=== PATIENT | male | born 1955 | race Caucasian/White ===

== ENCOUNTER → 2020-02-10 08:29 | Outpatient (CLI) | payer MEDICARE, SELFPAY ==
[2020-02-11 06:07] LABS: COVID19 Sendout Not Detected (Not Detect)
== END ==
PROVIDERS: PCP Family Medicine; Visit Provider Physician Assistant
DX: Z11.59 Encounter for screening for other viral diseases (principal)
CPT/HCPCS: 87635

== ENCOUNTER 2020-02-13 06:20 | Day surgery (SDC) | payer MEDICARE, SELFPAY ==
[2020-02-12 07:55] VITALS: BMI 46.7
[2020-02-13] VITALS (10 sets, daily range): BP systolic 116–144; BP diastolic 49–69; PULSE 57–67; RESP 14–20; TEMP 36.3–36.8; O2SAT 92–96; BMI 46.7
[2020-02-13] MEDS: CELECOXIB 200 MG CAPSULE 400 MG PO (07:02)
[2020-02-13] MEDS: LACTATED RINGERS 1,000 ML 42 ML IV (07:03)
[2020-02-13] MEDS: DEXTROSE 50 % IN WATER 25 GM/50 ML SYRINGE IV (07:18)
--- NOTE | 2020-02-13 07:45 | PM.PREOP ---
Pre-operative Note COVID-19 COVID-19 status: Negative Result date/Date tested (Pos, Neg/Pending): 02/10/20 Interval Note History & Physical reviewed/Exam performed by Physician: Yes Changes to H&P: No
--- NOTE | 2020-02-13 07:46 | SUR.PREOP ---
Blood sugar up to 94 now after dextrose. Patient states he feels better. Notified OR nurse and anesthesiologist.
[2020-02-13] MEDS: CEFAZOLIN 2 GM/100 ML FROZ.PIGGY IV (07:49)
--- NOTE | 2020-02-13 08:22 | SUR.OPER ---
Lateral on padded OR bed with milian bag positioner, head on pillow, gel axillary roll in place, bottom leg bent with gel pad under knee to foot, upper leg straight and supported with pillows. Operative arm secured in shoulder positioning suspension device. non-operative arm secured on padded arm board. Safety belt at hip, tape over blanket securing lower legs.
[2020-02-13] MEDS: BUPIVACAINE 0.5% W/ EPI (PF) 30 ML VIAL INJ (08:31)
[2020-02-13] MEDS: SODIUM CHLORIDE IRRIG SOLUTION 3,000 ML, EPINEPHrine 1 MG IRR (08:31)
[2020-02-13] MEDS: fentaNYL 100 MCG/2 ML INJ IV ×4 (09:15→09:30)
--- NOTE | 2020-02-13 09:16 | P.OP_ITS ---
Operative Date/Time/Diagnoses Date of procedure: 02/13/20 Time of procedure: 09:16 Pre-op diagnosis: Left shoulder biceps tendinitis Post-op diagnosis: same Procedure & Clinicians Procedure: Left shoulder arthroscopic biceps tenodesis Same procedure as scheduled: Yes Indications: Whom the patient is a 64-year-old gentleman who has had a long history of left shoulder difficulty. He has had multiple prior operations including an anterior partial acromionectomy. He has gone on to develop significant discomfort which was partially relieved by biceps injection. He has agreed to arthroscopic biceps tenodesis after discussion the risks, benefits and alternatives. Risks discussed included but were not limited to: Failure of the procedure to relieve pain, pop by deformity, stiffness, infection, nerve damage, deep venous thrombosis, pulmonary embolism, stroke, myocardial infarction, permanent paralysis and . Surgeon: Vineet Uribe Valet Cashier: Marion Lebron Click Yes if Unassisted: No Anesthesia Type: General and Local Operative Notes Findings: 1. Intact glenohumeral cartilage 2. Glenoid labrum with degenerative fraying in the superior aspect from anterior to posterior without involvement of the biceps anchor 3. Intact glenohumeral ligaments 4. Intact subscapularis 5. Frayed and flattened biceps tendon 6. Intact supraspinatus 7. Intact infraspinatus 8. Normal axillary pouch 9. Subacromial space scarred in from prior surgery. 10. Absent anterior acromion 11. Distal clavicle previously excised 12. Exam under anesthesia notable for no limitations in range of motion and no obvious pathologic laxity. Closure Type: primary Specimen(s): none sent Prosthetic devices, grafts, tissues, transplants, or devices: One knotless 5.5 mm Healix Advance BR anchor Applied: implant(s) Estimated Blood Loss (mL): 10 Blood products transfused: none Procedure in detail: The patient was seen in the preoperative area where he identified his left shoulder as the operative site and this was marked with my initials. He received preoperative antibiotics and was taken to the operating room and placed on the operating room table in a supine position where he underwent a general anesthetic. Of note due to the patient's body habitus and sleep apnea it was felt he was not a good candidate for an interscalene block. After onset of satisfactory general anesthesia, the patient's left arm was examined under anesthesia and he was repositioned in the right lateral decubitus position with an axillary roll and padding for all pressure points. He was stabilized in this position using the beanbag and adhesive tape. The left arm was prepared from the fingertips to the base of the neck with ChloraPrep in the usual fashion and draped through sterile drapes. The arm was placed in 10 lb of balanced skin suspension. The subcutaneous landmarks were outlined on the skin with a marking pen. The prior portals were also marked. The posterior portal was created and the arthroscope inserted in the glenohumeral joint. An anterior superior portal was created overlying the rotator interval after diagnostic arthroscopy. A switching stick was used to introduce a 6 mm cannula through the rotator interval directly overlying the biceps as it exited the joint. An Arthrex FiberLink suture loop was placed around the biceps and the suture pulled through the loop to grasp the biceps. The suture was then penetrated through the biceps using a penetrating suture grasper just distal to the loop around the biceps to complete the grasping suture. Prior to placing the suture the bone underlying the mathew at the exit point of the biceps had been denuded to bleeding bone. A punch hole and an awl hole were created and the knotless anchor was placed over the FiberLink and introduced into the bone to complete the tenodesis. The biceps was then cut approximately 1 cm proximal to the suture loop. The biceps stump and the labral fraying were debrided with a shaver. The arthroscope was then maneuvered into the subacromial space through the posterior portal. Position in this area was confirmed by palpating the bone on the scope sheath. Visualization was extremely difficult based on the scarring. I elected not to perform a wide scar excision due to the fact that the patient had excellent range of motion and I was concerned about compromising rotator cuff integrity. All arthroscopic equipment was then withdrawn, the wounds were closed with 4 0 Monocryl and Steri-Strips. A total of 20 mL of 0.5% Marcaine with epinephrine was injected half in the subacromial space and half in the subcutaneous tissues for postoperative pain control. Complications: none Post-operative Condition: stable Disposition: PACU Plan for aftercare: The patient will be maintained on a standard subacromial d ecompression protocol with the additional restriction that he will not be allowed to lift any more than 1 lb with the left arm for 4 weeks. He will be discharged later today provided he satisfactorily recovers from his anesthesia.
[2020-02-13] MEDS: OXYCODONE IR 5 MG TABLET PO ×2 (09:32→10:01)
[2020-02-13] MEDS: HYDROMORPHONE 2 MG INJ IV ×2 (09:45→09:55)
[2020-02-13] MEDS: ACETAMINOPHEN 325 MG TABLET 975 MG PO (11:07)
--- NOTE | 2020-02-13 11:11 | SUR.PHASEII ---
Weaning patient from 2L O2 to room air; encouraged adequate resp; range 88-92%. Pt awake, talking, tolerating PO well. Pain currently 6/10, PO rx given, states that pain level is improving.
--- NOTE | 2020-02-13 11:15 | SUR.PHASEII ---
patient states that he has oxygen at home to use with his CPAP, instructed him to use any time he is dozing and is taking the narcotic.
--- NOTE | 2020-02-13 11:27 | SUR.PHASEII ---
1120 Discussed pts pain level (11/21) and O2 sat 91% with Dr. Hackett. She approved discharge with patient planning to use O2 and CPAP at home. No further pain meds ordered by
--- NOTE | 2020-02-13 11:43 | SUR.PHASEII ---
note: care was assumed from Chantal Gibbons RN; pt on O2 at 2LNP and continuous pulse ox. Pt weaned to 1L and then room air. See other notes.
== END 2020-02-13 11:33 | disposition home or self-care (01) ==
PROVIDERS: PCP Family Medicine; Referring Provider Family Medicine; Visit Provider Orthopaedic Surgery
PROC: (CPT 29805; principal; 2020-02-13 07:45)
DX: M75.22 Bicipital tendinitis, left shoulder (principal); E66.9 Obesity, unspecified; G47.33 Obstructive sleep apnea (adult) (pediatric); E11.9 Type 2 diabetes mellitus without complications; I11.0 Hypertensive heart disease with heart failure; K21.9 Gastro-esophageal reflux disease without esophagitis; J45.909 Unspecified asthma, uncomplicated; Z87.891 Personal history of nicotine dependence; Z79.4 Long term (current) use of insulin; Z68.42 Body mass index [BMI] 45.0-49.9, adult
CPT/HCPCS: 29828; 29823; J0171; J0330; J0690; J1170; J2405; J2704; J3010

== ENCOUNTER → 2020-06-15 08:48 | Outpatient (CLI) | payer MEDICARE, SELFPAY ==
[2020-06-15 10:13] LABS: COVID19 -Nasal RAPID Negative (Negative)
== END ==
PROVIDERS: PCP Family Medicine; Visit Provider Physician Assistant
DX: Z20.828 Contact with and (suspected) exposure to other viral communicable diseases (principal)
CPT/HCPCS: 87635

== ENCOUNTER 2020-06-17 06:18 | Inpatient (IN) | payer MEDICARE, SELFPAY ==
[2020-06-11 08:52] VITALS: BMI 46.3
[2020-06-17] VITALS (21 sets, daily range): BP systolic 92–139; BP diastolic 35–74; PULSE 56–68; RESP 12–26; TEMP 35.8–36.8; O2SAT 3–98; BMI 47.2
--- NOTE | 2020-06-17 | PATH_ITS ---
[facility] Accession Number: [id number] . 01 Material submitted: . PART A: knee - RIGHT KNEE SYNOVIUM PART B: femur - RIGHT FEMUR PART C: femur - RIGHT FEMUR #2 PART D: tibia - RIGHT TIBIA #1 PART E: tibia - RIGHT TIBIA #2 . 01 Clinical history: . FROZEN SECTION DX: NO NEUTROPHILS IDENTIFIED ON FEDERAL APPELLATE LAW CLERK SECTIONS. B,C,D,E: #2,#3,#4,#5: NO NEUTROPHILS IDENTIFIED GROSS DESCRIPTION: A: RIGHT KNEE SYNOVIUM: 2.4 X 8 X 0.5CM MCNEAL-WHITE IRREGULAR SOFT TISSUE WITH A 3CM X 0.3 X 0.3 EDGE OF LIGHT BROWN DISCOLORATION. B: RIGHT FEMUR #1: 1.7 X 1.8 X 0.5 CM TRIANGULAR SOFT WHITE-MCNEAL TISSUE. C: RIGHT FEMUR #2: 2 PCS 1 X 0.5 X 0.1 CM AND 2.0 X 0.5X 0.8CM MCNEAL PINK IRREGULAR SOFT TISSUE. D: 0.7 X 0.9 X 0.4 RED-BROWN IRREGULAR SOFT TISSUE FRAGMENT. E: 1.2 X 0.5 X 0.5 SHAGGY MCNEAL BROWN SOFT TISSUE . 02 Frozen section diagnosis: . FSA: NO NEUTROPHILS IDENTIFIED ON FEDERAL APPELLATE LAW CLERK SECTIONS. FSB: NO NEUTROPHILS IDENTIFIED. FSC: NO NEUTROPHILS IDENTIFIED. FSD: NO NEUTROPHILS IDENTIFIED. FSE: NO NEUTROPHILS IDENTIFIED. . Dr. Garner discussed the intraoperative consultation results with Dr. Uribe on 06/17/2020.Frozen section was performed at [address] JOSE/TAYLOR . 03 Diagnosis: A-E. Right Knee Synovium, Right Femur, Right Femur #2, Right Tibia #1, Right Tibia #2, Revision and Biopsies, Respectively: Synovial-like tissue with reactive changes, including sheets of histiocytes, scattered foreign body giant cells, collagenous fibrous tissue, occasional calcifications and scattered lymphocytes, consistent with periprosthetic changes. Negative for active/neutrophilic inflammation. No evidence of neoplasm. [facility] 06/19/2020 1605 Local . 03 Electronically signed: . Liseth Garner MD, Pathologist NPI- [id number] . 01 Gross description: . A. Received fresh for frozen section diagnosis at [facility], labeled right knee synovium consists of an 8.0 x 2.4 x 0.5 cm mcneal-white irregular soft tissue fragment with a 3.0 x 0.3 x 0.3 cm edge of light brown discoloration. Title Investigator sections are submitted for frozen section diagnosis on 06/17/[address] Garner and reported to Dr. Uribe. Title Investigator sections are submitted. . A1 - frozen section remnants. A2 - denial management representative sections of unfrozen tissue. . B. Received fresh for frozen section diagnosis, labeled 'right femur consists of a 1.8 x 1.7 x 0.5 cm triangular soft white-mcneal tissue fragment. The frozen section is done at [facility] on 06/17/[address] Garner and reported to Dr. Uribe. The specimen is entirely submitted. . B1 - frozen section remnant. . C. Received fresh for frozen section diagnosis, labeled right femur specimen #2 consists of two mcneal-pink irregular fragments of soft tissue measuring 1.0 x 0.5 x 0.1 cm and 2.0 x 0.5 x 0.8 cm. The frozen section was done at [facility] on 06/17/[address] Garner and reported to Dr. Uribe. The specimen is entirely submitted. . C1 - frozen section remnants. . D. Received fresh for frozen section diagnosis, labeled right tibia specimen tibia #1 consists of a 0.9 x 0.7 x 0.4 cm red-brown irregular soft tissue fragment. The frozen section was done at [facility] on 06/17/[address] Garner and reported to Dr. Uribe. The specimen is entirely submitted. . D1 - frozen section remnant. . E. Received fresh for frozen section diagnosis, labeled right tibia specimen tibia #2 consists of a 1.2 x 0.5 x 0.5 cm shaggy mcneal-brown soft tissue fragment. The frozen section was done at [facility] on 06/17/[address] Garner and reported to Dr. Uribe. The specimen is entirely submitted. . E1 - frozen section remnant. (EA:[id number]) /MRV 06/18/2020 1036 Local . 03 Pathologist provided ICD-10: Z96.659 . 03 CPT . 378618, 379845, 837669, 568630, 535905, 662259, 573707, 657519, 429560, [id number] Performed at: 01 [facility] [address] [id number] MD Milton Keane MD Phone: [phone] Performed at: 02 [facility] [place] [id number] [place] [id number] MD Corinne Silva MD Phone: [phone] Performed at: [address] [facility] [address] [id number] MD Liseth Garner MD Phone: [phone]
--- NOTE | 2020-06-17 07:07 | DI.RAD.S_ITS ---
PROCEDURE: XR KNEE RT 1TO2V INDICATIONS: post op total knee TECHNIQUE: 2 view(s) of the knee acquired. COMPARISON: None. FINDINGS: Bones: Patient is status post knee joint arthroplasty. Hardware components are in expected positions. Visualized bony structures are intact. Soft tissues: Overlying postoperative changes are noted. IMPRESSION: Expected postoperative appearance Dictated by: Sathish Bell M.D. on 06/17/2020 at 12:23 Approved by: Sathish Bell M.D. on 06/17/2020 at 12:24
[2020-06-17] MEDS: CELECOXIB 200 MG CAPSULE PO (07:20)
[2020-06-17] MEDS: ACETAMINOPHEN 325 MG TABLET 975 MG PO (07:20)
[2020-06-17] MEDS: PREGABALIN 75 MG CAPSULE PO (07:20)
--- NOTE | 2020-06-17 07:34 | PM.PREOP ---
Pre-operative Note COVID-19 COVID-19 status: Negative Result date/Date tested (Pos, Neg/Pending): 06/15/20 Interval Note History & Physical reviewed/Exam performed by Physician: Yes Changes to H&P: No
[2020-06-17] MEDS: LACTATED RINGERS 1,000 ML 42 ML IV ×2 (07:38→09:02)
[2020-06-17] MEDS: CEFAZOLIN VIAL 3 GM in SODIUM CHLORIDE 0.9% 100 ML 200 ML IV ×3 (07:53→23:49)
[2020-06-17] MEDS: TRANEXAMIC ACID 1,000 MG VIAL 1000 MG INJ (08:20)
--- NOTE | 2020-06-17 08:26 | SUR.OPER ---
Supine on padded OR bed, head on pillow, arms secured on padded arm boards at <90 degrees abduction, legs uncrossed, safety belt at lower abdomen, tape over blanket over left lower leg. Right leg in Demayo positioner.
[2020-06-17] MEDS: MORPHINE 4 MG/ML INJ INJ (08:37)
[2020-06-17] MEDS: BUPIVACAINE LIPOSOME 266 MG/20 ML VIAL INJ (08:37)
[2020-06-17] MEDS: BUPIVACAINE 0.25% W/ EPI 30 ML VIAL 60 ML INJ (08:38)
[2020-06-17] MEDS: TRANEXAMIC ACID 1,000 MG VIAL 1000 MG IV (11:10)
--- NOTE | 2020-06-17 11:21 | PM.OP.1 ---
Operative Date/Time/Diagnoses Date of procedure: 06/17/20 Time of procedure: 11:21 Pre-op diagnosis: Failed right knee replacement Post-op diagnosis: same Procedure & Clinicians Procedure: Right revision total knee replacement of both femur and tibia Same procedure as scheduled: Yes Indications: The patient is a 65-year-old gentleman who had a total knee replacement done approximately 8-10 years ago. He presented 1 year ago to [facility] with a swollen painful knee which was thought to be infected. This was treated with an arthroscopic washout. There were no signs of infection subsequently on aspiration and all laboratory studies. The patient is taken to the operating room for revision of his painful total knee. He was aware that the surgery could involve an explant with a cement spacer or a revision total knee depending on the findings of pathology. He agreed to surgery after discussion the risks benefits and alternatives. Risks discussed included but were not limited to: Failure to improve symptoms, stiffness, infection, nerve damage, deep venous thrombosis, pulmonary embolism, stroke, myocardial infarction, permanent paralysis and . Surgeon: Vineet Uribe Regional Loss Prevention Manager: Vinny Corona Click Yes if Unassisted: No Anesthesia Type: General, Spinal and Local Operative Notes Findings: The knee did not appear to be infected. The femur was well fixed. The tibial component had de bonded from the cement mantle. Closure Type: primary Specimen(s): other (Swabs were sent for culture. Five different specimens were sent for pathology all of which returned negative for neutrophils.) Prosthetic devices, grafts, tissues, transplants, or devices: Implants used in this procedure were manufactured by the [employer] and included a legion constrained revision total knee system with a size 6 right revision tibial base plate with a 2 mm offset press operator helper a 15 mm straight 160 mm long stem, the femoral side included a size 7 Oxinium constrained femoral component with 2 5 mm distal screw on femoral wedges, a 4 mm offset press operator helper and a 16 mm 160 mm long stem. There was a 13 mm posterior stabilized tibial insert. The patella was left in situ as it was well fixed and there was no evidence of infection. Removed from the patient were two DePuy components with a posterior stabilized PFC Sigma femur and a rotating platform tibial component. Applied: implant(s) Estimated Blood Loss (mL): 100 Blood products transfused: none Tourniquet time (min): 132 Procedure in detail: The patient was seen in the pre-operative area, where the patient identified the right knee as the operative site and this was marked with my initials. The patient received pre-operative antibiotics, and was taken to the operating room and placed on the operative table in the supine position. After satisfactory anesthesia, a timekeeper supervisor out was performed. The right leg was encircled with a tourniquet about the proximal thigh, and the leg was prepared from the toes to the tourniquet with ChloroPrep in the usual fashion and draped through sterile drapes. The leg was elevated and exsanguinated with Eschmark bandage and the tourniquet inflated to 250 mmHg pressure. The knee was approached through an approximately 18 cm incision centered over the patella, excising the widened proximal portion of the scar and an area overlying the patella where there was heavy keratosis. This was carried into the knee through a medial parapatellar arthrotomy. The medial soft tissue sleeve was elevated from the tibia to allow better access. The scar tissue from behind the patellar tendon was also excised and the capsule was elevated from the lateral proximal tibia as well. Synovium was obtained for pathologic review. The rotating tibial insert was removed. The mini saw and osteotomes were used to break down the cement mantle behind the femur and the femoral component was removed. Soft tissue from 2 areas behind the femur was removed and sent for pathology. This process that was then repeated for the tibia and again 2 tissue samples were sent for pathologic review. At this point the leg was wrapped lightly with the Esmarch bandage with the sponges in the knee and the tourniquet deflated at a tourniquet time of 58 minutes while we waited for pathology. All pathology returned negative for neutrophils. The tourniquet was then reinflated 16 minutes later to 250 mm of mercury. The Reamers were placed in the tibia up to a size 15 which had good cortical bite. This was used as an intramedullary guide for the proximal tibial skin cut. There was no need for tibial augmentation. The 2 mm offset guide made the tibial plate fit in the best position. The plate was pinned and the area over drilled for the press operator helper and the proximal tibial stem. The fin cuts were also made. The trial tibia was assembled and placed and pinned in position. We then used the cylindrical reamers on the femur. It appeared that the size 7 was the closest match to the size that had been removed. This set on the anterior femoral cortex with a 4 mm posterior offset. The appropriate reaming was done to accommodate the press operator helper on the femur as well. The anterior posterior and chamfer cuts were made after a distal skim cut. The rotational landmarks of Sevier's line and the transepicondylar axis were marked on the femur with electrocautery and it appeared that the rotation of the femoral component was appropriate. The posterior capsule was injected with part of a mixture of 50 ml 0.25% Marcaine mixed with 20 ml Exparel and 4 mg of morphine for post-operative pain control. The remainder of this mixture was injected into the capsule and subcutaneous tissues during cement curing. There was no need for a lateral release. The trials were then removed, and the revision components assembled on the back table. The bone was prepared with pulsatile lavage, and dried with a sponge. Cement was applied and the final prosthetics placed. Excess cement was removed during and after cement curing. After confirming there was no extruded cement posteriorly, the final tibial insert was placed. The knee was copiously irrigated and the tourniquet deflated at a total tourniquet time of 132 minutes for both uses. Hemostasis was obtained. The capsule was closed with interrupted # 2 polyester suture. The subcutaneous layer was closed with 3-0 Vicryl, and the skin with [place] and Dermabond. An Merle dressing was applied and the patient was taken to recovery having tolerated the procedure well. Complications: none Post-operative Condition: stable Disposition: PACU Plan for aftercare: The patient will be maintained on a standard total knee protocol with weight-bearing as tolerated. He will be discharged when he is safe for his home environment.
[2020-06-17] MEDS: OXYCODONE IR 5 MG TABLET 10 MG PO (12:06)
[2020-06-17] MEDS: ONDANSETRON 4 MG/2 ML INJ IV (12:46)
[2020-06-17] MEDS: LACTATED RINGERS 1,000 ML 100 ML IV ×2 (12:49→22:57)
[2020-06-17] MEDS: IBUPROFEN 400 MG TABLET PO ×3 (13:31→20:37)
[2020-06-17] MEDS: INSULIN ASPART 100 UNIT/ML INSULN PEN SUBCUT (13:34)
[2020-06-17] MEDS: diphenhydrAMINE 25 MG TABLET PO ×2 (14:34→20:35)
[2020-06-17] MEDS: ACETAMINOPHEN 325 MG TABLET 650 MG PO ×2 (14:35→20:38)
--- NOTE | 2020-06-17 15:00 | PT.IIE ---
Current Diagnoses Broken internal right knee prosthesis, initial encounter (06/17/20) Surgery Performed Operation Date: 06/17/20 07:45 Actual Procedures p Total Knee Arthroplasty Revision (Right) - Vineet Uribe MD Surgical History (Last Updated 06/11/20 @ 09:27 by Christina Jefferson RN) History of arthroplasty of right knee (~2008) History of arthroscopy of left shoulder (02/13/20) History of bladder surgery History of bone graft History of lumbar spinal fusion Hx of appendectomy Hx of arthroscopy of left knee Hx of arthroscopy of right knee Hx of cervical spine surgery Hx of eye surgery Hx of foot surgery Hx of hernia repair Hx of sinus surgery Hx of tonsillectomy S/P TURP Medical History (Last Updated 06/11/20 @ 09:33 by Christina Jefferson RN) SAULO (acute kidney injury) Asthma Bladder cancer (~05/2010) BPH w urinary obs/LUTS CKD stage G3a/A3, GFR 45-59 and albumin creatinine ratio >300 mg/g Diabetes mellitus, type II GERD (gastroesophageal reflux disease) Gout HLD (hyperlipidemia) HTN (hypertension) Hyperkalemia Hypoxemia JESSIE on CPAP PVD (peripheral vascular disease) Right-sided carotid artery disease RLS (restless legs syndrome) TIA (transient ischemic attack) Physical Therapy Inpatient Evaluation/Re-Eval M1 PT/OT-IP Prior Functional Status Start: 06/17/20 12:50 Freq: NEEDED Status: Active Protocol: Document 06/17/20 14:57 AW (Rec: 06/17/20 15:25 AW [id number]) Medical Review Prior Functional Status Medical History Reviewed Yes Communication WNL. Pt is an effective verbal communicator. Mobility and Gait Pt states he ambulates slowly with a maximum of one block before needing a rest due to pain. He uses a SPC when my knee is really sore. Activities of Daily Living and IADL's Independent with all ADL's. Pt is an active auto transport driver. Prior Functional Level (Other details) Pt had R TKA in March 2009, multiple shoulder surgeries, lumbar and cervical surgery over the years. One year ago, he developed pain in his right knee which was treated with I &D. No infectious source was ever identified. Social History Household Members spouse,family Living Arrangements House Number of Floors (Floors) Two Floors Number of Stairs To Enter/Railing? 7 NICCI with concrete wide bilateral rails. Pt plans to stay main level as long as needed before going up stairs to regular bedroom. Home Environment Standard Height Toilet,Tub/ Shower Home Equipment Front Wheel Walker,Straight Cane,Crutches,Raised Toilet Seat w/Armrests,Shower Seat with Backrest,Hand Held Shower ,Collar Tailor,Sock Aid Employment Status Retired Additional Social History Comment Pt has an adjustable bed at home. He lives in with his , Regla, and adult daughter, Michelle. His brother lives in [place] and will be pt's ride at discharge . He and pt's /family will be able to assist as needed. M2 PT-IP Current Condition Start: 06/17/20 12:50 Freq: NEEDED Status: Active Protocol: Document 06/17/20 14:57 AW (Rec: 06/17/20 15:27 AW [id number]) Physical Therapy Current Condition Current Condition Evaluation Date 06/17/20 Treatment Diagnosis R TKA revision; difficulty in walking Onset Date 06/17/20 Weight Bearing Status Weight Bearing Status Weight Bear as Tolerated M3 PT-IP Subjective Start: 06/17/20 12:50 Freq: NEEDED Status: Active Protocol: Document 06/17/20 14:57 AW (Rec: 06/17/20 15:27 AW [id number]) Subjective Physical Therapy Visit Type Type Initial Evaluation Visit Start Time 14:13 Visit Stop Time 14:57 Total Visit Minutes 44 Number of CEMENT HANDLER Visits 0 Physical Therapy Visit Comments Patient Comments I've been looking forward to PT. Patient Goals Home with assist Therapy Pain Assessment Pain When Pain Assessed During Mobility Pain Present Pain Present Pain Reported Location right knee Intensity 7 Scale Used 6/10 at rest; 7/10 with WB Pain Management Techniques Apply Cold,Timing of Activity with Medications M4 PT-IP Mobility and Gait Start: 06/17/20 12:50 Freq: NEEDED Status: Active Protocol: Document 06/17/20 14:57 AW (Rec: 06/17/20 16:49 AW [id number]) PT-Bed Mobility Assessment Supine to Sit Supine to Sit Standby Assistance Scooting Scooting to Edge of Bed Standby Assistance PT-Transfer Assessment Sit to and From Stand Sit to and from Stand Standby Assistance Equipment Transfer Assistive Device Gait Belt,Front Wheeled Walker Orthotic/Prosthetic Devices or Brace: No Transfers Transfer Destination Chair Transfer Technique Stand Step Pivot Transfer Ability Level of Assist Standby Assistance Comments Mobility Comments Pt completed all bed mobility, sit to stand, ambulation with FWW, and transfers SBA with no LOB. Gait Assessment Gait Gait Assistance Required: Standby Assistance Distance (Feet) 225 Able to Maintain Weight Bearing Status Yes During Gait Assistive Devices Assistive Device Gait Belt,Front Wheeled Walker Orthotic/Prosthetic Devices or Brace: No Gait Deviations General Gait Pattern Antalgic,Decreased Stride Length,Decreased Feet Clearance,Flexed Trunk,Step-to Gait,Wide Based Gait Factors Limiting Gait Function Factors Limiting Gait Function Decreased Activity Tolerance, Decreased Strength,Pain,Poor Balance Comments Gait Comments Gait pattern was step-to initially with improvement in response to cues but gait degraded with increased distance. Pt did not require increase in assist. Stair Climbing Assessment Comments Stair Climbing Comments Not assessed. PT-Balance Assessment Sitting Balance and Reactions Static Sitting Balance Ability Good Dynamic Sitting Balance Ability Good Standing Balance and Reactions Static Standing Balance Ability Good Dynamic Standing Balance Ability Good Device Used FWW M5 PT-IP Objective Assessments Start: 06/17/20 12:50 Freq: NEEDED Status: Active Protocol: Document 06/17/20 14:57 AW (Rec: 06/17/20 16:49 AW [id number]) Orientation Orientation/Cognition Level of Alertness Alert Orientation Name,Age,Birthday,Month,Date, Year,Day of Week,Place, Situation Language Function Ability No Deficits Noted Safety Awareness Understands Safety Issues Memory Description No Deficits Noted Gross Range of Motion Lower Extremity ROM Assessment Right Impaired Strength Lower Extremity Strength Assessment Right Impaired Hip 4/5 Knee 3+/5 Ankle 4+/5 Comments Strength Comments LLE grossly 5/5 Coordination Assessment Gross Coordination Gross Coordination WNL Sensation Assessment Sensation Gross Sensation WNL Comments Sensation Comments Pt denied numbness in BLE Muscle Tone Muscle Tone WNL Yes M6 PT-IP Treatment Start: 06/17/20 12:50 Freq: NEEDED Status: Active Protocol: Document 06/17/20 14:57 AW (Rec: 06/17/20 16:49 AW [id number]) Physical Therapy Treatment Exercises Exercises Ankle Pumps,Quad Sets,Heel Slides,Passive Knee Extension Hang Education Education Provided Precautions,Weight Bearing Status,Post-Op Packet,Safety Other Treatments Other Treatment Performed Provided education on role of PT, plan of care, weightbearing status, and safe use of FWW. M7 PT-IP Assessment and Plan Start: 06/17/20 12:50 Freq: NEEDED Status: Active Protocol: Document 06/17/20 14:57 AW (Rec: 06/17/20 16:49 AW [id number]) PT Summary Assessment and Plan Potential Rehabilitation Potential Excellent Status of Condition at Evaluation Evolving Summary Impairments Pain,ROM,Strength,Balance,Bed Mobility,Transfers,Gait Assessment Summary Taj is a 65 yo man seen for PT evaluation on POD0 following revision R TKA. He had his original surgery in 2008 and has had increasing pain over the past year. He has had multiple other orthopedic surgeries including shoulder, lumbar, and cervical procedures. Pt is independent in all regards at baseline except for occasional use of SPC when the knee is really sore. Pt required SBA for all mobility on evaluation. PT anticipates he will progress and be safe to discharge home with assist and outpatient PT once medically cleared. Pt has already scheduled outpatient evaluation at [facility] in . Goals Bed Mobility Goal Independent Transfer Goal Independent,Front Wheeled Walker Gait Goal Independent,Front Wheel Walker Gait Distance 200 Other Goals - up/down 7 steps with unilateral rail SBA Days to Meet Goals 2 Frequency of Treatment Frequency Of Treatment Twice a Day Treatment Plan Physical Therapy Treatment Plan Bed Mobility Training,Transfer Training,Gait Training, Therapeutic Exercise,Balance Retraining,Post Op Education, Discharge Planning,Hot or Cold Pack Recommendations To Nursing Amount of Assist Needed Standby Assistance Discharge Recommendations PT Discharge Recommendations Home with Assistance, Outpatient PT Transportation Needs at Discharge Private Vehicle
--- NOTE | 2020-06-17 15:36 | PC.ADMIT ---
[facility] Admission Note: Safe hand off from OR. Patient came to the floor at 1330. Patient was on 4 liters NC, desat's without Oxygen into the 80's. VSS but patient is a little hypotensive. Patient is 95% on 4 liters of O2. BS check when he came to the floor was 139 with 2 units of coverage given. Patient is tolerating PO intake no nausea. Pain is 6/10. Patient has been itchy. Juliet Mims PAC telephoned and a verbal order was given for 25mg of Benadryl Q4 as needed. SCD's applied, IS provided. The bed is low and locked, call light within reach and teaching done, bed is low and locked. The patient,Alvin Donovan,65 y/o, was given written information regarding hospital policies, unit procedures and contact persons. Patient's smoking status: Former smoker. Vital Signs - 8 hr 06/17/20 11:25 06/17/20 11:30 06/17/20 11:35 Temperature 97 F L Pulse Rate 68 67 67 Respiratory Rate 12 18 20 Blood Pressure 93/52 L 113/50 L 112/37 L Pulse Oximetry 95 94 3 L 06/17/20 11:40 06/17/20 11:45 06/17/20 11:50 Temperature Pulse Rate 65 66 66 Respiratory Rate 26 H 18 19 Blood Pressure 113/35 L 100/55 L 103/50 L Pulse Oximetry 94 95 4 L 06/17/20 11:55 06/17/20 12:01 06/17/20 12:06 Temperature 97.3 F L 97.2 F L Pulse Rate 65 65 Respiratory Rate 22 18 Blood Pressure 117/74 117/41 L Pulse Oximetry 94 93 06/17/20 12:15 06/17/20 12:45 06/17/20 13:15 Temperature 97.0 F L 97.2 F L 97.2 F L Pulse Rate 68 56 L 60 Respiratory Rate 20 20 22 Blood Pressure 117/49 L 92/48 L 99/42 L Pulse Oximetry 94 95 94 06/17/20 14:15 06/17/20 15:15 06/17/20 15:17 Temperature 97.6 F 97.5 F L Pulse Rate 60 58 L 60 Respiratory Rate 20 22 16 Blood Pressure 109/52 L 112/61 Pulse Oximetry 96 95 97
[2020-06-17] MEDS: DOCUSATE 100 MG CAPSULE PO (20:35)
[2020-06-17] MEDS: METFORMIN HCL 500 MG TABLET 1000 MG PO (20:36)
[2020-06-17] MEDS: PANTOPRAZOLE 20 MG TABLET PO (20:36)
[2020-06-17] MEDS: FUROSEMIDE 40 MG TABLET PO (20:38)
[2020-06-17] MEDS: AMLODIPINE 5 MG TABLET 10 MG PO (20:38)
[2020-06-17] MEDS: SIMVASTATIN 20 MG TABLET PO (20:38)
[2020-06-17] MEDS: OXYCODONE IR 10 MG TABLET PO (20:38)
[2020-06-17] MEDS: PRAMIPEXOLE 0.25 MG TABLET 0.75 MG PO (20:39)
[2020-06-17] MEDS: MAGNESIUM CHLORIDE 64 MG TABLET 128 MG PO (20:57)
[2020-06-17] MEDS: atenoloL 50 MG TABLET 100 MG PO (20:57)
[2020-06-17] MEDS: TERAZOSIN 5 MG CAPSULE PO (20:57)
[2020-06-17] MEDS: INSULIN GLARGINE 100 UNIT/ML 3ML PEN 120 UNIT SUBCUT (21:16)
--- NOTE | 2020-06-17 23:22 | PC.NURSE ---
Stable post op course. A/O, med @ 2130 for discomfort w/good relief. IVF infusing as per MD orders w/o [employer]. Angie/Acewrap ds to right surgical knee CDI. CBG = AC= 83; HS = 103 Received Lantus dose @ HS. Call light w/in reach, bed alarm on for pt safety. Continue w/plan of care.
[2020-06-18] VITALS (9 sets, daily range): BP systolic 94–131; BP diastolic 45–74; PULSE 62–85; RESP 13–18; TEMP 36.3–36.9; O2SAT 91–97
[2020-06-18] MEDS: IBUPROFEN 400 MG TABLET PO ×4 (00:34→14:15)
[2020-06-18] MEDS: OXYCODONE IR 5 MG TABLET PO (00:34)
--- NOTE | 2020-06-18 01:05 | PC.NURSE ---
Addendum entered by Almita Bolivar R.N. 06/18/20 04:49: Complains of 7/10 right knee pain and itching; medicated with Oxycodone + Ibuprofen + Benadryl. CBG check earlier was 66 so patient given snack but fell asleep before eating it so when back to recheck BG had to be awakened. Ate snack after which BG only 67 so given additional snack and will recheck when complete. Addendum entered by Almita Bolivar R.N. 06/18/20 02:15: Correction to previous documentation: fall risk score is high and bed alarm is activated Original Note: 2352 patient seen and assessed. Is alert and oriented. Breath sounds diminished at bases; using CPAP + 2L/min oxygen bled in with sat of 91%. HRR. BP low at 94/49 but is asymptomatic. Denies nausea. BT hypoactive but states he has passed small amount of flatus. Had not voided since return from surgery and had bladder scan > 400cc so in/out cath done at change of shift with 425cc dark maria victoria urine returned. Is able to move himself in bed. Has chronic numbness in left leg but otherwise CMS is intact bilaterally. NISH dressing to right knee is intact and functioning; wrapped with arsh. Was medicated at 0034 with Oxycodone + scheduled Ibuprofen for 6/10 right knee pain and is currently asleep. Wearing bilateral calf SCD's. Fall risk score is moderate and bed alarm is activated
[2020-06-18] MEDS: diphenhydrAMINE 25 MG TABLET PO ×4 (04:44→23:37)
[2020-06-18] MEDS: OXYCODONE IR 10 MG TABLET PO ×4 (04:45→17:49)
[2020-06-18 06:51] LABS: Hematocrit 38.2 % (41-53); Hemoglobin 12.4 g/dL (13.5-17.5)
--- NOTE | 2020-06-18 07:34 | P.PN_ITS ---
Subjective Subjective Date Patient Seen: 06/18/20 Time Patient Seen: 07:34 Interval history: POD #1 s/p revision right TKA with Dr. Uribe. Patient's pain is well controlled with oxycodone 10 mg. He has not been able to void since 11:00 p.m. and was straight cathed. He has been on O2 nasal cannula 2L. He has mobilized with PT in the hallway and stairs. Exam Vital Signs (past 8 hours): - 06/18/20 00:25 06/18/20 03:05 Temperature 98.3 F 97.5 F L Pulse Rate 62 68 Respiratory Rate 14 15 Blood Pressure 94/49 L 113/54 L Pulse Oximetry 91 92 Oxygen Delivery Method Room Air,CPAP Oxygen Flow Rate 2 Narrative Exam Narrative: Patient lying in bed in NAD. He is alert and oriented X3. Calves are soft, compressible, and nontender bilaterally. He is able to actively dorsiflex plantar flex. Pulses are symmetrical. Sensation intact to light touch throughout bilateral lower extremities. Merle dressing CDI, and functioning. Objective Labs Result Diagrams: 06/18/20 06:36 06/18/20 08:28 Labs: Laboratory Results - last 24 hr 06/18/20 06:36 Hgb 12.4 L Hct 38.2 L PFSH Medical History SAULO (acute kidney injury) Asthma Bladder cancer (~05/2010) BPH w urinary obs/LUTS CKD stage G3a/A3, GFR 45-59 and albumin creatinine ratio >300 mg/g Diabetes mellitus, type II GERD (gastroesophageal reflux disease) Gout HLD (hyperlipidemia) HTN (hypertension) Hyperkalemia Hypoxemia JESSIE on CPAP PVD (peripheral vascular disease) Right-sided carotid artery disease RLS (restless legs syndrome) TIA (transient ischemic attack) Surgical History History of arthroplasty of right knee (~2008) History of arthroscopy of left shoulder (02/13/20) History of bladder surgery History of bone graft History of lumbar spinal fusion Hx of appendectomy Hx of arthroscopy of left knee Hx of arthroscopy of right knee Hx of cervical spine surgery Hx of eye surgery Hx of foot surgery Hx of hernia repair Hx of sinus surgery Hx of tonsillectomy S/P TURP Social History household members: spouse and family Smoking Status: Former smoker alcohol intake: current Assessment & Plan Post-op Postoperative Procedures: Procedures Operation Date: 06/17/20 07:45 Actual Procedures Side Surgeon p Total Knee Arthroplasty Revision Right Vineet Uribe MD Patient will continue to mobilize with PT. Since he has been on O2 overnight he will need to be walked around the hallway with a pulse oximeter prior to discharge and to make sure he does not desaturate. Encourage incentive spirometer use. Patient has a history of urinary retention, after his last surgery he required a catheter for 10 days. He says this has happened after multiple surgeries. He takes terazosin. Patient's BMP checked today, safe to proceed with Lovenox, but his potassium is elevated and recommending he follow up with his sales service representative regarding lisinopril management. His blood sugars have been low, if he needs to stay overnight another night recommending hospitalist consultation. Patient is morbidly obese with multiple medical comorbidities. Once he finishes his Lovenox he will start ASA 81 mg b.i.d.. If patient is able to mobilize safely with adequate pain control, he can discharge home today with Allen catheter. Quality VTE Deep Vein Thrombosis/Pulmonary Embolism Present on Admission: No
[2020-06-18 09:17] LABS: BUN Creatinine Ratio 20.2 (6-22); Blood Urea Nitrogen 51 mg/dL (9-20); Calcium 7.9 mg/dL (8.4-10.2); Carbon Dioxide 29 mmol/L (22-32); Chloride 100 mmol/L (98-107); Estimated Glomerular Filt Rate 25.9 mL/min (>60); Glucose 125 mg/dL (80-110); HEMOLYSIS < 15 (0-50); Sodium 131 mmol/L (137-145)
[2020-06-18 09:18] LABS: Potassium 5.9 mmol/L (3.4-5.1)
[2020-06-18] MEDS: ENOXAPARIN 30 MG/0.3 ML SYRINGE SUBCUT (09:18)
[2020-06-18] MEDS: allopurinoL 300 MG TABLET PO (09:19)
[2020-06-18] MEDS: allopurinoL 100 MG TABLET PO (09:19)
[2020-06-18] MEDS: PANTOPRAZOLE 20 MG TABLET PO ×2 (09:20→20:54)
[2020-06-18] MEDS: DOCUSATE 100 MG CAPSULE PO ×2 (09:20→20:53)
[2020-06-18] MEDS: MAGNESIUM CHLORIDE 64 MG TABLET 128 MG PO ×2 (09:20→21:16)
[2020-06-18] MEDS: atenoloL 50 MG TABLET 100 MG PO ×2 (09:22→21:14)
[2020-06-18] MEDS: ACETAMINOPHEN 325 MG TABLET 650 MG PO ×3 (09:22→20:54)
[2020-06-18] MEDS: METFORMIN HCL 500 MG TABLET 1000 MG PO (09:22)
[2020-06-18] MEDS: FUROSEMIDE 40 MG TABLET PO (09:22)
[2020-06-18] MEDS: LACTATED RINGERS 1,000 ML 100 ML IV (09:23)
--- NOTE | 2020-06-18 09:55 | PT.IPTN ---
Current Diagnoses Broken internal right knee prosthesis, initial encounter (06/17/20) Surgery Performed Operation Date: 06/17/20 07:45 Actual Procedures p Total Knee Arthroplasty Revision (Right) - Vineet Uribe MD Physical Therapy Treatment Note M2 PT-IP Current Condition Start: 06/17/20 12:50 Freq: NEEDED Status: Active Protocol: Document 06/17/20 14:57 AW (Rec: 06/17/20 15:27 AW [id number]) Physical Therapy Current Condition Current Condition Evaluation Date 06/17/20 Treatment Diagnosis R TKA revision; difficulty in walking Onset Date 06/17/20 Weight Bearing Status Weight Bearing Status Weight Bear as Tolerated M3 PT-IP Subjective Start: 06/17/20 12:50 Freq: NEEDED Status: Active Protocol: Document 06/18/20 09:55 AB (Rec: 06/18/20 10:43 AB [id number]) Subjective Physical Therapy Visit Type Type Treatment Note Visit Start Time 09:55 Visit Stop Time 10:24 Total Visit Minutes 29 Number of CYTOPATHOLOGY TECHNOLOGIST Visits 0 Physical Therapy Visit Comments Patient Comments pt is agreeable to do PT Therapy Pain Assessment Pain When Pain Assessed At Rest Pain Present Pain Present Pain Reported Location right knee Intensity 5 Scale Used Numeric (0 - 10) Pain Management Techniques Distraction,Modification of Treatment,Timing of Activity with Medications M4 PT-IP Mobility and Gait Start: 06/17/20 12:50 Freq: NEEDED Status: Active Protocol: Document 06/18/20 09:55 AB (Rec: 06/18/20 10:43 AB [id number]) PT-Bed Mobility Assessment Supine to Sit Supine to Sit Standby Assistance Sit to Supine Sit to Supine Standby Assistance PT-Transfer Assessment Sit to and From Stand Sit to and from Stand Standby Assistance Equipment Transfer Assistive Device None,Front Wheeled Walker Orthotic/Prosthetic Devices or Brace: No Transfers Transfer Destination Bed,Chair Transfer Technique Stand Step Pivot Transfer Ability Level of Assist Standby Assistance Comments Mobility Comments pt sitting on chair. completed sit to stand SBA from the chair and ambulated ~ 30 ft in room using FWW SBA. performed bed mobility supine< >sit SBA. agreed to ambulate more and completed ~ 75 ft using FWW SBA to CGA and cues for R quads activation. completed up/down steps initially using B rails and completed another set with B hands holding on to R rail SBA to CGA. ambulated back to his room using FWW requiring SBA to CGA especially towards end of ambulation with c/o tiredness. pt tends to bear a lot weight on UE through FWW. pt requested to go back to bed afterwards and completed sit to supine SBA. positioned in bed. call light and table placed within reach. Gait Assessment Gait Gait Assistance Required: Standby Assistance,Contact Guard Assist Distance (Feet) 75 Able to Maintain Weight Bearing Status Yes During Gait Assistive Devices Assistive Device Gait Belt,Front Wheeled Walker Orthotic/Prosthetic Devices or Brace: No Gait Deviations General Gait Pattern Antalgic,Decreased Stride Length,Festinating,Step-to Gait,Wide Based Gait Factors Limiting Gait Function Factors Limiting Gait Function Decreased Activity Tolerance, Decreased Strength,Limited Range of Motion,Pain,Poor Balance,Poor Safety Awareness Comments Gait Comments pls refer to mobility section Stair Climbing Assessment Evaluation Level of Assist On Stairs Standby Assistance,Contact Guard Assistance Devices Stair Climbing Assistive Devices Left Railing,Right Railing Technique/Endurance Stair Climbing Direction Ascend and Descend Stair Climbing Technique Step to Step Number of Steps Climbed 3 Stair Climbing Set # Repetitions (reps) 2 Comments Stair Climbing Comments pls refer to mobility section for details M5 PT-IP Objective Assessments Start: 06/17/20 12:50 Freq: NEEDED Status: Active Protocol: Document 06/17/20 14:57 AW (Rec: 06/17/20 16:49 AW [id number]) Orientation Orientation/Cognition Level of Alertness Alert Orientation Name,Age,Birthday,Month,Date, Year,Day of Week,Place, Situation Language Function Ability No Deficits Noted Safety Awareness Understands Safety Issues Memory Description No Deficits Noted Gross Range of Motion Lower Extremity ROM Assessment Right Impaired Strength Lower Extremity Strength Assessment Right Impaired Hip 4/5 Knee 3+/5 Ankle 4+/5 Comments Strength Comments LLE grossly 5/5 Coordination Assessment Gross Coordination Gross Coordination WNL Sensation Assessment Sensation Gross Sensation WNL Comments Sensation Comments Pt denied numbness in BLE Muscle Tone Muscle Tone WNL Yes M6 PT-IP Treatment Start: 06/17/20 12:50 Freq: NEEDED Status: Active Protocol: Document 06/18/20 09:55 AB (Rec: 06/18/20 10:43 AB [id number]) Physical Therapy Treatment Education Education Provided Safety M7 PT-IP Assessment and Plan Start: 06/17/20 12:50 Freq: NEEDED Status: Active Protocol: Document 06/18/20 09:55 AB (Rec: 06/18/20 10:43 AB [id number]) PT Summary Assessment and Plan Potential Rehabilitation Potential Good Summary Impairments Pain,ROM,Strength,Balance,Bed Mobility,Transfers,Gait, Activity Tolerance Progress Towards Goals Progressing Toward Goals Assessment Summary pt requiring SBA to CGA with mobility using FWW. pt stated that his spouse will assist him at home but his brother who lives close by will also be able to assist him. pt may go home when medically stable . pt stated that he is set up for outpt PT. Goals Bed Mobility Goal Independent Transfer Goal Independent,Front Wheeled Walker Gait Goal Independent,Front Wheel Walker Gait Distance 200 Other Goals - up/down 7 steps with unilateral rail SBA Days to Meet Goals 2 Frequency of Treatment Frequency Of Treatment Twice a Day Treatment Plan Physical Therapy Treatment Plan Bed Mobility Training,Transfer Training,Gait Training, Therapeutic Exercise,Balance Retraining,Post Op Education, Discharge Planning,Hot or Cold Pack Recommendations To Nursing Amount of Assist Needed 1 Person Assist Discharge Recommendations PT Discharge Recommendations Home with Assistance, Outpatient PT Transportation Needs at Discharge Private Vehicle
--- NOTE | 2020-06-18 12:38 | PT-IP ANOTE ---
Attempted to see pt at 12:38, pt refused stating he wants to rest prior to d/c home. Pt confirms he has FWW for home use and outpatient rehab beginning Wednesday.
--- NOTE | 2020-06-18 13:31 | DI.RAD.S_ITS ---
PROCEDURE: XR CHEST 2V INDICATIONS: oxygen desaturation, SOB with mobilization TECHNIQUE: 2 views of the chest were acquired. COMPARISON: None. FINDINGS: Surgical changes and devices: None. Lungs and pleura: Mild diffuse interstitial prominence. No pleural effusions or pneumothorax. Mediastinum: Mediastinal contours are normal. Heart size is normal. Bones and chest wall: No suspicious bony abnormalities. Soft tissues appear unremarkable. IMPRESSION: Mild diffuse interstitial prominence. Dictated by: Eliot Smith M.D. on 06/18/2020 at 14:25 Approved by: Eliot Smith M.D. on 06/18/2020 at 14:26
--- NOTE | 2020-06-18 14:33 | PM.CN ---
History of Present Illness Consult details Date Patient Seen: 06/18/20 Time Patient Seen: 16:42 Chief complaint: RT TKA Rev Reason for consult: hypoxia Requesting provider: Marion Lebron Narrative: Alvin Donovan is a 65-year-old male with past medical history of type 2 diabetes on insulin therapy, hypertension, CKD stage IIIA with a baseline creatinine of around 1.3, carotid stenosis, hyperlipidemia, BPH with urinary retention status post TURP, and morbid obesity who was admitted yesterday for a right total knee revision/replacement secondary to continued pain after his prior surgery approximately a year ago. There was also thought that there may be a prior infection but his had negative blood cultures according to the documentation. He had been doing well after surgery but was noted to be slightly hypoxic into the low 80s when ambulatory. The patient denied shortness of breath, chest pain, nausea, vomiting, diaphoresis, abdominal pain. He feels slightly more short of breath when ambulating compared that usual, but this is usually limited by pain. He did note that his lower extremities were swollen a couple of days before surgery, but not a huge amount. It appears he has been on oxygen since admission, but was slightly more short of breath today. He does not use oxygen at home. He follows with a meals on wheels driver Dr. Rea and has been on various doses of lisinopril and lasix, adjusting frequently. Has issues with kidney problems when taking lisinopril per patient report. His blood sugar has also been slightly low today despite frequent correctional oral intake. On morning labs, his Cr was noted to be 2.52. Outpatient records show a Cr of 1.29 on 04/2020. He also has an elevated potassium at 5.9. EKG was performed would not show any evidence of ischemia or severely prominent T-waves, it appears similar to his outside tracing which is scanned into the chart. Chest x-ray showed a mild diffuse interstitial predominance, also not significantly changed compared to prior. ProBNP was added on to his morning labs which showed an indeterminate value of 179, although this can be falsely low in the setting of obesity. Meds Home Medications and Allergies Home Medications Medication Instructions Recorded Confirmed Type Lantus U-100 Insulin 120 unit SUBCUT QPM 02/13/20 06/17/20 History albuterol sulfate [ProAir HFA] 2 puff INHALATION QID PRN 02/13/20 06/17/20 History allopurinol 100 mg PO DAILY 02/13/20 06/17/20 History allopurinol 300 mg PO DAILY 02/13/20 06/17/20 History amlodipine 10 mg PO QPM 02/13/20 06/17/20 History atenolol 100 mg PO BID 02/13/20 06/17/20 History furosemide 40 mg PO BID 02/13/20 06/17/20 History lisinopril 30 mg PO DAILY 02/13/20 06/17/20 History metformin 1,000 mg PO BID 02/13/20 06/17/20 History omeprazole 20 mg PO BID 02/13/20 06/17/20 History oxycodone 5 mg PO Q4H PRN #40 tab 02/13/20 06/17/20 Rx oxycodone 10 mg PO Q6H PRN 02/13/20 06/17/20 History pramipexole 0.75 mg PO QPM 02/13/20 06/17/20 History simvastatin 20 mg PO BEDTIME 02/13/20 06/17/20 History terazosin 5 mg PO BEDTIME 02/13/20 06/17/20 History insulin lispro [Humalog KwikPen 0 - 40 unit SUBCUT TID PRN 06/11/20 06/17/20 History Insulin] magnesium chloride 128 mg PO BID 06/11/20 06/17/20 History testosterone cypionate 200 mg IM Q2W 06/11/20 06/17/20 History enoxaparin [Lovenox] 30 mg SUBCUT Q12H 9 Days #5.4 ml 06/18/20 Rx Allergies Allergy/AdvReac Type Severity Reaction Status Date / Time vancomycin AdvReac Pt thinks Verified 06/17/20 06:38 hypertension, he is unsure Review of Systems Review of Systems Narrative: All other systems reviewed with the patient and are negative unless otherwise stated. Exam Vital Signs (past 8 hours): - 06/18/20 07:39 06/18/20 08:07 06/18/20 09:21 Temperature 97.9 F Pulse Rate 71 71 71 Respiratory Rate 14 18 Blood Pressure 96/49 L 113/54 L Pulse Oximetry 95 92 06/18/20 11:00 Temperature 97.4 F L Pulse Rate 72 Respiratory Rate 13 Blood Pressure 109/45 L Pulse Oximetry 93 Oxygen Delivery Method Nasal Cannula Oxygen Flow Rate 3 Narrative Exam Narrative: GENERAL APPEARANCE: Well developed, well nourished, obese male, BMI 47.2, in no acute distress. Appears mildly uncomfortable due to pain. SKIN: Inspection of the skin reveals no rashes, ulcerations or petechiae. HEENT: Normocephalic atraumatic, extraocular muscles are intact, oropharynx is clear and mucous membranes are moist, neck is supple without adenopathy NECK: Supple and symmetric. There was no thyroid enlargement, and no tenderness, or masses were felt. CHEST: Normal AP diameter and normal contour without any kyphoscoliosis. LUNGS: Auscultation of the lungs revealed no wheezes, rhonchi, or rales. CARDIOVASCULAR: There was a regular rate and rhythm without any murmurs, gallops, rubs. Peripheral pulses were 2+ and symmetric. ABDOMEN: Soft and nontender with normal bowel sounds. MUSCULOSKELETAL: Bilateral lower extremity swelling, right slightly greater than left, although recent surgery with dressings clear dry and intact on the right knee. EXTREMITIES: No cyanosis, clubbing. NEUROLOGIC: Alert and oriented x 3. Normal affect. No gross focal deficits. Objective Labs Result Diagrams: 06/18/20 06:36 06/18/20 08:28 Labs: Laboratory Results - last 24 hr 06/18/20 06/18/20 06:36 08:28 Hgb 12.4 L Hct 38.2 L Sodium 131 L Potassium 5.9 H Chloride 100 Carbon Dioxide 29 BUN 51 H Creatinine 2.52 H Estimated GFR 25.9 L BUN/Creatinine Ratio 20.2 Glucose 125 H Calcium 7.9 L Assessment & Plan Assessment & Plan narrative: Alvin Donovan is a 65-year-old male with past medical history of type 2 diabetes on insulin therapy, hypertension, CKD stage IIIA with a baseline creatinine of around 1.3, carotid stenosis, hyperlipidemia, BPH with urinary retention status post TURP, and morbid obesity who was admitted yesterday for a right total knee revision/replacement secondary to continued pain after his prior surgery approximately a year ago. Medicine was consulted for acute hypoxic respiratory failure and SAULO today. 1. Acute hypoxemic respiratory failure - since surgery patient has required supplemental oxygen. O2 dropped to 81% with ambulation today. Continue supplemental oxygen, titrate to O2 >90% but no greater than 96%. -chest x-ray with a diffuse interstitial predominance, unable to perform CT angiogram given elevated creatinine at this time. DVT study was performed which did show a right lower extremity DVT. Will start on anticoagulation with heparin infusion at this time given his renal function. If his renal function improves he will likely be able to switch to oral therapy. Given patient's history of swelling prior to surgery and recent decrease in activity, it is possible DVT was present prior to surgery. -other possibilities include congestive heart failure, his proBNP is mildly elevated 179. -No wheezing on exam, reports prior history of asthma as a child, but do not suspect COPD exacerbation. Smoking history is 8 pack years, quit many years ago. -check TTE to evaluate for possible heart failure, likely diastolic. - will check a troponin to rule out any ACS, although this is unlikely given symptoms. - he very well may have a component of obesity hypoventilation syndrome given his size and may 2. Acute kidney injury on chronic kidney disease stage III. Unclear if present on admission. With hyperkalemia. - unclear how acute this rise is, may be related to hypotension reported after surgery, decreased PO intake in setting of lisinopril and metormin. - Will hold lasix at this time given no gross volume overload, pending TTE, and hold lisinopril, NSAID, and metformin. Will lower amlodipine to 5 mg. He is ordered for fluids at this time. Will continue fluids and continue to follow Creatinine. - potassium 5.9, likely chronically so and related to lisinopril and acute renal failure. Will continue to monitor. No evidence of changes on EKG. Will start telemetery. 3. Right lower extremity DVT, acute - start heparin gtt given current kidney function for now. Hopefully kidney function will improve and he can be started on an oral anticoagulant or Lovenox therapy. Will need either apixaban or warfarin as an outpatient. 4. Type II diabetes - suspect slight hypoglycemia today is related to worsened renal function at this time. Will decrease lantus to half dose 60 Units tonight. - continue oral replacement as tolerated, d50 pushes as needed. Will hold sliding scale for now until sugars improve. Hold metformin as noted above. 5. HTN, chronic - hold lisinopril, will decrease amlodipine and hold lasix. Continue to monitor. 6. BPH, chronic, s/p TURP. - reportedly with history of post- operative urinary retention. Allen in place. Likely trial of void as an outpatient. Renal ultrasound pending. 7. s/p R total knee - continue management per primary, pain control per primary. Did discuss anticoagulation with heparin gtt for now. Code: Full as discussed with the patient. COVID-19 COVID-19 status: Negative
--- NOTE | 2020-06-18 14:37 | DI.US.S_ITS ---
PROCEDURE: US RENAL COMPLETE INDICATIONS: ACUTE KIDNEY INJURY TECHNIQUE: Real-time scanning was performed of the kidneys and bladder, with image documentation. COMPARISON: None. FINDINGS: Kidneys: Kidneys are normal in size. Right kidney measures 14.1 cm long; left kidney measures 13.9 cm long. Right renal cortical thickness is 1.9 cm; left renal cortical thickness is 1.9 cm. Renal cortical echotexture is normal. No hydronephrosis or nephrolithiasis. No suspicious solid mass lesions. Bladder: Bladder assessment could not be performed due to Allen catheter in place emptying the bladder lumen. Miscellaneous: No free pelvic fluid. IMPRESSION: No hydronephrosis or nephrolithiasis seen. Normal renal size and echotexture. Bladder empty by Allen catheter. Dictated by: Santana Palma M.D. on 06/18/2020 at 17:14 Approved by: Santana Palma M.D. on 06/18/2020 at 17:17
[2020-06-18 14:55] LABS: NT-proBNP (BNP-Adult 18+) 179 pg/mL (<125)
--- NOTE | 2020-06-18 14:58 | CM.DANOTE ---
DCP/Assessment: Reviewed chart. Patient is a 65yr old male admitted to [facility] for right TKA revision performed on 06-17-[address] Uribe. PCP listed is Dr. Ellen Del Toro. Primary payor is 1)Medicare 2)[facility]. Patient expected to d/c this AM however, had BP issues and SOB today therefore, d/c cancelled and hospitalist consulted. QUARRYING MANAGER attempted to see patient this afternoon. At time of visit patient being seen by hospitalist and EKG ordered. Therefore, touched base with RN. Per RN, patient will d/c home with anticipated d/c planning needs when stable. Patient reports to RN that he has all needed DME and outpatient therapy scheduled. P: Anticipate home when medically stable. No identified needs at this time. Patient ambulating in hallway. LA Sharma Discharge Planning/Care Management CM Discharge Assessment Start: 06/18/20 14:30 Freq: Status: Active Protocol: Document 06/18/20 14:31 KJS (Rec: 06/18/20 14:58 KJS [id number]) Discharge Planning Assessment Assigned Buttonhole Maker Hand LA Sharma Contact Information Regla Donovan (spouse) ph# Advance Directives? No Advance Directives on File No History Provided By Medical Record Prior Living Arrangements House Household Members spouse,family Type of transporation used prior to Drives own vehicle admit Independent with ADL's Yes Is patient alert and oriented? Yes Caregiver for Another No DME Already Rented / Owned FWW / Walker Patient/Family Preference OP PT Therapy Barriers to Discharge No Discharge Plan Home Whiteboard Updated in Patient Room with No name and ext. # of Buttonhole Maker Hand Review Status In Process Next Review Type Continued Stay Review Pre-Anesthesia Assessment Start: 06/11/20 08:52 Freq: Status: Complete Protocol: Document 06/11/20 08:52 CAB (Rec: 06/11/20 09:51 CAB [id number]) Pre-Anesthesia Assessment Preferred Name Tja Patient Information Reviewed Via Phone Assessment Assessment Completed With Patient Comment Labs/EKG done per pt, not available, COVID screen @ Primary Care Provider Javi Del Toro Seen Specialist in Last 12 Months Yes Specialist Seen Automobile Parts Assembler,Orthopedist,Sleep specialist,Urologist,Other Comment Vascular-Outside records from PCP, specialist scanned in Primary Language Chinese Arabic Linguist Required No Height 185.42 cm Weight 159.211 kg Body Mass Index (BMI) 46.3 Hearing Ability Normal Visual Assist Magnifying Glass Dentition Type Full- Upper & Lower Barriers to Learning None Hx Anesthesia Reactions Yes: Over sedation, Narcan required s/p TKA 2008 Hx Family Anesthesia Reaction Yes: My mother after anesthesia, never woke up Hx Malignant Hyperthermia No Hx Blood Transfusions No Anesthesia Review Requested Yes: reviewed prior to scheduling alcohol intake current alcohol intake frequency holidays/special occasions only Smoking Status Former smoker Tobacco type cigarettes how long ago did patient quit smoking Quit 1996 Substance Use Type does not use Pain Present Pain Reported Musculoskeletal Symptoms Abnormal Gait,Back Pain, Difficulty Walking,Joint Pain, Neck Pain History of Falling (Recent or History of Yes ) Patient is completely paralyzed or No completely immobile Prosthesis or Orthotic Device Cane,Front Wheel Walker Mental Status Oriented to own ability Is patient on oxygen? Yes: 2L02 w/CPAP Does patient have CAAL/SOB No Hx Sleep Apnea Yes CPAP/BIPAP use prescribed and used routinely Will Bring CPAP/BIPAP DOS Yes Currently Taking a Beta Luz Maria Yes: Atenolol Can You Climb a Flight of Stairs Without Yes SOB Hx Chest Pain No Hx SOB Yes Hx Syncope or Dizziness No Anti-Coagulant Therapy No Has a Dye Lab Technician No Cardiac Testing No Hx Pacemaker/ICD No Pacemaker Rep Required? No Cardiac Clearance Received Not Applicable Diet Type At Home Regular dysphagia No Gastrointestinal Symptoms Constipation,Diarrhea,Reflux Bladder Pattern Urgency Urinary Catheter Present No Hx Urinary Self Catheterization No Diabetes Yes HgbA1C 6.6 Date 04/19/20 Hx Drug Resistant Organism No Presence of External or Internal Medical Yes: Right knee Devices Have you had any close contact with No someone diagnosed with COVID-19? Marital Status Lives With spouse,children Prior Living Arrangements House Number of Floors (Floors) Two Floors Support System Child/Children,Spouse Does the Patient Have Assistance After Yes Surgery Patient Discharge Plan Description Return Home Comment Pt advised 1-2 day length of stay per surgeon Feels Safe in Current Environment Yes Been Physically Hurt or Threatened By a No Person in Current Environment Do you have thoughts of harming yourself None or others? Are you currently considering suicide? No Do you have a plan to hurt yourself or No Plan others? Do You Have Any Spiritual Beliefs That No May Affect Your HC Choices? Do You Have Any Cultural Practices That No May Affect Your HC Choices? Comment Religious Who Can We Speak to About Patient's Care Family, friends Identifying Code for Release of Patient Declines to issue Information Health Care Proxy/Next of Kin Regla () Health Care Proxy Emergency Contact Name Regla () Emergency Contact Advance Directives? Yes Advance Directives on File No Requested Patient Bring Advanced Yes Directives DOS Power of Silviculture Forester Yes Power of Silviculture Forester Name Regla (darrius) Power of Silviculture Forester PAC Instructions Bring CPAP/BIPAP,Diabetes instructions,Durable medical equipment,Medications to take/ avoid,Nasal antibiotic,No ETOH /petroleum product on skin DOS ,NPO,Pre-surgical wash,Sensory aids,Sturdy shoes/comfortable clothes,Do not bring valuables and remove jewelry
--- NOTE | 2020-06-18 14:59 | DI.US.S_ITS ---
PROCEDURE: US PERIPH VENOUS LOW EXTREM BI INDICATIONS: ?DEEP VEIN THROMBOSIS TECHNIQUE: Real-time imaging, as well as color and pulse Doppler interrogation, were performed of the deep veins of both legs from the inguinal ligament to the popliteal fossa. COMPARISON: None. FINDINGS: Right: There is thrombosis of the distal thigh portion of the superficial femoral vein. The mid and proximal superficial femoral vein, as well as the popliteal vein and common femoral vein and greater saphenous vein are patent. Left: The common femoral, femoral and popliteal veins are normally compressible, and free of intraluminal thrombus. Color and pulse Doppler demonstrate normal phasic intravascular flow. There is normal augmentation response to distal compression maneuver. IMPRESSION: 1. Focal DVT, distal thigh portion of right superficial femoral vein. 2. No evidence of DVT, left leg. Dictated by: Eliot Smith M.D. on 06/18/2020 at 17:03 Approved by: Eliot Smith M.D. on 06/18/2020 at 17:04
--- NOTE | 2020-06-18 17:12 | DI.ECHO.S_ITS ---
[facility]---------+ [facility] +---------+ : : [address] : : : : [id number] : : : : Phone: [phone] Echocardiogram Report + + :Name: JUSTIN SOMMERS Study Date: 06/19/2020 Height: 73 in : :[facility] Weight: 357 lb : : Gender: Male BSA: 2.8 m2 : :: 1955 Age: 65 yrs BP: 131/74 mmHg: :Reason For Study: DYSPNEA ON EXERTION, DVT : :Ordering Physician: JUAN J, : :LORI NORWOOD Performed By: Amber Farias : :Referring: LORI ARITA : + + Interpretation Summary The left ventricle is mild-moderately dilated. Left ventricular systolic function appears normal without focal wall motion abnormalities. The ejection fraction is estimated to be 65-70%. Diastolic parameters suggest probable normal left ventricular diastolic function and normal filling pressures. The right ventricle is at the upper limits of normal in size. The right ventricular systolic function is normal. Pulmonary artery pressures cannot be estimated because of the lack of a measurable TR jet velocity but the IVC suggests a CVP of around 8 mmHg. The left atrium is moderately dilated. The right atrium is mildly dilated. There is no significant valvular heart disease. The ascending aorta is mildly enlarged. Procedure: A two-dimensional transthoracic echocardiogram with color flow and Doppler was performed. The study quality was technically adequate. There is no prior echocardiogram noted for this patient. The patient was in sinus rhythm with heart rates between 71-81 bpm during the exam. Left Ventricle: The left ventricle is mild-moderately dilated. Left ventricular wall thickness is mildly increased. The LVOT velocity is 1.48 m/s. Left ventricular systolic function appears normal without focal wall motion abnormalities. The ejection fraction is estimated to be 65-70%. Diastolic parameters suggest probable normal left ventricular diastolic function and normal filling pressures. Right Ventricle: The right ventricle is at the upper limits of normal in size. The right ventricular systolic function is normal. Atria: The left atrium is moderately dilated. The right atrium is mildly dilated. There is no Doppler evidence for an interatrial shunt. Mitral Valve: The mitral valve is normal in structure and function. There is trace mitral regurgitation. Aortic Valve: The aortic valve is not well visualized. There is no aortic valve stenosis. No aortic regurgitation is present. Tricuspid Valve: The tricuspid valve is not well visualized, but is grossly normal. Pulmonary artery pressures cannot be estimated because of the lack of a measurable TR jet velocity but the IVC suggests a CVP of around 8 mmHg. There is trace tricuspid regurgitation. Pulmonic Valve: The pulmonic valve is not well visualized. There is no significant valvular heart disease. Great Vessels: The aortic root is normal size. The ascending aorta is mildly enlarged. The IVC is dilated (diameter is greater than 2.1 cm) yet it collapses greater than 50% with a sniff. This suggests a right atrial pressure of 8 mm Hg. Pericardium/ Pleura There is no pericardial effusion. There is no pleural effusion. MMode/2D Measurements & Calculations LVIDd: 6.3 cm LVOT diam: 2.5 cm LVIDs: 4.2 cm Ao root diam: 3.4 cm FS: 32.6 % asc Aorta Diam: 3.9 cm EPSS: 1.2 cm IVSd: 1.0 cm LVPWd: 1.2 cm LV cortes. diameter/BSA (cm/m^2): 2.3 LV sys. diameter/BSA (cm/m^2): 1.5 LA A2 area: 31.8 cm2 RA long axis: 6.2 cm LA A4 area: 27.4 cm2 RA area: 26.9 cm2 LA length (vol): 6.3 cm RA vol: 99.0 ml LA vol: 117.9 ml RA : 36.0 ml/m2 LA vol index: 42.8 ml/m2 IVC diam: 2.9 cm RVD1 (basal): 4.2 cm TAPSE: 2.9 cm Doppler Measurements & Calculations Ao V2 max: 172.4 cm/sec LVOT Max Frederic: 147.9 cm/sec Ao V2 mean: 111.8 cm/sec LV V1 max P.8 mmHg Ao max P.9 mmHg LV V1 VTI: 26.5 cm Ao mean P.6 mmHg RAMESH(I,D): 4.1 cm2 Ao V2 VTI: 31.1 cm RAMESH(V,D): 4.1 cm2 sev ratio: 0.85 RAMESH indexed to BSA (cm^2/m^2): 1.5 MV E max frederic: 127.9 cm/sec PA V2 max: 76.8 cm/sec MV A max frederic: 75.9 cm/sec PA V2 mean: 51.5 cm/sec MV E/A: 1.7 PA mean P.2 mmHg Med Peak E' Frederic: 9.6 cm/sec PA pr(Accel): 10.5 mmHg E/E' med: 13.3 Lat Peak E' Frederic: 12.6 cm/sec E/E' lat: 10.2 E/e' average: 11.8 MV dec time: 0.15 sec SV(LVOT): 127.7 ml Reading Physician:03:30 PM
--- NOTE | 2020-06-18 18:08 | PC.NURSE ---
Addendum entered by Fanny Kim R.N. 06/18/20 21:33: Pt started on heparin gtt as per orders. CBG HS = 92. Pt declining insulin at this time. NISH dsg remains CDI Stable post op course. Call light w/in reach, pt calls appropriately for needs. Continue w/plan of care. Original Note: Pt completed ultrasound, Lungs shallow at bases, SpO2 94% 2L NISH dsg to right knee CDI. Awaiting lab results to begin heparin gtt. CBG = 88 at AC. RFA Med @ 1750 w/oxycodone for discomfort. Call light w/in reach, pt calls appropriately for needs.
[2020-06-18 18:14] LABS: Prothrombin Time 11.9 SECONDS (10.1-12.7)
[2020-06-18 18:16] LABS: PTT Partial Thromboplastin Tim 31 SECONDS (26.4-36.2)
[2020-06-18 18:17] LABS: BUN Creatinine Ratio 21.9 (6-22); Blood Urea Nitrogen 54 mg/dL (9-20); Carbon Dioxide 28 mmol/L (22-32); Chloride 100 mmol/L (98-107); Estimated Glomerular Filt Rate 26.5 mL/min (>60); Glucose 79 mg/dL (80-110); HEMOLYSIS < 15 (0-50); Sodium 131 mmol/L (137-145)
[2020-06-18 18:21] LABS: Potassium 5.5 mmol/L (3.4-5.1)
[2020-06-18 18:46] LABS: Troponin I < 0.012 ng/mL (0.01-0.034)
[2020-06-18] MEDS: HEPARIN 5,000 UNIT/ML VIAL 7500 UNIT IV (18:46)
[2020-06-18] MEDS: HEPARIN DRIP 25,000 UNIT/500 ML IV.SOLN 24 UNIT IV (18:48)
[2020-06-18] MEDS: AMLODIPINE 5 MG TABLET 10 MG PO (20:53)
[2020-06-18] MEDS: SIMVASTATIN 20 MG TABLET PO (20:54)
[2020-06-18] MEDS: PRAMIPEXOLE 0.25 MG TABLET 0.75 MG PO (20:54)
[2020-06-18] MEDS: TERAZOSIN 5 MG CAPSULE PO (21:14)
[2020-06-19] VITALS (8 sets, daily range): BP systolic 140–153; BP diastolic 64–72; PULSE 84–92; RESP 16–18; TEMP 36.8–37.6; O2SAT 92–97
[2020-06-19 00:12] LABS: PTT Partial Thromboplastin Tim 46 SECONDS (26.4-36.2)
[2020-06-19] MEDS: HEPARIN 5,000 UNIT/ML VIAL 5000 UNIT IV (01:13)
[2020-06-19] MEDS: OXYCODONE IR 10 MG TABLET PO ×4 (04:03→14:54)
--- NOTE | 2020-06-19 06:54 | PM.PNPO.1 ---
Subjective Subjective Date Patient Seen: 06/19/20 Time Patient Seen: 06:54 Interval history: The patient reports that he has some knee pain but is generally comfortable. His breathing is improving. He was about to go home yesterday when he reported the acute onset of shortness of breath. Exam Vital Signs (past 8 hours): - 06/18/20 23:16 06/19/20 00:00 06/19/20 03:22 Temperature 99.4 F 99.7 F H Pulse Rate 85 84 84 Respiratory Rate 18 16 16 Blood Pressure 145/64 H 150/65 H Pulse Oximetry 95 94 92 Oxygen Delivery Method CPAP Oxygen Flow Rate 3 Narrative Exam Narrative: Right knee wound is dressed with no drainage on the bandage. Calf is slightly firm but not tender. Light touch and motion are intact in the right lower extremity. Objective Labs Result Diagrams: 06/18/20 06:36 06/18/20 17:58 Labs: Laboratory Results - last 24 hr 06/18/20 06/18/20 06/18/20 08:28 14:20 17:58 PT 11.9 INR 1.0 APTT 31 Sodium 131 L Potassium 5.9 H Chloride 100 Carbon Dioxide 29 BUN 51 H Creatinine 2.52 H Estimated GFR 25.9 L BUN/Creatinine Ratio 20.2 Glucose 125 H Calcium 7.9 L Troponin I NT-Pro-B Natriuret Pep 179 H 06/18/20 06/18/20 06/18/20 17:58 17:58 23:59 PT INR APTT 46 H D Sodium 131 L Potassium 5.5 H Chloride 100 Carbon Dioxide 28 BUN 54 H Creatinine 2.47 H Estimated GFR 26.5 L BUN/Creatinine Ratio 21.9 Glucose 79 L Calcium 8.0 L Troponin I < 0.012 NT-Pro-B Natriuret Pep COUNTS INCLUDE 234 BEDS AT THE [facility] Medical History SAULO (acute kidney injury) Asthma Bladder cancer (~05/2010) BPH w urinary obs/LUTS CKD stage G3a/A3, GFR 45-59 and albumin creatinine ratio >300 mg/g Diabetes mellitus, type II GERD (gastroesophageal reflux disease) Gout HLD (hyperlipidemia) HTN (hypertension) Hyperkalemia Hypoxemia JESSIE on CPAP PVD (peripheral vascular disease) Right-sided carotid artery disease RLS (restless legs syndrome) TIA (transient ischemic attack) Surgical History History of arthroplasty of right knee (~2008) History of arthroscopy of left shoulder (02/13/20) History of bladder surgery History of bone graft History of lumbar spinal fusion Hx of appendectomy Hx of arthroscopy of left knee Hx of arthroscopy of right knee Hx of cervical spine surgery Hx of eye surgery Hx of foot surgery Hx of hernia repair Hx of sinus surgery Hx of tonsillectomy S/P TURP Social History household members: spouse and family Smoking Status: Former smoker alcohol intake: current Assessment & Plan Post-op Postoperative Procedures: Procedures Operation Date: 06/17/20 07:45 Actual Procedures Side Surgeon p Total Knee Arthroplasty Revision Right Vineet Uribe MD Postoperative day: 2 Postoperative status: doing well, anemia and other (Deep venous thrombosis, possible pulmonary embolism) Postoperative status narrative: The patient is improving postoperatively. From the standpoint of his total knee he has ambulated well. He is having the expected postoperative pain but nothing out of proportion to the surgery. His cultures from his revision are no growth to date. He does have a mild post hemorrhagic anemia which does not require further treatment. It appears that he has a deep venous thrombosis and potentially a pulmonary embolism leading to hypoxia. Postoperative plan: routine post-op care, ambulate and other (Anticoagulation per the hospitalist service.) Postoperative plan narrative: He will continue with physical therapy. We will follow his cultures. His anticoagulation is being managed by the hospitalist service. Once he is stable on anticoagulants we can discharge him. I anticipate this may be tomorrow. Time Spent With Patient Time with patient: less than 15 minutes Quality VTE Deep Vein Thrombosis/Pulmonary Embolism Present on Admission: No
[2020-06-19] MEDS: hydrOXYzine pamoate 25 MG CAPSULE PO ×2 (07:09→12:48)
[2020-06-19 08:20] LABS: Add Manual Diff / Slide Review NO; Basophils Absolute Auto 0 /uL (0-100); Basophils Percent Auto 0.3 % (0-2); Eosinophils Absolute Auto 800 /uL (0-450); Eosinophils Percent Auto 7.2 % (2-4); Hematocrit 38.7 % (41-53); Hemoglobin 12.9 g/dL (13.5-17.5); Lymphocytes Absolute Auto 700 /uL (1100-4500); Lymphocytes Percent Auto 6.7 % (25-40); Mean Corpuscular HGB Conc 33.4 % (30-36); Mean Corpuscular Hemoglobin 31.1 PG (26-34); Mean Corpuscular Volume 93.1 fL (80-100); Monocytes Absolute Auto 1300 /uL (0-900); Monocytes Percent Auto 11.5 % (3-14); Neutrophils Absolute Auto 8200 /uL (1500-7000); Neutrophils Percent Auto 74.3 % (50-75); Platelet Count 152 X10^3/uL (150-400); Red Blood Cell Count 4.15 X10^6/uL (4.5-5.9); Red Cell Distribution Width 14.9 % (11.6-14.8)
[2020-06-19 08:24] LABS: PTT Partial Thromboplastin Tim 44 SECONDS (26.4-36.2)
[2020-06-19 08:29] LABS: Alanine Aminotransferase 16 IU/L (<50); Albumin 3.6 g/dL (3.5-5.0); Albumin Globulin Ratio 1.2 (1.0-2.8); Alkaline Phosphatase 71 U/L (38-126); Aspartate Aminotransferase 44 IU/L (17-59); BUN Creatinine Ratio 25.5 (6-22); Bilirubin Total 0.5 mg/dL (0.2-1.3); Bilirubin Unconjugated 0.5 mg/dL (0.0-1.1); Blood Urea Nitrogen 47 mg/dL (9-20); Calcium 8.8 mg/dL (8.4-10.2); Carbon Dioxide 28 mmol/L (22-32); Chloride 100 mmol/L (98-107); Estimated Glomerular Filt Rate 37.2 mL/min (>60); Glucose 160 mg/dL (80-110); HEMOLYSIS < 15 (0-50); Magnesium 2.2 mg/dL (1.6-2.3); Sodium 133 mmol/L (137-145); Total Protein 6.6 g/dL (6.3-8.2)
[2020-06-19 08:32] LABS: Potassium 5.6 mmol/L (3.4-5.1)
[2020-06-19] MEDS: MAGNESIUM CHLORIDE 64 MG TABLET 128 MG PO ×2 (09:58→21:30)
[2020-06-19] MEDS: DOCUSATE 100 MG CAPSULE PO ×2 (09:58→21:14)
[2020-06-19] MEDS: ACETAMINOPHEN 325 MG TABLET 650 MG PO ×3 (09:58→21:14)
[2020-06-19] MEDS: PANTOPRAZOLE 20 MG TABLET PO ×2 (09:59→21:15)
[2020-06-19] MEDS: APIXABAN 5 MG TABLET PO ×2 (09:59→21:14)
[2020-06-19] MEDS: INSULIN ASPART 100 UNIT/ML INSULN PEN SUBCUT ×3 (10:03→16:58)
[2020-06-19] MEDS: allopurinoL 300 MG TABLET PO (10:03)
[2020-06-19] MEDS: atenoloL 50 MG TABLET 100 MG PO ×2 (10:10→21:21)
[2020-06-19] MEDS: allopurinoL 100 MG TABLET PO (10:11)
[2020-06-19] MEDS: SODIUM CHLORIDE 0.9% FLUSH 10 ML IV ×2 (10:16→21:16)
--- NOTE | 2020-06-19 11:04 | PT.IPTN ---
Current Diagnoses Broken internal right knee prosthesis, initial encounter (06/17/20) Surgery Performed Operation Date: 06/17/20 07:45 Actual Procedures p Total Knee Arthroplasty Revision (Right) - Vineet Uribe MD Physical Therapy Treatment Note M2 PT-IP Current Condition Start: 06/17/20 12:50 Freq: NEEDED Status: Active Protocol: Document 06/17/20 14:57 AW (Rec: 06/17/20 15:27 AW [id number]) Physical Therapy Current Condition Current Condition Evaluation Date 06/17/20 Treatment Diagnosis R TKA revision; difficulty in walking Onset Date 06/17/20 Weight Bearing Status Weight Bearing Status Weight Bear as Tolerated M3 PT-IP Subjective Start: 06/17/20 12:50 Freq: NEEDED Status: Active Protocol: Document 06/19/20 10:21 SP (Rec: 06/19/20 12:46 SP [id number]) Subjective Physical Therapy Visit Type Type Treatment Note Visit Start Time 10:21 Visit Stop Time 11:04 Total Visit Minutes 43 Number of CREAM SEPARATOR OPERATOR Visits 1 Physical Therapy Visit Comments Patient Comments pt agreeable to working with therapy. Patient Goals Home with assist of spouse and family members. Therapy Pain Assessment Pain When Pain Assessed At Rest Pain Present Pain Present Pain Reported Location right knee Intensity 12 Scale Used Numeric (0 - 10) Description Aching,Dull,Pressure,Spasm, With Movement Pain Behaviors Facial Grimacing,Guarding, Holding Area,Moaning, Restlessness,Wincing Pain Management Techniques Distraction,Re-positioning, Timing of Activity with Medications M4 PT-IP Mobility and Gait Start: 06/17/20 12:50 Freq: NEEDED Status: Active Protocol: Document 06/19/20 10:21 SP (Rec: 06/19/20 12:46 SP [id number]) PT-Bed Mobility Assessment Supine to Sit Supine to Sit Contact Guard Assistance,Head of Bed Elevated,Bedrails Scooting Scooting to Edge of Bed Contact Guard Assistance, Minimal Assistance Scooting Up and Down in Bed Standby Assistance PT-Transfer Assessment Sit to and From Stand Sit to and from Stand Contact Guard Assistance, Minimal Assistance,Use of Upper Extremities Equipment Transfer Assistive Device Gait Belt,Front Wheeled Walker Orthotic/Prosthetic Devices or Brace: No Transfers Transfer Destination Chair Transfer Technique pt ambulated using FWW Transfer Ability Level of Assist Contact Guard Assistance,Use of Upper Extremities Comments Mobility Comments Pt was elevated approx 30 deg in bed with use of trapeze and bed rail as needed to scoot up in bed. Pt stated is getting a bed that elevates before going home but will not have a trapeze but requires for now to self mobilize to scoot self up in bed and supine>sitting, CGA. Pt required CG- min A for RLE support and use of gait belt for positioning to EOB, CGA for sup>sit and scoot to EOB Min A with use of bed pad while patient BUe WB on bed, multiple stop restst for tiring recovery. Sit> stand at R EOB as side will get off at home. CG- Min A with cuing for pushing from EOB and upright posture to stand and quad facilitation knee ext using FWW for support. Pt returned to sitting Min A intially with cuing for reaching back, required adjustment of lowering 2 notches fWW, to high. Sit> stand CGA good BUE pushing from bed and RLE out in front postioned. static standing CGA with education on WBAT, ambulated around end of bed to chair approx 15 ft step to gait with decrease WB RLE and heavy BUE WB on FWW. CREAM SEPARATOR OPERATOR provided CGA and managed IV pole. Pt SPT and Min A for slow descent into chair. CREAM SEPARATOR OPERATOR recognized chair to small for pt's tall stature and commented will get a chair with increase depth space before tx over. Sit> stand ambulated further distance into hallway with slight improvement with R knee flexion and heel toe quality gait phases as distance progressed with required Mod cuing. PT returned to his room chair approx 120 ft total with CGA with BUE slow descent into chair. RESUME WRITER in room changing bedding and assisted with change of chairs and stated will disinfect chair before leave the room. CREAM SEPARATOR OPERATOR requested attention to catheter emptying via RESUME WRITER with verbal confirmation and complete before CREAM SEPARATOR OPERATOR left. Pt had BLE elevated in chair with call light and all needs in reach. CREAM SEPARATOR OPERATOR recommended to RESUME WRITER and patient that continue to mobilize in room if requests between PT tx for bottom skin integrity but with safety knowing + DVT R thigh. Gait Assessment Gait Gait Assistance Required: Contact Guard Assist Distance (Feet) 120 Able to Maintain Weight Bearing Status Yes During Gait Assistive Devices Assistive Device Gait Belt,Front Wheeled Walker Orthotic/Prosthetic Devices or Brace: No Gait Deviations General Gait Pattern Antalgic,Decreased Stride Length,Festinating,Step-to Gait,Wide Based Gait Factors Limiting Gait Function Factors Limiting Gait Function Decreased Activity Tolerance, Decreased Strength,Limited Range of Motion,Pain,Poor Balance,Poor Safety Awareness Comments Gait Comments See mobility comments for details. Stair Climbing Assessment Comments Stair Climbing Comments Did not assess this tx, pt declined due to decreased strength and activity tolerance, potentially next tx reassess if patient willing. PT-Balance Assessment Sitting Balance and Reactions Static Sitting Balance Ability Good Dynamic Sitting Balance Ability Good Standing Balance and Reactions Static Standing Balance Ability Good Dynamic Standing Balance Ability Fair Device Used FWW M5 PT-IP Objective Assessments Start: 06/17/20 12:50 Freq: NEEDED Status: Active Protocol: Document 06/17/20 14:57 AW (Rec: 06/17/20 16:49 AW [id number]) Orientation Orientation/Cognition Level of Alertness Alert Orientation Name,Age,Birthday,Month,Date, Year,Day of Week,Place, Situation Language Function Ability No Deficits Noted Safety Awareness Understands Safety Issues Memory Description No Deficits Noted Gross Range of Motion Lower Extremity ROM Assessment Right Impaired Strength Lower Extremity Strength Assessment Right Impaired Hip 4/5 Knee 3+/5 Ankle 4+/5 Comments Strength Comments LLE grossly 5/5 Coordination Assessment Gross Coordination Gross Coordination WNL Sensation Assessment Sensation Gross Sensation WNL Comments Sensation Comments Pt denied numbness in BLE Muscle Tone Muscle Tone WNL Yes M6 PT-IP Treatment Start: 06/17/20 12:50 Freq: NEEDED Status: Active Protocol: Document 06/19/20 10:21 SP (Rec: 06/19/20 12:46 SP [id number]) Physical Therapy Treatment Education Education Provided Safety Other Treatments Other Treatment Performed Provided education on role of therapy, plan of care, weightbearing status, and safe use of FWW. M7 PT-IP Assessment and Plan Start: 06/17/20 12:50 Freq: NEEDED Status: Active Protocol: Document 06/19/20 10:21 SP (Rec: 06/19/20 12:46 SP [id number]) PT Summary Assessment and Plan Potential Rehabilitation Potential Good Status of Condition at Evaluation Evolving Summary Impairments Pain,ROM,Strength,Balance,Bed Mobility,Transfers,Gait, Activity Tolerance Progress Towards Goals Progressing Toward Goals,Slow Progress due to Pain,Slow Progress due to Activity Tolerance Assessment Summary Pt had decreased activitiy tolerance and WB due to pain in RLE this tx. Required seated rest breaks. Pt noted + SOB end of moblity and SaO2 completed by RESUME WRITER noted decrease SaO2 79-87 % on RA but improved in seconds to low 90s on 3L that nurse identified to use. CREAM SEPARATOR OPERATOR provided education in proper breathing and provided supplimental O2 Nurse stated is available PRN and has at home. pt requiring CG- Min during BM, CG- Karen with sit<> stand, CGA during gait mobility using FWW. pt stated that his spouse and family members will assist him at home but his brother who lives close by will also be able to assist him. pt may go home when medically stable. pt stated that he is set up for outpt PT. Goals Bed Mobility Goal Independent Transfer Goal Independent,Front Wheeled Walker Gait Goal Independent,Front Wheel Walker Gait Distance 200 Other Goals - up/down 7 steps with unilateral rail SBA Days to Meet Goals 2 Frequency of Treatment Frequency Of Treatment Twice a Day Treatment Plan Physical Therapy Treatment Plan Bed Mobility Training,Transfer Training,Gait Training, Therapeutic Exercise,Balance Retraining,Post Op Education, Discharge Planning,Hot or Cold Pack Other Recommendations and Next Treatment Stair mgt 7 stairs 1 HR and Focus SPC/VINEYARDIST, previous tx used B HR x6 stairs. Recommendations To Nursing Amount of Assist Needed 1 Person Assist Discharge Recommendations PT Discharge Recommendations Home with Assistance, Outpatient PT Transportation Needs at Discharge Private Vehicle
--- NOTE | 2020-06-19 14:48 | PT.IPTN ---
Current Diagnoses Broken internal right knee prosthesis, initial encounter (06/17/20) Surgery Performed Operation Date: 06/17/20 07:45 Actual Procedures p Total Knee Arthroplasty Revision (Right) - Vineet Uribe MD Physical Therapy Treatment Note M2 PT-IP Current Condition Start: 06/17/20 12:50 Freq: NEEDED Status: Active Protocol: Document 06/17/20 14:57 AW (Rec: 06/17/20 15:27 AW [id number]) Physical Therapy Current Condition Current Condition Evaluation Date 06/17/20 Treatment Diagnosis R TKA revision; difficulty in walking Onset Date 06/17/20 Weight Bearing Status Weight Bearing Status Weight Bear as Tolerated M3 PT-IP Subjective Start: 06/17/20 12:50 Freq: NEEDED Status: Active Protocol: Document 06/19/20 13:48 SP (Rec: 06/19/20 16:05 SP [id number]) Subjective Physical Therapy Visit Type Type Treatment Note Visit Start Time 13:48 Visit Stop Time 14:48 Total Visit Minutes 60 Number of PEDIATRIC ASSISTANT Visits 2 Physical Therapy Visit Comments Patient Comments Pt agreeable to working with therapy. Patient Goals Home with assist of spouse and family members. Therapy Pain Assessment Pain When Pain Assessed At Rest Pain Present Pain Present Pain Reported M4 PT-IP Mobility and Gait Start: 06/17/20 12:50 Freq: NEEDED Status: Active Protocol: Document 06/19/20 13:48 SP (Rec: 06/19/20 16:05 SP [id number]) PT-Bed Mobility Assessment Supine to Sit Supine to Sit Minimal Assistance,1 Person Assistance,Head of Bed Elevated,Bedrails Sit to Supine Sit to Supine Standby Assistance,Bedrails Scooting Scooting to Edge of Bed Minimal Assistance PT-Transfer Assessment Sit to and From Stand Sit to and from Stand Contact Guard Assistance, Minimal Assistance,Use of Upper Extremities Equipment Transfer Assistive Device Gait Belt,Front Wheeled Walker Orthotic/Prosthetic Devices or Brace: No Transfers Transfer Destination Bed,Wheelchair Transfer Technique pt ambulated using FWW Transfer Ability Level of Assist Contact Guard Assistance, Minimal Assistance,1 Person Assistance,Use of Upper Extremities Comments Mobility Comments Assessed pt's vitals when arrived supine in bed: BP 144/ 67 HR 78 and SaO2 87-89% on RA. PEDIATRIC ASSISTANT provided supplimental O2 via NC noted off laying at side on bed with cue for slow controlled breaths with elevation in SaO2 to low-mid 90s within seconds. Supine> sitting w/ elevated HOB use of bed rail Min A for RLE repositioning assist then scoot to EOB up over R side of bed lip Min A with use of bed pad for assist while supporting RLE. Sit> stand Min A with useu of LUE on FWW, RLE off bed and RLE out front. Pt ambulated using FWW around end of bed to chair inititally for endurance assessment with noted heave BUE WB and cuing for improved RLE WB, knee flexion and heel toe gait phases. PEDIATRIC ASSISTANT provided CGA and managed O2 tubing. SPT front of chair using FWW, cue x1 for fully backing up to chair and good hand placement BUE Karen for slow descent to chair. PEDIATRIC ASSISTANT acquired portable O2 tank and w/c and requested REFUGE MANAGER follow with w/c for gait into hallway, pt wanted to walk further into hallway approx 150 ft total with 4 stopped seated rest in w/c. PEDIATRIC ASSISTANT provided education on energy conservation, stand/ seated rests, proper breathing and amount of activity due to known DVT in RLE for safety, with verbal understanding by pt. Pt requested to return to bed when returned to room sit> supine Karen for RLE repositioning onto bed with use of bed rail. Pt stated It is challenged getting out of the hospital bed due to the 3 lip so has to use the bed rails and his bed at home is flat with plywood base under mattress but no rails so will be alot easier and I have family to help me. Pt had call light and all needs in reach before left. Gait Assessment Gait Gait Assistance Required: Contact Guard Assist Distance (Feet) 150 Able to Maintain Weight Bearing Status Yes During Gait Assistive Devices Assistive Device Gait Belt,Front Wheeled Walker Orthotic/Prosthetic Devices or Brace: No Gait Deviations General Gait Pattern Antalgic,Decreased Stride Length,Festinating,Step-to Gait,Wide Based Gait Factors Limiting Gait Function Factors Limiting Gait Function Decreased Activity Tolerance, Decreased Strength,Limited Range of Motion,Pain,Poor Balance,Poor Safety Awareness Comments Gait Comments See mobility comments for details. Stair Climbing Assessment Comments Stair Climbing Comments Did not assess this tx, pt declined due to decreased strength and activity tolerance, potentially next tx reassess if patient willing. PT-Balance Assessment Sitting Balance and Reactions Static Sitting Balance Ability Good Dynamic Sitting Balance Ability Good Standing Balance and Reactions Static Standing Balance Ability Good Dynamic Standing Balance Ability Fair Device Used FWW M5 PT-IP Objective Assessments Start: 06/17/20 12:50 Freq: NEEDED Status: Active Protocol: Document 06/17/20 14:57 AW (Rec: 06/17/20 16:49 AW [id number]) Orientation Orientation/Cognition Level of Alertness Alert Orientation Name,Age,Birthday,Month,Date, Year,Day of Week,Place, Situation Language Function Ability No Deficits Noted Safety Awareness Understands Safety Issues Memory Description No Deficits Noted Gross Range of Motion Lower Extremity ROM Assessment Right Impaired Strength Lower Extremity Strength Assessment Right Impaired Hip 4/5 Knee 3+/5 Ankle 4+/5 Comments Strength Comments LLE grossly 5/5 Coordination Assessment Gross Coordination Gross Coordination WNL Sensation Assessment Sensation Gross Sensation WNL Comments Sensation Comments Pt denied numbness in BLE Muscle Tone Muscle Tone WNL Yes M6 PT-IP Treatment Start: 06/17/20 12:50 Freq: NEEDED Status: Active Protocol: Document 06/19/20 13:48 SP (Rec: 06/19/20 16:05 SP [id number]) Physical Therapy Treatment Exercises Exercises Ankle Pumps,Gluteal Sets,Quad Sets,Heel Slides,Passive Knee Extension Hang Knee ROM Measurement approx 80 deg off EOB hang, heel slide approx 20 deg fl Education Education Provided Weight Bearing Status,Safety Other Treatments Other Treatment Performed Education on proper breathing for safety O2 saturation, rest breaks for tiring recovery, energy conservation and awareness of activity tolerance and safety with current DVT of RLE. M7 PT-IP Assessment and Plan Start: 06/17/20 12:50 Freq: NEEDED Status: Active Protocol: Document 06/19/20 13:48 SP (Rec: 06/19/20 16:05 SP [id number]) PT Summary Assessment and Plan Potential Rehabilitation Potential Good Status of Condition at Evaluation Evolving Summary Impairments Pain,ROM,Strength,Balance,Bed Mobility,Transfers,Gait, Activity Tolerance Progress Towards Goals Progressing Toward Goals,Slow Progress due to Pain,Slow Progress due to Activity Tolerance Assessment Summary Pt required CG- Min during all mobility using FWW, required seated rest breaks using w/c followed by REFUGE MANAGER and PEDIATRIC ASSISTANT assisted CG and portable O2 tank mgt on 3L for safety to improve SaO2 low 90s during gait, demonstrated decreased strength and activity tolerance but overall was able to walk further distance around nursing station approx 150 ft total. Pt improved in R knee flexion, heel toe patterning in hallway but required occasional cuing. Karen with sit<> stand, CGA during gait mobility using FWW . pt stated that his spouse and family members will assist him at home but his brother who lives close by will also be able to assist him. pt may go home when medically stable . pt stated that he is set up for outpt PT. Goals Bed Mobility Goal Independent Transfer Goal Independent,Front Wheeled Walker Gait Goal Independent,Front Wheel Walker Gait Distance 200 Other Goals - up/down 7 steps with unilateral rail SBA Days to Meet Goals 2 Frequency of Treatment Frequency Of Treatment Twice a Day Treatment Plan Physical Therapy Treatment Plan Bed Mobility Training,Transfer Training,Gait Training, Therapeutic Exercise,Balance Retraining,Post Op Education, Discharge Planning,Hot or Cold Pack Other Recommendations and Next Treatment Check vitals: O2, bed mobility Focus flat no rails, gait with SaO2 > 90 % supplimental O2 if needed. Recommendations To Nursing Amount of Assist Needed 1 Person Assist Discharge Recommendations PT Discharge Recommendations Home with Assistance, Outpatient PT Transportation Needs at Discharge Private Vehicle
--- NOTE | 2020-06-19 15:46 | P.PN_ITS ---
Subjective Subjective Date Patient Seen: 06/19/20 Time Patient Seen: 15:47 Interval history: Alvin Donovan is a 65-year-old male with past medical history of type 2 diabetes on insulin therapy, hypertension, CKD stage IIIA with a baseline creatinine of around 1.3, carotid stenosis, hyperlipidemia, BPH with urinary retention status post TURP, and morbid obesity who was admitted 06/17 for a right total knee revision/replacement secondary to continued pain. Medicine was consulted for exertional dyspnea and hypoxia, as well as an SAULO. His SAULO has improved with creatinine now down to 1.84. Given improvement in his renal function heparin infusion was stopped after transitioning him to oral apixaban at 5 mg b.i.d., avoided the 10 mg dosing given his renal function. He reports improvement his symptoms today. He had some more difficulty ambulating due to pain. Exam Vital Signs (past 8 hours): - 06/19/20 08:00 06/19/20 09:32 06/19/20 11:32 Temperature 98.3 F 98.2 F Pulse Rate 88 89 Respiratory Rate 18 17 Blood Pressure 144/70 H 140/68 Pulse Oximetry 95 95 95 Oxygen Delivery Method CPAP Oxygen Flow Rate 3 Narrative Exam Narrative: GENERAL APPEARANCE: Well developed, well nourished, obese male, BMI 47.2, in no acute distress. Appears mildly uncomfortable due to pain. SKIN: Inspection of the skin reveals no rashes, ulcerations or petechiae. HEENT: Normocephalic atraumatic, extraocular muscles are intact, oropharynx is clear and mucous membranes are moist, neck is supple without adenopathy NECK: Supple and symmetric. There was no thyroid enlargement, and no tenderness, or masses were felt. CHEST: Normal AP diameter and normal contour without any kyphoscoliosis. LUNGS: Auscultation of the lungs revealed no wheezes, rhonchi, or rales. CARDIOVASCULAR: There was a regular rate and rhythm without any murmurs, gallops, rubs. Peripheral pulses were 2+ and symmetric. ABDOMEN: Soft and nontender with normal bowel sounds. MUSCULOSKELETAL: Bilateral lower extremity swelling, right slightly greater than left, although recent surgery with dressings clear dry and intact on the right knee. EXTREMITIES: No cyanosis, clubbing. NEUROLOGIC: Alert and oriented x 3. Normal affect. No gross focal deficits. Objective Labs Result Diagrams: 06/19/20 08:05 06/19/20 08:05 Labs: Laboratory Results - last 24 hr 06/18/20 06/18/20 06/18/20 17:58 17:58 17:58 WBC RBC Hgb Hct MCV MCH MCHC RDW Plt Count Neut % (Auto) Lymph % (Auto) [place] % (Auto) Eos % (Auto) Baso % (Auto) Neut # (Auto) Lymph # (Auto) [place] # (Auto) Eos # (Auto) Baso # (Auto) PT 11.9 INR 1.0 APTT 31 Sodium 131 L Potassium 5.5 H Chloride 100 Carbon Dioxide 28 BUN 54 H Creatinine 2.47 H Estimated GFR 26.5 L BUN/Creatinine Ratio 21.9 Glucose 79 L Calcium 8.0 L Magnesium Total Bilirubin Conjugated Bilirubin Unconjugated Bilirubin AST ALT Alkaline Phosphatase Troponin I < 0.012 Total Protein Albumin Globulin Albumin/Globulin Ratio 06/18/20 06/19/20 06/19/20 23:59 08:05 08:05 WBC 11.0 RBC 4.15 L Hgb 12.9 L Hct 38.7 L MCV 93.1 MCH 31.1 MCHC 33.4 RDW 14.9 H Plt Count 152 Neut % (Auto) 74.3 Lymph % (Auto) 6.7 L [place] % (Auto) 11.5 Eos % (Auto) 7.2 H Baso % (Auto) 0.3 Neut # (Auto) 8200 H Lymph # (Auto) 700 L [place] # (Auto) 1300 H Eos # (Auto) 800 H Baso # (Auto) 0 PT INR APTT 46 H D 44 H Sodium Potassium Chloride Carbon Dioxide BUN Creatinine Estimated GFR BUN/Creatinine Ratio Glucose Calcium Magnesium Total Bilirubin Conjugated Bilirubin Unconjugated Bilirubin AST ALT Alkaline Phosphatase Troponin I Total Protein Albumin Globulin Albumin/Globulin Ratio 06/19/20 08:05 WBC RBC Hgb Hct MCV MCH MCHC RDW Plt Count Neut % (Auto) Lymph % (Auto) [place] % (Auto) Eos % (Auto) Baso % (Auto) Neut # (Auto) Lymph # (Auto) [place] # (Auto) Eos # (Auto) Baso # (Auto) PT INR APTT Sodium 133 L Potassium 5.6 H Chloride 100 Carbon Dioxide 28 BUN 47 H Creatinine 1.84 H Estimated GFR 37.2 L BUN/Creatinine Ratio 25.5 H Glucose 160 H Calcium 8.8 Magnesium 2.2 Total Bilirubin 0.5 Conjugated Bilirubin 0.0 Unconjugated Bilirubin 0.5 AST 44 ALT 16 Alkaline Phosphatase 71 Troponin I Total Protein 6.6 Albumin 3.6 Globulin 3.0 Albumin/Globulin Ratio 1.2 [facility] Medical History SAULO (acute kidney injury) Asthma Bladder cancer (~05/2010) BPH w urinary obs/LUTS CKD stage G3a/A3, GFR 45-59 and albumin creatinine ratio >300 mg/g Diabetes mellitus, type II GERD (gastroesophageal reflux disease) Gout HLD (hyperlipidemia) HTN (hypertension) Hyperkalemia Hypoxemia JESSIE on CPAP PVD (peripheral vascular disease) Right-sided carotid artery disease RLS (restless legs syndrome) TIA (transient ischemic attack) Surgical History History of arthroplasty of right knee (~2008) History of arthroscopy of left shoulder (02/13/20) History of bladder surgery History of bone graft History of lumbar spinal fusion Hx of appendectomy Hx of arthroscopy of left knee Hx of arthroscopy of right knee Hx of cervical spine surgery Hx of eye surgery Hx of foot surgery Hx of hernia repair Hx of sinus surgery Hx of tonsillectomy S/P TURP Social History household members: spouse and family Smoking Status: Former smoker alcohol intake: current Assessment & Plan Assessment & Plan narrative: Alvin Donovan is a 65-year-old male with past medical history of type 2 diabetes on insulin therapy, hypertension, CKD stage IIIA with a baseline creatinine of around 1.3, carotid stenosis, hyperlipidemia, BPH with urinary retention status post TURP, and morbid obesity who was admitted yesterday for a right total knee revision/replacement secondary to continued pain after his prior surgery approximately a year ago. Medicine was consulted for acute hypoxic respiratory failure and SAULO today. 1. Acute hypoxemic respiratory failure, likely on chronic - since surgery patient has required supplemental oxygen. O2 dropped to 81% with ambulation. Continue supplemental oxygen, titrate to O2 >90% but no greater than 96%. Patient has JESSIE and home O2 at baseline, using CPAP therapy with 2L at home. -chest x-ray with a diffuse interstitial predominance, unable to perform CT angiogram given elevated creatinine at this time. DVT study was performed which did show a right lower extremity DVT. Started on anticoagulation initially with a heparin infusion now changed to Eliquis 5 mg b.i.d. (Typically would be 10 mg BID initially but will avoid higher dosing given SAULO). 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 - suspect this hypoxia on exertion may be a chronic issue due to his obesity. The patient already uses home oxygen with his CPAP machine. -No wheezing on exam, reports prior history of asthma as a child, but do not suspect COPD exacerbation. Smoking history is 8 pack years, quit many years ago. -TTE showed a normal EF and no evidence of diastolic dysfunction or valvular pathologies. - troponin negative. - patient can be discharged home on eliquis for at least 3-6 months, if too expensive can bridge with Lovenox therapy and start coumadin. - recommend outpatient Pulmonary function testing. 2. Acute kidney injury on chronic kidney disease stage III. Unclear if present on admission. With hyperkalemia. - unclear how acute this rise is, may be related to hypotension reported after surgery, decreased PO intake in setting of lisinopril and metormin. - Will continue to hold lasix at this time given no gross volume overload, and hold lisinopril, NSAID, and metformin. Have lowered amlodipine to 5 mg. Initially given fluids will now discontinue. I have ordered for him to resume lasix tomorrow if he remains admitted. - potassium 5.9, likely chronically so and related to lisinopril and acute renal failure. Will continue to monitor. No evidence of changes on EKG. Will start telemetery. 3. Right lower extremity DVT, acute - started on heparin gtt initially, now with improved renal function started apixaban. 4. Type II diabetes - suspect slight hypoglycemia today is related to worsened renal function at this time. Have decreased lantus to half dose 60 Units and will continue at this time, AM glucose 160 today. - continue oral replacement as tolerated, d50 pushes as needed. Will hold sliding scale for now until sugars improve. Hold metformin as noted above. 5. HTN, chronic - hold lisinopril, will decrease amlodipine and hold lasix for now. Continue to monitor. 6. BPH, chronic, s/p TURP. - reportedly with history of post- operative urinary retention. Allen in place. Likely trial of void as an outpatient. Renal ultrasound pending. 7. s/p R total knee - continue management per primary, pain control per primary. 8. Obesity with BMI of 47.2 - patient's obesity puts him at higher risk of surgical and medical complications and has contributed towards his hypoxia during this admission. Code: Full as discussed with the patient. Thank you for this interesting consultation. Medicine will continue to follow this patient while admitted. Quality VTE Deep Vein Thrombosis/Pulmonary Embolism Present on Admission: No
--- NOTE | 2020-06-19 16:29 | PC.NURSE ---
Addendum entered by Fanny Kim R.N. 06/19/20 23:29: Satisfactory post op course. Denies discomfort Pt plans on D/C home tomorrow. Call light w/in reach, bed alrm on for pt safetfty. Continue w/plan of care. Original Note: Pt watching TV Denies discomfort @ this time. med @ 1500 Lungs clear, SpO2 98% RA NISH dsg to right knee CDI. CMS +, pulses + HL RFA intact/patent. Call light w/in reach, pt calls appropriately for needs. .
[2020-06-19] MEDS: SIMVASTATIN 20 MG TABLET PO (21:13)
[2020-06-19] MEDS: METFORMIN HCL 500 MG TABLET 1000 MG PO (21:14)
[2020-06-19] MEDS: AMLODIPINE 5 MG TABLET 10 MG PO (21:14)
[2020-06-19] MEDS: PRAMIPEXOLE 0.25 MG TABLET 0.75 MG PO (21:15)
[2020-06-19] MEDS: TERAZOSIN 5 MG CAPSULE PO (21:21)
[2020-06-19] MEDS: INSULIN GLARGINE 100 UNIT/ML 3ML PEN 60 UNIT SUBCUT (21:22)
[2020-06-19] MEDS: OXYCODONE IR 5 MG TABLET PO (23:29)
[2020-06-20] VITALS: BP 141/65; PULSE 79; RESP 16; TEMP 36.9; O2SAT 95
--- NOTE | 2020-06-20 00:25 | PC.NURSE ---
Addendum entered by Almita Bolivar R.N. 06/20/20 03:58: Complains of 7/10 right knee pain so medicated with Oxycodone and ice pack applied Original Note: [id number] patient assessment done. Is alert and oriented. Breath sounds diminished at bases but CTA. Using CPAP with oxygen bled in at 2L/min with sat of 95%. HRR. Denies nausea. BT hypoactive but is passing flatus; no BM since 06/16. Indwelling catheter is patent; urine is clear yellow and plan is for patient to go home with catheter due to retention. Is able to turn himself in bed. Reportedly is up with walker and 1 assist but gait not assessed at this time. NISH dressing to right knee is intact and functioning with small spot dk red/brown drainage noted. Knee is swollen. Patient complains of 5/10 pain so medicated with Oxycodone and ice packs applied. Chronic numbness in left LE is unchanged. CMS is otherwise intact but patient not able to lift right leg off bed. Bilateral calf SCD's applied. Fall risk score is high and bed alarm is activated.
[2020-06-20] MEDS: OXYCODONE IR 10 MG TABLET PO ×3 (03:54→12:58)
[2020-06-20 03:57] VITALS: BP 144/66; PULSE 78; RESP 16; TEMP 36.7; O2SAT 97
--- NOTE | 2020-06-20 06:50 | P.DS_ITS ---
History of Present Illness History of Present Illness Date Patient Seen: 06/20/20 Time Patient Seen: 06:50 Chief complaint: RT TKA Rev Narrative: The history and physical is contained in the chart previously completed note. Please refer to that note for this information. Discharge Providers Provider Date of admission: 06/17/20 06:18 Discharge Date: 06/20/20 Primary care physician: Javi Del Toro MD Consults: 06/17/20 12:28 Consult to Discharge Planning Routine Comment: Consult to Physical Therapy Evaluate & Treat Comment: Physician Instructions: postop TKA protocol Consult to Respiratory Therapy Evaluate & Treat Comment: Physician Instructions: Evaluate and treat 06/18/20 13:27 Consult to Hospitalist Service Routine Comment: Consulting Provider: Maxx Wolf Reason for consultation: o2 Has provider been notified: Yes Discharge provider: Vineet Uribe MD Summary Hospital Course Discharge Diagnosis: 1. Failure of right total knee replacement 2. Deep venous thrombosis 3. Acute renal insufficiency 4. Mild post hemorrhagic anemia 5. Acute hypoxia possibly due to pulmonary embolism Exam Vital Signs (past 8 hours): - 06/20/20 00:00 06/20/20 03:57 Temperature 98.5 F 98.0 F Pulse Rate 79 78 Respiratory Rate 16 16 Blood Pressure 141/65 H 144/66 H Pulse Oximetry 95 97 Oxygen Delivery Method Nasal Cannula,CPAP Oxygen Flow Rate 2 Narrative Exam Narrative: Right knee wound is dressed with no significant drainage on the bandage. Calf is soft. Light touch and motion are intact in the right lower extremity. Objective Labs Result Diagrams: 06/19/20 08:05 06/19/20 08:05 Labs: Laboratory Results - last 24 hr 06/19/20 06/19/20 06/19/20 08:05 08:05 08:05 WBC 11.0 RBC 4.15 L Hgb 12.9 L Hct 38.7 L MCV 93.1 MCH 31.1 MCHC 33.4 RDW 14.9 H Plt Count 152 Neut % (Auto) 74.3 Lymph % (Auto) 6.7 L [place] % (Auto) 11.5 Eos % (Auto) 7.2 H Baso % (Auto) 0.3 Neut # (Auto) 8200 H Lymph # (Auto) 700 L [place] # (Auto) 1300 H Eos # (Auto) 800 H Baso # (Auto) 0 APTT 44 H Sodium 133 L Potassium 5.6 H Chloride 100 Carbon Dioxide 28 BUN 47 H Creatinine 1.84 H Estimated GFR 37.2 L BUN/Creatinine Ratio 25.5 H Glucose 160 H Calcium 8.8 Magnesium 2.2 Total Bilirubin 0.5 Conjugated Bilirubin 0.0 Unconjugated Bilirubin 0.5 AST 44 ALT 16 Alkaline Phosphatase 71 Total Protein 6.6 Albumin 3.6 Globulin 3.0 Albumin/Globulin Ratio 1.2 PFSH Medical History SAULO (acute kidney injury) Asthma Bladder cancer (~05/2010) BPH w urinary obs/LUTS CKD stage G3a/A3, GFR 45-59 and albumin creatinine ratio >300 mg/g Diabetes mellitus, type II GERD (gastroesophageal reflux disease) Gout HLD (hyperlipidemia) HTN (hypertension) Hyperkalemia Hypoxemia JESSIE on CPAP PVD (peripheral vascular disease) Right-sided carotid artery disease RLS (restless legs syndrome) TIA (transient ischemic attack) Surgical History History of arthroplasty of right knee (~2008) History of arthroscopy of left shoulder (02/13/20) History of bladder surgery History of bone graft History of lumbar spinal fusion Hx of appendectomy Hx of arthroscopy of left knee Hx of arthroscopy of right knee Hx of cervical spine surgery Hx of eye surgery Hx of foot surgery Hx of hernia repair Hx of sinus surgery Hx of tonsillectomy S/P TURP Social History household members: spouse and family Smoking Status: Former smoker alcohol intake: current Discharge Assessment & Plan Assessment and Plan Assessment: The patient is improving 3 days postoperatively after his right knee revision. He had an acute episode of hypoxia thought to be potentially related to a pulmonary embolism overlying his chronic mild hypoxia at home. He was diagnosed with a deep venous thrombosis. He had a mild post hemorrhagic anemia. He had acute renal insufficiency. At the time of this dictation it appears that he will likely be stable for discharge later today. Plan of Treatment: Will have physical therapy for the knee. Follow up at my office in 2 weeks. His prescriptions for oxycodone at home. He has been given a prescription for apixaban for his thrombosis. He will have follow-up with his medical provider for his renal situation and his hypoxia. Likely will be on anticoagulants for 6 months. Discharge Plan Discharge Plan Patient Disposition: Home Discharge orders & Medications Prescriptions: New apixaban 5 mg tablet 5 mg PO BID 30 Days Qty: 60 RF: 0 Continued allopurinol 100 mg tablet 100 mg PO DAILY RF: 0 furosemide 40 mg Tablet 40 mg PO BID RF: 0 terazosin 5 mg Capsule 5 mg PO BEDTIME RF: 0 Lantus U-100 Insulin 100 unit/mL Solution 120 unit SUBCUT QPM RF: 0 atenolol 100 mg Tablet 100 mg PO BID RF: 0 amlodipine 10 mg Tablet 10 mg PO QPM RF: 0 simvastatin 20 mg Tablet 20 mg PO BEDTIME RF: 0 metformin 1,000 mg Tablet 1,000 mg PO BID RF: 0 omeprazole 20 mg Capsule,Delayed Release(Dr/Ec) 20 mg PO BID RF: 0 allopurinol 300 mg Tablet 300 mg PO DAILY RF: 0 albuterol sulfate [ProAir HFA] 90 mcg/actuation Hfa Aerosol Inhaler 2 puff INHALATION QID PRN (Reason: Nasal Congestion) RF: 0 oxycodone 5 mg Tablet 10 mg PO Q6H PRN (Reason: Pain (Scale Score 1-3)) RF: 0 pramipexole 0.75 mg Tablet 0.75 mg PO QPM RF: 0 oxycodone 5 mg Tablet 5 mg PO Q4H PRN (Reason: Pain, Moderate (4-6)) Qty: 40 RF: 0 magnesium chloride 64 mg Tablet Extended Release 128 mg PO BID RF: 0 testosterone cypionate 200 mg/mL Kit 200 mg IM Q2W RF: 0 insulin lispro [Humalog KwikPen Insulin] 100 unit/mL Insulin Pen 0 - 40 unit SUBCUT TID PRN (Reason: Sliding scale for hyperglycemia) RF: 0 Discontinued lisinopril 30 mg Tablet 30 mg PO DAILY RF: 0 aspirin [Aspirin Childrens] 81 mg Tablet,Chewable 81 mg PO DAILY RF: 0 Follow up/Referrals: Conrad Daniels MD [Non-Staff] - 2 Weeks (Follow up regarding elevated potassium ) Javi Del Toro MD [Primary Care Provider] - (Regarding BS management ) Priya Cespedes MD [Non-Staff] - 1 Week (Follow up in 7-10 days for catheter management) Vineet Uribe MD [Physician] - 2 Weeks Discharge Health Status Health Concerns: Once finished with Lovenox please start Aspirin 81 mg twice a day for 6 weeks. Follow up with [facility] regarding elevated Potassium. Follow up with Urologist regarding catheterization. Multidrug resistant organism: No MDRO Diet/Activity/Treatments Diet: Diet as Tolerated and Carb-consistent/Diabetic Activity: You may bear weight as tolerated on your right knee. Cold/Heat Therapy: You may apply ice to the right knee for 15 minutes every hour as needed for pain control. Catheter: 2-way Allen Skin/Wound/Dressing Care Report to your healthcare provider any signs of infection, such as:: chills, fever and increased pain Dressing: Leave jaycob dressing in place until appointment. If stops working can add new batteries. Please call office if becomes saturated. Visit Report/Discharge Packet Instructions: DI for Knee Replacement, DI for Prescription Opioid Use Stand Alone Forms: Surgery Discharge Discharge Data Primary Care Provider: Javi Del Toro Quality VTE Deep Vein Thrombosis/Pulmonary Embolism Present on Admission: No
[2020-06-20] MEDS: ACETAMINOPHEN 325 MG TABLET 650 MG PO ×2 (08:27→12:58)
[2020-06-20] MEDS: polyethylene glycoL 3350 17 GM POWD.PACK PO (08:27)
[2020-06-20] MEDS: METFORMIN HCL 500 MG TABLET 1000 MG PO (08:28)
[2020-06-20] MEDS: DOCUSATE 100 MG CAPSULE PO (08:28)
[2020-06-20] MEDS: FUROSEMIDE 40 MG TABLET PO (08:28)
[2020-06-20] MEDS: APIXABAN 5 MG TABLET PO (08:28)
[2020-06-20] MEDS: SODIUM CHLORIDE 0.9% FLUSH 10 ML IV (08:28)
[2020-06-20 08:30] VITALS: BP 144/61; PULSE 81; RESP 16; TEMP 37; O2SAT 91
[2020-06-20] MEDS: PANTOPRAZOLE 20 MG TABLET PO (08:30)
[2020-06-20] MEDS: MAGNESIUM CHLORIDE 64 MG TABLET 128 MG PO (08:33)
[2020-06-20] MEDS: INSULIN ASPART 100 UNIT/ML INSULN PEN SUBCUT ×2 (08:34→13:04)
[2020-06-20] MEDS: atenoloL 50 MG TABLET 100 MG PO (08:49)
[2020-06-20] MEDS: allopurinoL 100 MG TABLET PO (08:49)
[2020-06-20] MEDS: allopurinoL 300 MG TABLET PO (08:52)
[2020-06-20 09:00] VITALS: O2SAT 95
--- NOTE | 2020-06-20 11:20 | PT.IPTN ---
Current Diagnoses Broken internal right knee prosthesis, initial encounter (06/17/20) Surgery Performed Operation Date: 06/17/20 07:45 Actual Procedures p Total Knee Arthroplasty Revision (Right) - Vineet Uribe MD Physical Therapy Treatment Note M2 PT-IP Current Condition Start: 06/17/20 12:50 Freq: NEEDED Status: Active Protocol: Document 06/17/20 14:57 AW (Rec: 06/17/20 15:27 AW [id number]) Physical Therapy Current Condition Current Condition Evaluation Date 06/17/20 Treatment Diagnosis R TKA revision; difficulty in walking Onset Date 06/17/20 Weight Bearing Status Weight Bearing Status Weight Bear as Tolerated M3 PT-IP Subjective Start: 06/17/20 12:50 Freq: NEEDED Status: Active Protocol: Document 06/20/20 11:20 AW (Rec: 06/20/20 11:51 AW [id number]) Subjective Physical Therapy Visit Type Type Treatment Note Visit Start Time 10:05 Visit Stop Time 11:00 Total Visit Minutes 55 Number of HOTEL MAINTENANCE ENGINEER Visits 0 Physical Therapy Visit Comments Patient Comments Pt agreeable to working with therapy. Patient Goals Home with assist of spouse and family members. Therapy Pain Assessment Pain When Pain Assessed At Rest Pain Present Pain Present Pain Reported Location right knee Intensity 7 Scale Used 10/10 with movement Pain Behaviors Facial Grimacing,Guarding, Restlessness,Wincing Pain Management Techniques Distraction,Re-positioning, Timing of Activity with Medications M4 PT-IP Mobility and Gait Start: 06/17/20 12:50 Freq: NEEDED Status: Active Protocol: Document 06/20/20 11:20 AW (Rec: 06/20/20 11:51 AW [id number]) PT-Bed Mobility Assessment Supine to Sit Supine to Sit Minimal Assistance,1 Person Assistance,Head of Bed Elevated,Bedrails Scooting Scooting to Edge of Bed Contact Guard Assistance PT-Transfer Assessment Sit to and From Stand Sit to and from Stand Minimal Assistance,1 Person Assistance,Use of Upper Extremities Equipment Transfer Assistive Device Gait Belt,Front Wheeled Walker Orthotic/Prosthetic Devices or Brace: No Transfers Transfer Destination Chair,Wheelchair Transfer Technique pt ambulated using FWW Transfer Ability Level of Assist Contact Guard Assistance, Minimal Assistance,1 Person Assistance,Use of Upper Extremities Comments Mobility Comments SpO2 on room air was 90% as PT arrived. Applied O2 via NC at 2L/min. SpO2 erlinda to 94% within 30 seconds. Pt has adjustable bed at home and so raised the HOB to 25 degrees for supine to sit requiring min A x 1 for support of his operative leg. Pt winced and complained of increased pain as the knee bent over the edge . He scooted toward the foot of the bed CGA to find a more level surface to push off of. Sit to stand required min A x 1 and assist to stabilize the walker as pt used left hand on the FWW and right hadn on the bed to push. He ambulated 8 feet to the chair using FWW min A x 1 and transferred to the chair with min A x 1, demonstrating poor control of descent. SpO2 was 92% on 2L/ min as pt's WOB increased. After brief rest and transfer to portable O2 tank, pt transferred to a [facility] min A x 1 with FWW and was wheeled to the stairs. Pt stood from the [facility] min A x 1 and ambulated 10 feet to the stairs with FWW min A x 1. Pt climbed stairs with unilateral hand rail and OSTEOPATHY DOCTOR opposite hand min A x 1 and required cues for sequencing while descending stairs. He then returned to the /, was wheeled back to the room. He transferred to the chair min A x 2 with FWW and was positioned with legs elevated, fresh ice packs applied, call light and all needs in reach. Gait Assessment Gait Gait Assistance Required: Minimum Assistance,1 Person Assist Distance (Feet) 10 Able to Maintain Weight Bearing Status Yes During Gait Assistive Devices Assistive Device Gait Belt,Front Wheeled Walker Orthotic/Prosthetic Devices or Brace: No Gait Deviations General Gait Pattern Antalgic,Decreased Stride Length,Festinating,Step-to Gait,Wide Based Gait Factors Limiting Gait Function Factors Limiting Gait Function Decreased Activity Tolerance, Decreased Strength,Limited Range of Motion,Pain,Poor Balance,Poor Safety Awareness Comments Gait Comments Pt is avoiding WB on the RLE, using heavy UE weightbearing on the walker. Gait is excessively antalgic affecting pt's balance to the point of requiring min assist. Stair Climbing Assessment Evaluation Level of Assist On Stairs Minimal Assistance,1 Person Assistance Devices Stair Climbing Assistive Devices Left Railing,Right Railing Technique/Endurance Stair Climbing Direction Ascend and Descend Stair Climbing Technique Step to Step Number of Steps Climbed 3 Stair Climbing Set # Repetitions (reps) 2 Comments Stair Climbing Comments Pt required verbal cues for sequencing on descent using R rail and OSTEOPATHY DOCTOR left side with min A x 1. PT-Balance Assessment Sitting Balance and Reactions Static Sitting Balance Ability Good Dynamic Sitting Balance Ability Good Standing Balance and Reactions Static Standing Balance Ability Fair Dynamic Standing Balance Ability Fair Device Used FWW M5 PT-IP Objective Assessments Start: 06/17/20 12:50 Freq: NEEDED Status: Active Protocol: Document 06/17/20 14:57 AW (Rec: 06/17/20 16:49 AW [id number]) Orientation Orientation/Cognition Level of Alertness Alert Orientation Name,Age,Birthday,Month,Date, Year,Day of Week,Place, Situation Language Function Ability No Deficits Noted Safety Awareness Understands Safety Issues Memory Description No Deficits Noted Gross Range of Motion Lower Extremity ROM Assessment Right Impaired Strength Lower Extremity Strength Assessment Right Impaired Hip 4/5 Knee 3+/5 Ankle 4+/5 Comments Strength Comments LLE grossly 5/5 Coordination Assessment Gross Coordination Gross Coordination WNL Sensation Assessment Sensation Gross Sensation WNL Comments Sensation Comments Pt denied numbness in BLE Muscle Tone Muscle Tone WNL Yes M6 PT-IP Treatment Start: 06/17/20 12:50 Freq: NEEDED Status: Active Protocol: Document 06/20/20 11:20 AW (Rec: 06/20/20 11:51 AW [id number]) Physical Therapy Treatment Education Education Provided Weight Bearing Status,Safety Other Treatments Other Treatment Performed Continued education on energy conservation. Also discussed increasing assist needs and potential need for caregiver training prior to discharge. M7 PT-IP Assessment and Plan Start: 06/17/20 12:50 Freq: NEEDED Status: Active Protocol: Document 06/20/20 11:20 AW (Rec: 06/20/20 11:51 AW [id number]) PT Summary Assessment and Plan Potential Rehabilitation Potential Good Status of Condition at Evaluation Evolving Summary Impairments Pain,ROM,Strength,Balance,Bed Mobility,Transfers,Gait, Activity Tolerance Progress Towards Goals Slow Progress due to Pain,Slow Progress due to Medical Issues Assessment Summary Pt required min assist for all mobility with decreased activity tolerance and increased pain today. Pt is mobilizing safely but requires frequent breaks due to pain and WOB. SpO2 was stable 90-96 % during mobility on 2L/min O2 . Pt states he would do better with his own walker (it's wider) and his own bed. Pt may benefit from caregiver training conducted either with his or with his brother depending on who will be providing most assist on stairs. Continue to plan for discharge to home with assist and outpatient PT. Goals Bed Mobility Goal Independent Transfer Goal Independent,Front Wheeled Walker Gait Goal Independent,Front Wheel Walker Gait Distance 200 Other Goals - up/down 7 steps with unilateral rail SBA Days to Meet Goals 4 Frequency of Treatment Frequency Of Treatment Twice a Day Treatment Plan Physical Therapy Treatment Plan Bed Mobility Training,Transfer Training,Gait Training, Therapeutic Exercise,Balance Retraining,Post Op Education, Discharge Planning,Hot or Cold Pack Other Recommendations and Next Treatment Check vitals: O2, gait with Focus SaO2 > 90 % supplimental O2 if needed. CGT? Recommendations To Nursing Amount of Assist Needed 1 Person Assist Discharge Recommendations PT Discharge Recommendations Home with Assistance, Outpatient PT Transportation Needs at Discharge Private Vehicle
--- NOTE | 2020-06-20 13:09 | P.PN_ITS ---
Subjective Subjective Date Patient Seen: 06/20/20 Time Patient Seen: 13:10 Interval history: Alvin Donovan is a 65-year-old male with past medical history of type 2 diabetes on insulin therapy, hypertension, CKD stage IIIA with a baseline creatinine of around 1.3, carotid stenosis, hyperlipidemia, BPH with urinary retention status post TURP, and morbid obesity who was admitted 06/17 for a right total knee revision/replacement secondary to continued pain. Medicine was consulted for exertional dyspnea and hypoxia, as well as an SAULO. His dyspnea has improved. BMP was not rechecked today. Patient is to discharge home later today per orthopedic service. He appears stable for discharge home on apixaban. I did speak with the patient and he will call his legal assistant for follow up next week and repeat labs. I recommended holding his lisinopril but resuming his lasix until he speaks with his legal assistant. Exam Vital Signs (past 8 hours): - 06/20/20 08:30 Temperature 98.6 F Pulse Rate 81 Respiratory Rate 16 Blood Pressure 144/61 H Pulse Oximetry 91 Oxygen Delivery Method Room Air,Nasal Cannula Oxygen Flow Rate 2 Narrative Exam Narrative: GENERAL APPEARANCE: Well developed, well nourished, obese male, BMI 47.2, in no acute distress. Appears mildly uncomfortable due to pain. SKIN: Inspection of the skin reveals no rashes, ulcerations or petechiae. HEENT: Normocephalic atraumatic, extraocular muscles are intact, oropharynx is clear and mucous membranes are moist, neck is supple without adenopathy NECK: Supple and symmetric. There was no thyroid enlargement, and no tenderness, or masses were felt. CHEST: Normal AP diameter and normal contour without any kyphoscoliosis. LUNGS: Auscultation of the lungs revealed no wheezes, rhonchi, or rales. CARDIOVASCULAR: There was a regular rate and rhythm without any murmurs, gallops, rubs. Peripheral pulses were 2+ and symmetric. ABDOMEN: Soft and nontender with normal bowel sounds. MUSCULOSKELETAL: Bilateral lower extremity swelling, right slightly greater than left, although recent surgery with dressings clear dry and intact on the r ight knee. EXTREMITIES: No cyanosis, clubbing. NEUROLOGIC: Alert and oriented x 3. Normal affect. No gross focal deficits. Objective Labs Result Diagrams: 06/19/20 08:05 06/19/20 08:05 COUNT INCLUDES THE [facility] Medical History SAULO (acute kidney injury) Asthma Bladder cancer (~05/2010) BPH w urinary obs/LUTS CKD stage G3a/A3, GFR 45-59 and albumin creatinine ratio >300 mg/g Diabetes mellitus, type II GERD (gastroesophageal reflux disease) Gout HLD (hyperlipidemia) HTN (hypertension) Hyperkalemia Hypoxemia JESSIE on CPAP PVD (peripheral vascular disease) Right-sided carotid artery disease RLS (restless legs syndrome) TIA (transient ischemic attack) Surgical History History of arthroplasty of right knee (~2008) History of arthroscopy of left shoulder (02/13/20) History of bladder surgery History of bone graft History of lumbar spinal fusion Hx of appendectomy Hx of arthroscopy of left knee Hx of arthroscopy of right knee Hx of cervical spine surgery Hx of eye surgery Hx of foot surgery Hx of hernia repair Hx of sinus surgery Hx of tonsillectomy S/P TURP Social History household members: spouse and family Smoking Status: Former smoker alcohol intake: current Assessment & Plan Assessment & Plan narrative: Alvin Donovan is a 65-year-old male with past medical history of type 2 diabetes on insulin therapy, hypertension, CKD stage IIIA with a baseline creatinine of around 1.3, carotid stenosis, hyperlipidemia, BPH with urinary retention status post TURP, and morbid obesity who was admitted yesterday for a right total knee revision/replacement secondary to continued pain after his prior surgery approximately a year ago. Medicine was consulted for acute hypoxic respiratory failure and SAULO. 1. Acute hypoxemic respiratory failure, likely on chronic - since surgery patient has required supplemental oxygen. O2 dropped to 81% with ambulation. Continue supplemental oxygen, titrate to O2 >90% but no greater than 96%. Patient has JESSIE and home O2 at baseline, using CPAP therapy with 2L at home. -chest x-ray with a diffuse interstitial predominance, unable to perform CT angiogram given elevated creatinine at this time. DVT study was performed which did show a right lower extremity DVT. Started on anticoagulation initially with a heparin infusion now changed to Eliquis 5 mg b.i.d. (Typically would be 10 mg BID initially but will avoid higher dosing given SAULO). Given negative troponin, SAULO on CKD, unclear time course of hypoxia at baseline, and currently on active anticoagulation CTA will not chart changer. - suspect this hypoxia on exertion may be a chronic issue due to his obesity. T he patient already uses home oxygen with his CPAP machine. -No wheezing on exam, reports prior history of asthma as a child, but do not suspect COPD exacerbation. Smoking history is 8 pack years, quit many years ago. -TTE showed a normal EF and no evidence of diastolic dysfunction or valvular pathologies. - troponin negative. - patient can be discharged home on eliquis for at least 3-6 months, if too expensive can bridge with Lovenox therapy and start coumadin. - recommend outpatient Pulmonary function testing. 2. Acute kidney injury on chronic kidney disease stage III. Unclear if present on admission. With hyperkalemia. - unclear how acute this rise is, may be related to hypotension reported after surgery, decreased PO intake in setting of continued lisinopril and metormin and ordered for ibuprofen after surgery. - He can resume his usual lasix dosing. - potassium 5.9 initially improved with SAULO, likely chronically so and related to lisinopril and acute renal failure. No evidence of changes on EKG. no telemetry events. - patient will follow up with his legal assistant as soon as possible, plans to call for appointment once he leaves today. 3. Right lower extremity DVT, acute - started on heparin gtt initially, now with improved renal function started apixaban. Continue for at least 3-6 months. 4. Type II diabetes - suspect slight hypoglycemia initially is related to worsened renal function at this time. Decreased lantus to half dose 60 Units while admitted. Can likely resume home dosing upon discharge. 5. HTN, chronic - hold lisinopril, okay to resume home lasix and amlodipine. 6. BPH, chronic, s/p TURP. - reportedly with history of post- operative urinary retention. Allen in place. Likely trial of void as an outpatient. Renal ultrasound negative for hydro nephrosis given SAULO. 7. s/p R total knee - continue management per primary, pain control per primary. 8. Obesity with BMI of 47.2 - patient's obesity puts him at higher risk of surgical and medical complications and has contributed towards his hypoxia during this admission. Code: Full as discussed with the patient. Thank you for this interesting consultation. Patient to discharge home today with orthopedics. Quality VTE Deep Vein Thrombosis/Pulmonary Embolism Present on Admission: No
[2020-06-20 13:12] VITALS: BP 143/64; PULSE 74; RESP 16; TEMP 36.8; O2SAT 93
--- NOTE | 2020-06-20 15:35 | PT.IPTN ---
Current Diagnoses Broken internal right knee prosthesis, initial encounter (06/17/20) Surgery Performed Operation Date: 06/17/20 07:45 Actual Procedures p Total Knee Arthroplasty Revision (Right) - Vineet Uribe MD Physical Therapy Treatment Note M2 PT-IP Current Condition Start: 06/17/20 12:50 Freq: NEEDED Status: Active Protocol: Document 06/17/20 14:57 AW (Rec: 06/17/20 15:27 AW [id number]) Physical Therapy Current Condition Current Condition Evaluation Date 06/17/20 Treatment Diagnosis R TKA revision; difficulty in walking Onset Date 06/17/20 Weight Bearing Status Weight Bearing Status Weight Bear as Tolerated M3 PT-IP Subjective Start: 06/17/20 12:50 Freq: NEEDED Status: Active Protocol: Document 06/20/20 15:20 AW (Rec: 06/20/20 15:35 AW [id number]) Subjective Physical Therapy Visit Type Type Treatment Note Visit Start Time 14:53 Visit Stop Time 15:14 Total Visit Minutes 21 Physical Therapy Visit Comments Patient Comments Pt is dressed and ready to go. Patient Goals Home with assist of spouse and family members. Therapy Pain Assessment Pain When Pain Assessed At Rest Pain Present Pain Present Pain Reported Location right knee Intensity 7 Pain Behaviors Facial Grimacing,Guarding, Restlessness,Wincing M4 PT-IP Mobility and Gait Start: 06/17/20 12:50 Freq: NEEDED Status: Active Protocol: Document 06/20/20 15:20 AW (Rec: 06/20/20 15:35 AW [id number]) PT-Transfer Assessment Sit to and From Stand Sit to and from Stand Contact Guard Assistance,1 Person Assistance,Use of Upper Extremities Equipment Transfer Assistive Device Gait Belt,Front Wheeled Walker Orthotic/Prosthetic Devices or Brace: No Transfers Transfer Destination Wheelchair,Car Transfer Technique Stand Step Pivot Transfer Ability Level of Assist Contact Guard Assistance,1 Person Assistance,Use of Upper Extremities Comments Mobility Comments Pt was sitting up in the chair as PT arrived. Discussed home mobility with pt and his and answered all questions. understood how to apply a gait belt and could return demonstrate. Pt stood and transferred chair->wheelchair with FWW CGA and was wheeled to the ED entrance where he was met by his brother in a [employer]. Pt stood from the wheelchair and used his own FWW for stand pivot transfer to the passenger side front seat. Pt backed up to the seat and used the hand hold above his head for support as he swung his left leg into the vehicle. Pt required min assist to lift his right leg up to the cabin. Pt connected his own seat belt and was left to drive off with his family. Stair Climbing Assessment Comments Stair Climbing Comments Pt declined additional practice but was able to verbally teach proper sequencing to both his and his brother. PT-Balance Assessment Sitting Balance and Reactions Static Sitting Balance Ability Good Dynamic Sitting Balance Ability Good Standing Balance and Reactions Static Standing Balance Ability Good Dynamic Standing Balance Ability Fair Device Used FWW M5 PT-IP Objective Assessments Start: 06/17/20 12:50 Freq: NEEDED Status: Active Protocol: Document 06/17/20 14:57 AW (Rec: 06/17/20 16:49 AW [id number]) Orientation Orientation/Cognition Level of Alertness Alert Orientation Name,Age,Birthday,Month,Date, Year,Day of Week,Place, Situation Language Function Ability No Deficits Noted Safety Awareness Understands Safety Issues Memory Description No Deficits Noted Gross Range of Motion Lower Extremity ROM Assessment Right Impaired Strength Lower Extremity Strength Assessment Right Impaired Hip 4/5 Knee 3+/5 Ankle 4+/5 Comments Strength Comments LLE grossly 5/5 Coordination Assessment Gross Coordination Gross Coordination WNL Sensation Assessment Sensation Gross Sensation WNL Comments Sensation Comments Pt denied numbness in BLE Muscle Tone Muscle Tone WNL Yes M6 PT-IP Treatment Start: 06/17/20 12:50 Freq: NEEDED Status: Active Protocol: Document 06/20/20 15:20 AW (Rec: 06/20/20 15:35 AW [id number]) Physical Therapy Treatment Education Education Provided Safety M7 PT-IP Assessment and Plan Start: 06/17/20 12:50 Freq: NEEDED Status: Active Protocol: Document 06/20/20 15:20 AW (Rec: 06/20/20 15:35 AW [id number]) PT Summary Assessment and Plan Potential Rehabilitation Potential Good Status of Condition at Evaluation Evolving Summary Impairments Pain,ROM,Strength,Balance,Bed Mobility,Transfers,Gait, Activity Tolerance Progress Towards Goals Slow Progress due to Pain,Slow Progress due to Medical Issues Assessment Summary Pt improved independence with transfers but did require min assist to manage his operative leg during car transfer. Pt's and brother verbalized understanding of stair climbing technique and guarding. Pt would benefit from outpatient PT to address pain, ROM, strength, and functional mobility. Goals Bed Mobility Goal Independent Transfer Goal Independent,Front Wheeled Walker Gait Goal Independent,Front Wheel Walker Gait Distance 200 Other Goals - up/down 7 steps with unilateral rail SBA Days to Meet Goals 4 Frequency of Treatment Frequency Of Treatment Discharge Discharge Recommendations PT Discharge Recommendations Home with Assistance, Outpatient PT Transportation Needs at Discharge Private Vehicle
== END 2020-06-20 15:00 | disposition home or self-care (01) | DRG 466 ==
PROVIDERS: Internal Medicine; Physician Assistant Surgical; Admitting Provider Orthopaedic Surgery; PCP Family Medicine; Referring Provider Orthopaedic Surgery; Visit Provider Orthopaedic Surgery
PROC: 0SPC0JZ Removal of Synthetic Substitute from Right Knee Joint, Open Approach (ICD-10-PCS; principal; 2020-06-17 07:45)
DX: T84.092A Other mechanical complication of internal right knee prosthesis, initial encounter (principal); J96.01 Acute respiratory failure with hypoxia; I82.411 Acute embolism and thrombosis of right femoral vein; N17.9 Acute kidney failure, unspecified; Z68.42 Body mass index [BMI] 45.0-49.9, adult; E66.01 Morbid (severe) obesity due to excess calories; I12.9 Hypertensive chronic kidney disease with stage 1 through stage 4 chronic kidney disease, or unspecified chronic kidney disease; N18.30 Chronic kidney disease, stage 3 unspecified; E87.5 Hyperkalemia; Z20.822 Contact with and (suspected) exposure to COVID-19; G47.33 Obstructive sleep apnea (adult) (pediatric); E11.22 Type 2 diabetes mellitus with diabetic chronic kidney disease; Z87.891 Personal history of nicotine dependence; Z79.4 Long term (current) use of insulin; M10.9 Gout, unspecified; R33.9 Retention of urine, unspecified; I65.29 Occlusion and stenosis of unspecified carotid artery; N40.1 Benign prostatic hyperplasia with lower urinary tract symptoms
CPT/HCPCS: 36415; 71046; 73560; 76770; 80048; 80076; 82962; 83735; 83880; 84484; 85014; 85018; 85025; 85610; 85730; 87070; 87075; 87205; 87635; 93005; 93306; 93970; 94760; 97116; 97161; 97530; C1776; C9803; A9270; C9290; J0690; J1644; J1650; J2250; J2270; J2274; J2405; J2704; J3010

== ENCOUNTER 2022-09-09 11:53 | Inpatient (IN) | payer MEDICARE, SELFPAY ==
[2020-06-17 12:53] VITALS: BMI 47.2
[2022-09-02 10:38] VITALS: BMI 45.6
[2022-09-09] VITALS (15 sets, daily range): BP systolic 94–142; BP diastolic 49–72; PULSE 68–76; RESP 13–19; TEMP 36.1–36.7; O2SAT 92–98; BMI 45.6
[2022-09-09] MEDS: PREGABALIN 75 MG CAPSULE PO (12:46)
[2022-09-09] MEDS: ACETAMINOPHEN IV 1,000 MG/100 ML VIAL 400 MG IV (12:46)
[2022-09-09] MEDS: LACTATED RINGERS 1,000 ML 42 ML IV ×2 (12:46→16:32)
[2022-09-09 13:07] LABS: COVID19 -Nasal RAPID Negative (Negative)
--- NOTE | 2022-09-09 13:24 | PM.PREOP ---
Pre-operative Note COVID-19 COVID-19 status: Negative Result date/Date tested (Pos, Neg/Pending): 09/08/22 Criteria for continued procedure: Expected advancement of disease process, Possibility delay results in more complex future surgery or treatment, Increased loss of function, Continuing or worsening of significant or severe pain, Deterioration of the patient's condition or overall health and Delay expected to result in less-positive ultimate med/surg outcome Interval Note History & Physical reviewed/Exam performed by Physician: Yes Changes to H&P: No
[2022-09-09] MEDS: CEFAZOLIN VIAL 3 GM in SODIUM CHLORIDE 0.9% 100 ML IV (14:05)
--- NOTE | 2022-09-09 14:34 | SUR.OPER ---
Prone on spine table, head in foam head support, padded chest and pelvic supports, gel pad at knees, lower legs supported by pillows; nipples, genitalia and toes free of pressure, gelpads between heels and under belly and legs. arms secured on foam padded arm boards at <90 degrees abduction. Tape over blanket at thigh and calfs secured to table.
[2022-09-09] MEDS: BUPIVACAINE 0.25% (PF) VIAL 30 ML INJ (14:50)
[2022-09-09] MEDS: BUPIVACAINE LIPOSOME 266 MG/20 ML VIAL INJ (14:51)
--- NOTE | 2022-09-09 16:28 | DI.RAD.S_ITS ---
PROCEDURE: XR LUMBAR SPINE 2-3V INDICATIONS: L5-S1 TLIF TECHNIQUE: 4 intraoperative fluoroscopic films COMPARISON: None. FINDINGS: Low resolution intraoperative fluoroscopic spot films at L4-5 shows interbody fusion with posterior debo and screw instrumentation IMPRESSION: Fluoroscopic guidance Approved by: Eber Ham M.D. on 09/09/2022 at 16:04
--- NOTE | 2022-09-09 16:37 | P.OP_ITS ---
Operative Date/Time/Diagnoses Date of procedure: 09/09/22 Time of procedure: 13:00 Pre-op diagnosis: 1. L5-S1 post laminectomy syndrome 2. L5-S1 spondylosis with radiculopathy Post-op diagnosis: same Procedure & Clinicians Procedure: 1. L5-S1 Postero-lateral and posterior interbody fusion 2. L5-S1 interbody cage placement. 3. L5-S1 decompressive laminectomy with bilateral facetecomies 4. L5-S1 Posterior non-segmental instrumentation 5. [place] of bone marrow from iliac crest 6. Utilization of microsurgical technique and operating microscope Same procedure as scheduled: Yes Indications: Patient has been having chronic back pain and worsening lumbar radiculopathy with history of laminectomy. Patient failed multiple conservative management with worsening pain weakness and numbness in his lower extremity. Patient has been having difficulty performing activity of daily living. After discussing risks benefits of treatment options, patient elected proceed with surgery. Surgeon: Irish Alejandro Multiple Sclerosis Nurse: Celina Lamas Click Yes if Unassisted: No Anesthesia Type: General Operative Notes Closure Type: primary Specimen(s): none sent Prosthetic devices, grafts, tissues, transplants, or devices: Globus Revolve screws, Rise cage Estimated Blood Loss (mL): 50 Blood products transfused: none Procedure in detail: Patient was seen in the preoperative area. Risks and benefits of the surgery was discussed with the patient. Informed consent was obtained from the patient and placed in the chart. Surgical site was marked. Patient was taken to the operative room. General anesthesia was administered. Prophylactic antibiotic was given to the patient less than 30 min before the incision was made. Patient was placed into a prone position on the Juan table. Patient's back was then prepped and draped in the sterile fashion. Time-out was performed at this time. Using AP and lateral C-arm imaging the interval between L5-S1 was identified and marked on patient's back. A 2 inch incision 2 in from midline was made on the left side first. The fascia was incised in line with skin incision. Globus MARS retractors was placed inside the incision and docked onto the L5 lamina. Using microsurgical technique and operating microscope, a L5 laminectomy and L5-S1 facetectomy was performed using a Kerrison rongeur. Patient was found have severe lateral recess and neural foramen stenosis which was fully decompressed after the laminectomy facetectomy. More than 75% of the facets were removed during the process of decompression rendering L5-S1 level grossly unstable and required a fusion procedure at the same time. The disc space at L5-S1 was identified. And a total diskectomy was performed at L5-S1 level. The endplates were decorticated using a rasp and shaver. Patient had significant epidural scarring from the prior laminectomy. The decompression was performed carefully to protect the integrity of the dura. The total diskectomy and decortication was performed at L5-S1 level in order to to accomplish a L5-S1 fusion. The local bone from the laminectomy and facetectomy was saved for local bone grafting. After the total diskectomy and decortication was completed, Trifecta bone graft material was combined with local bone that was harvested earlier. At this time, a separate skin is incision was made over the iliac crest. A Jamshidi needle was inserted into the iliac crest through a separate skin incision. 5 cc of bone marrow aspiration was obtained through the separate skin incision using a Jamshidi needle from the iliac crest. The bone marrow aspiration was combined with local bone and the Trifecta bone grafting material. The bone grafting material was placed into the L5-S1 interbody space along with a expandable cage. The cage was expanded to its maximum height using the torque limiting screwdr iver. At this time a mirror image incision was made on the right side. The fascia was incised in line with the skin incision. Globus MARS retractor was inserted and docked onto the L5-S1 posterolateral gutter. Using the power drill, posterior- lateral decortication was performed at L5-S1 level until bleeding cortical bone was identified. The remaining bone grafting material was placed into the L5-S1 posterior lateral gutter he order to accomplish posterolateral fusion at the L5- S1 level. Using the double C-arm technique, pedicle screws were placed into the L5-S1 pedicles bilaterally. This was done by placing the Jamshidi needle into the pedicles, then placing the guidewires over the Jamshidi needle, and finally placing the cannulated screws over the guidewires bilaterally. After the pedicle screws were placed, 2 titanium rods was locked into the heads of the pedicle screws using locking caps and torque limiting screwdriver. After all the hardware was placed, and confirmed with AP and lateral C-arm imaging, the wound was then irrigated with sterile normal saline and packed with Ray-Lizz gauze for 3 min to accomplish hemostasis. After the gauze was removed the deep fascia was closed with #1 Vicryl suture. The subcutaneous layer was closed with 2-0 Vicryl. The skin was closed with skin luz. Patient tolerated the procedure well. There were no complications. Complications: none Post-operative Condition: stable Disposition: PACU Plan for aftercare: Admit to inpatient hospital
[2022-09-09] MEDS: HYDROMORPHONE 2 MG INJ IV ×2 (17:12→17:26)
[2022-09-09] MEDS: hydrOXYzine pamoate 25 MG CAPSULE PO (17:18)
[2022-09-09] MEDS: OXYCODONE IR 5 MG TABLET PO ×2 (17:19→17:50)
--- NOTE | 2022-09-09 17:32 | SUR.PHASEI ---
1725 SBAR report at bedside to Nadia HAMM.
[2022-09-09] MEDS: LACTATED RINGERS 1,000 ML 125 ML IV (18:26)
[2022-09-09] MEDS: HYDROMORPHONE 0.5 MG INJ IV ×3 (18:28→23:47)
[2022-09-09] MEDS: PRAMIPEXOLE 0.25 MG TABLET 0.75 MG PO (18:36)
--- NOTE | 2022-09-09 18:56 | PC.NURSE ---
Pt arrived from PACU to room 209 at 1800. A&OX4, VSS, afebrile on 2 LNC. Voice raspy, and reports pain 12/. He is repositioned to opposite side and although he is unable to rate pain he reports It is finally starting to come down. I can talk now, before I couldnt talk. BG check is 116, he is able to tolerate jello this evening. LR@ 125ml/hr. Pt states he last voided approximately noon and is due to void at 1999. Call light in reach, oriented to room, scds on B calves. Continuous monitoring.
[2022-09-09] MEDS: OXYCODONE IR 10 MG TABLET PO ×2 (20:00→23:46)
[2022-09-09] MEDS: ATORVASTATIN 20 MG TABLET 10 MG PO (21:12)
[2022-09-09] MEDS: MAGNESIUM OXIDE 400 MG TABLET 1200 MG PO (21:12)
[2022-09-09] MEDS: DOCUSATE 100 MG CAPSULE PO (21:13)
[2022-09-09] MEDS: CEFAZOLIN 2 GM/100 ML PREMIX 100 ML IV (21:13)
[2022-09-09] MEDS: SENNOSIDES 8.6 MG TABLET 17.2 MG PO (21:13)
[2022-09-09] MEDS: METFORMIN HCL 500 MG TABLET 1000 MG PO (21:13)
[2022-09-09] MEDS: carvediloL 12.5 MG TABLET 25 MG PO (21:13)
[2022-09-09] MEDS: TERAZOSIN 5 MG CAPSULE PO (21:16)
[2022-09-09] MEDS: PANTOPRAZOLE DR 20 MG TABLET PO (23:46)
[2022-09-10] MEDS: OXYCODONE IR 10 MG TABLET PO ×5 (04:29→20:49)
[2022-09-10] MEDS: HYDROMORPHONE 0.5 MG INJ IV ×6 (04:29→20:50)
[2022-09-10] MEDS: CEFAZOLIN 2 GM/100 ML PREMIX 100 ML IV (04:30)
[2022-09-10 04:53] VITALS: BP 158/58; PULSE 92; RESP 18; TEMP 37.2; O2SAT 95
[2022-09-10 06:05] LABS: Hematocrit 39.6 % (41-53); Hemoglobin 13.2 g/dL (13.5-17.5)
[2022-09-10] MEDS: PANTOPRAZOLE DR 20 MG TABLET PO ×2 (06:06→21:05)
--- NOTE | 2022-09-10 07:40 | P.PN_ITS ---
Subjective Subjective Date Patient Seen: 09/10/22 Time Patient Seen: 07:41 Interval history: 67-year-old male with a complex medical history including right lower extremity DVT after revision right total knee arthroplasty, type 2 diabetes on insulin therapy, hypertension, CKD stage IIIA carotid stenosis, hyperlipidemia, history of TIA, total knee arthroplasty infection as well as final hardware infection with history of left toe osteomyelitis. Pain is moderate. Denies fever chills. Patient's is home but has limited ability to assist him. Patient also has his daughter at home to assist him. Exam Vital Signs (past 8 hours): - 09/10/22 04:53 Temperature 98.9 F Pulse Rate 92 H Respiratory Rate 18 Blood Pressure 158/58 H Pulse Oximetry 95 Oxygen Flow Rate 4 Fraction of Inspired Oxygen 26 SaO2/FiO2 Ratio 361 Oxygen Delivery Method Nasal Cannula Oxygen Flow Rate 4 Narrative Exam Narrative: 67-year-old male resting comfortably in bed in no apparent distress. Motor functions intact bilateral lower extremities. Sensation grossly intact to light touch bilateral lower extremities. Const General: cooperative and comfortable Nutritional Appearance: well nourished and obese (BMI 45.6) morbidly obese Orientation: alert and oriented x3 Resp Effort & Inspection: normal respiratory effort and able to speak in complete sentences Objective Labs 09/10/22 05:40 Labs: Laboratory Results - last 24 hr 09/09/22 09/10/22 12:47 05:40 Hgb 13.2 L Hct 39.6 L SARS-CoV-2 (PCR) Negative [facility] Medical History SAULO (acute kidney injury) Amputated toe of left foot (2021) Asthma Bladder cancer (~05/2010) BPH w urinary obs/LUTS CKD stage G3a/A3, GFR 45-59 and albumin creatinine ratio >300 mg/g Diabetes mellitus, type II DVT (deep venous thrombosis) (2020) GERD (gastroesophageal reflux disease) Gout History of COVID-19 (04/03/22) HLD (hyperlipidemia) HTN (hypertension) Hyperkalemia Hypoxemia JESSIE on CPAP PVD (peripheral vascular disease) Right-sided carotid artery disease RLS (restless legs syndrome) TIA (transient ischemic attack) Surgical History History of arthroplasty of right knee (~2008) History of arthroscopy of left shoulder (02/13/20) History of bladder surgery History of bone graft History of lumbar spinal fusion History of total right knee replacement (06/17/20) Hx of appendectomy Hx of arthroscopy of left knee Hx of arthroscopy of right knee Hx of cervical spine surgery Hx of eye surgery Hx of foot surgery Hx of hernia repair Hx of sinus surgery Hx of tonsillectomy S/P TURP Social History household members: spouse and family Smoking Status: Former smoker alcohol intake: current Assessment & Plan Post-op Postoperative Procedures: Procedures Operation Date: 09/09/22 13:45 Actual Procedure Side Surgeon p L5-S1 TLIF Irish Alejandro MD Postoperative day: 1 Postoperative status narrative: Patient is stable status post L5-S1 fusion Postoperative plan: routine post-op care Postoperative plan narrative: Multimodal pain management Ankle pumps in bed along with SCDs. We will discuss anticoagulation with Dr. Alejandro and likely add aspirin and Lovenox today. Encourage out of bed Limit bending, twisting, lifting Disposition to be determined Quality VTE Deep Vein Thrombosis/Pulmonary Embolism Present on Admission: No
[2022-09-10 08:05] VITALS: BP 149/56; PULSE 93; RESP 20; TEMP 37; O2SAT 96
[2022-09-10] MEDS: allopurinoL 100 MG TABLET 200 MG PO (08:43)
[2022-09-10] MEDS: AMLODIPINE 5 MG TABLET 10 MG PO (08:43)
[2022-09-10 08:44] VITALS: BP 149/56; PULSE 93
[2022-09-10] MEDS: lisinopriL 20 MG TABLET PO (08:44)
[2022-09-10] MEDS: TERAZOSIN 5 MG CAPSULE PO ×2 (08:44→21:05)
[2022-09-10] MEDS: DOCUSATE 100 MG CAPSULE PO ×2 (08:44→20:49)
[2022-09-10] MEDS: hydrOXYzine pamoate 25 MG CAPSULE PO ×3 (08:44→17:55)
[2022-09-10] MEDS: FUROSEMIDE 40 MG TABLET PO ×2 (08:44→20:49)
[2022-09-10] MEDS: carvediloL 12.5 MG TABLET 25 MG PO ×2 (08:44→20:49)
[2022-09-10] MEDS: MAGNESIUM OXIDE 400 MG TABLET 1200 MG PO ×2 (08:45→20:49)
[2022-09-10] MEDS: ASPIRIN EC 81 MG TABLET PO ×2 (08:45→20:49)
[2022-09-10] MEDS: METFORMIN HCL 500 MG TABLET 1000 MG PO ×2 (08:45→20:50)
[2022-09-10 08:46] VITALS: O2SAT 96
[2022-09-10] MEDS: ACETAMINOPHEN 325 MG TABLET 650 MG PO (08:49)
--- NOTE | 2022-09-10 09:44 | OT.IP.EVAL ---
Current Diagnoses Spinal stenosis, lumbosacral region (09/09/22) Postlaminectomy syndrome, not elsewhere classified (09/09/22) Surgery Performed Operation Date: 09/09/22 13:45 Actual Procedures p L5-S1 TLIF - Irish Alejandro MD Past Medical History (Last Reviewed 09/10/22 @ 07:50 by Vinny Corona PA-C) SAULO (acute kidney injury) Amputated toe of left foot (2021) Asthma Bladder cancer (~05/2010) BPH w urinary obs/LUTS CKD stage G3a/A3, GFR 45-59 and albumin creatinine ratio >300 mg/g Diabetes mellitus, type II DVT (deep venous thrombosis) (2020) GERD (gastroesophageal reflux disease) Gout History of COVID-19 (04/03/22) HLD (hyperlipidemia) HTN (hypertension) Hyperkalemia Hypoxemia JESSIE on CPAP PVD (peripheral vascular disease) Right-sided carotid artery disease RLS (restless legs syndrome) TIA (transient ischemic attack) Surgical History (Last Reviewed 09/10/22 @ 07:50 by Vinny Corona PA-C) History of arthroplasty of right knee (~2008) History of arthroscopy of left shoulder (02/13/20) History of bladder surgery History of bone graft History of lumbar spinal fusion History of total right knee replacement (06/17/20) Hx of appendectomy Hx of arthroscopy of left knee Hx of arthroscopy of right knee Hx of cervical spine surgery Hx of eye surgery Hx of foot surgery Hx of hernia repair Hx of sinus surgery Hx of tonsillectomy S/P TURP Occupational Therapy Inpatient Evaluation/Re-Eval M1 PT/OT-IP Prior Functional Status Start: 09/10/22 11:35 Freq: NEEDED Status: Active Protocol: Document 09/10/22 09:08 [facility] (Rec: 09/10/22 12:44 [facility] [id number]) Medical Review Prior Functional Status Communication independent Mobility and Gait Use of SPC on occasion Activities of Daily Living and IADL's Pt states had pain with ADL needs. Social History Household Members spouse,family Living Arrangements House Number of Floors (Floors) Two Floors Number of Stairs To Enter/Railing? Pt has 7 concrete/brick steps with wide bilateral rails. Home Environment Standard Height Toilet,Tub/ Shower Home Equipment Front Wheel Walker,Straight Cane,Crutches,Raised Toilet Seat w/Armrests,Tub Transfer Bench,Hand Held Shower,Sock Aid Additional Social History Comment Pt able to help limited , but daughter at home to assist. M2 OT-IP Current Condition Start: 09/10/22 12:22 Freq: Status: Active Protocol: Document 09/10/22 09:08 [facility] (Rec: 09/10/22 12:44 [facility] [id number]) Occupational Therapy Current Condition Current Condition Evaluation Date 09/10/22 Treatment Diagnosis S/p L5-S1 TLIF Diagnosis Onset Date 09/09/22 Post Operative Precautions Lumbar Precautions Log Roll,No Twisting,Limit Bending,Lifting Restriction of 10 lbs,Gait Belt above Incisional Area M3 OT- IP Subjective and Pain Start: 09/10/22 12:22 Freq: Status: Active Protocol: Document 09/10/22 09:08 [facility] (Rec: 09/10/22 12:44 [facility] [id number]) OT- Subjective Occupational Therapy Visit Type Type Initial Evaluation Visit Start Time 09:08 Visit Stop Time 09:44 Total Visit Minutes 36 Occupational Therapy Visit Comments Patient Comments Pt agreed to get up. Patient/Caregiver Goals To go home OT Pain Assessment Pain When Pain Assessed During Mobility Pain Present Pain Present Pain Reported Location back Intensity 7 Scale Used Numeric (0 - 10) M4 OT- IP ADL's Start: 09/10/22 12:22 Freq: Status: Active Protocol: Document 09/10/22 09:08 [facility] (Rec: 09/10/22 12:44 [facility] [id number]) OT [id number] Comments OT Self-Feeding Comments not at meal time OT ADL-Grooming Comments OT Grooming Comments No performed. OT ADL-Oral Care General Eval Oral Care Ability Independent Comments Oral Care Comments Pt able to rinse his mouth out after cues of best to spit into a cup versus bending at his back. OT ADL-Dressing General Eval Lower Body Dressing Ability Maximum Assistance Areas Needing Assistance Socks Comments OT Dressing Comments Pt states has a sock aid but does not have a corn chip maker which he plans on picking up. OT ADL-Toileting Comments OT Toileting Comments Pt states has a toilet paper aid her uses at home. OT ADL-Bathing Comments OT Bathing Comments Pt states to shower at home and has a tub bench at home. M5 OT- IP IADL's Start: 09/10/22 12:22 Freq: Status: Active Protocol: Document 09/10/22 09:08 [facility] (Rec: 09/10/22 12:44 [facility] [id number]) OT-Instrumental Activities of Daily Living Deficits IADL Deficits Identified No Deficits Home Safety Awareness Awareness of Need for Assistance at Home Good Awareness Ability to Problem Solve Emergency Able to Problem Solve Situations Home Safety Comments Pt states has supportive and daughter to assist with his needs. M6 OT- IP Functional Cognition Start: 09/10/22 12:22 Freq: Status: Active Protocol: Document 09/10/22 09:08 [facility] (Rec: 09/10/22 12:44 [facility] [id number]) Cognitive Factors Limiting Selfcare Function Cognitive Ability Level of Alertness Alert Patient Orientation Name,Place,Situation Attention Span Ability Capable of Focused Attention, Capable of Sustained Attention Ability to Follow Commands Able to Follow One Step Commands Memory Description No Deficits Noted Safety Awareness No Deficits Noted Problem Solving Ability No deficits Noted Cognitive Comments Cognitive Assessment Comments Pt aware of his back precautions and able to follow commands for ADL and mobility needs. OT- Vision and Hearing OT- Hearing Assessment OT- Hearing Assessment WFL OT- Vision Assessment Visual Acuity Glasses For Reading M7 OT- IP Mobility and Balance Start: 09/10/22 12:22 Freq: Status: Active Protocol: Document 09/10/22 09:08 [facility] (Rec: 09/10/22 12:44 [facility] [id number]) OT- Bed Mobility Assessment Supine to Sit Supine to Sit Assist Contact Guard Assistance OT-Transfer Assessment Sit to and From Stand Sit to and from Stand Contact Guard Assistance Transfers Transfer Ability Contact Guard Assistance Technique Transfer Destination Bed,Chair Transfer Technique Stand Step Pivot Comments Mobility Comments CGA to help guide pt to get upright with his trunk, CGA to stand to FWW. OT- Balance Assessment Sitting Balance and Reactions Static Sitting Balance Ability Good Dynamic Sitting Balance Ability Fair Standing Balance and Reactions Static Standing Balance Ability Good Dynamic Standing Balance Ability Fair M8 OT- IP Objective Assessments Start: 09/10/22 12:22 Freq: Status: Active Protocol: Document 09/10/22 09:08 [facility] (Rec: 09/10/22 12:44 [facility] [id number]) OT-Muscle Tone Assessment Muscle Tone WNL Yes M9 OT- IP Assessment and Plan Start: 09/10/22 12:22 Freq: Status: Active Protocol: Document 09/10/22 09:08 [facility] (Rec: 09/10/22 12:44 [facility] [id number]) OT Summary Assessment and Plan Potential Rehabilitation Potential Good Analytic Complexity at Evaluation Low Summary OT Impairments Pain,Functional Mobility, Dressing,Toileting,Bathing, Toilet Transfers,Shower Transfers,Activity Tolerance Progress Towards Goals Progressing Toward Goals,Slow Progress due to Pain Assessment Summary Pt low complexity and main barrier are pain and decreased activity tolerance and O2 on 3.5L on on 96% and on RA dropped to 88% and recovered after several minutes to above 90%. Pt looking to go home with family to assist when medically stable. Goals Dressing Goal Independent,Long Handled Shoe Horn,Combination Presser,Sock Aid Toileting Goal Independent,Toilet Paper Aid Bathing Goal Minimal Assistance Toilet Transfer Goal Independent Shower Transfer Goal Contact Guard Assistance Days to Meet Goals 5 Frequency of Treatment Frequency Of Treatment Once a Day Treatment Plan OT Treatment Plan ADL Training,Functional Mobility,Patient/Family Education,Discharge Planning Discharge Recommendations OT Discharge Recommendations Home with Assistance Home Equipment Needs corn chip maker Transportation Needs at Discharge Private Vehicle
[2022-09-10 12:00] VITALS: BP 131/56; PULSE 77; RESP 19; TEMP 36.7; O2SAT 98
--- NOTE | 2022-09-10 12:58 | PT.IIE ---
Current Diagnoses Spinal stenosis, lumbosacral region (09/09/22) Postlaminectomy syndrome, not elsewhere classified (09/09/22) Surgery Performed Operation Date: 09/09/22 13:45 Actual Procedures p L5-S1 TLIF - Irish Alejandro MD Surgical History (Last Reviewed 09/10/22 @ 07:50 by Vinny Corona PA-C) History of arthroplasty of right knee (~2008) History of arthroscopy of left shoulder (02/13/20) History of bladder surgery History of bone graft History of lumbar spinal fusion History of total right knee replacement (06/17/20) Hx of appendectomy Hx of arthroscopy of left knee Hx of arthroscopy of right knee Hx of cervical spine surgery Hx of eye surgery Hx of foot surgery Hx of hernia repair Hx of sinus surgery Hx of tonsillectomy S/P TURP Medical History (Last Reviewed 09/10/22 @ 07:50 by Vinny Corona PA-C) SAULO (acute kidney injury) Amputated toe of left foot (2021) Asthma Bladder cancer (~05/2010) BPH w urinary obs/LUTS CKD stage G3a/A3, GFR 45-59 and albumin creatinine ratio >300 mg/g Diabetes mellitus, type II DVT (deep venous thrombosis) (2020) GERD (gastroesophageal reflux disease) Gout History of COVID-19 (04/03/22) HLD (hyperlipidemia) HTN (hypertension) Hyperkalemia Hypoxemia JESSIE on CPAP PVD (peripheral vascular disease) Right-sided carotid artery disease RLS (restless legs syndrome) TIA (transient ischemic attack) Physical Therapy Inpatient Evaluation/Re-Eval M1 PT/OT-IP Prior Functional Status Start: 09/10/22 11:35 Freq: NEEDED Status: Active Protocol: Document 09/10/22 12:30 LRN (Rec: 09/10/22 12:58 LRN [id number]) Medical Review Prior Functional Status Mobility and Gait Independent gait with cane occasionally Activities of Daily Living and IADL's Independent with R hip/LE pain . Social History Household Members spouse,family Living Arrangements House Number of Floors (Floors) Two Floors Number of Stairs To Enter/Railing? 7 Home Environment High Toilet,Walk in Shower,Tub /Shower Home Equipment Front Wheel Walker,Straight Cane,Raised Toilet Seat w/ Armrests,Tub Transfer Bench, Hand Held Shower Employment Status Retired Additional Social History Comment Has an adjustable bed. M2 PT-IP Current Condition Start: 09/10/22 11:35 Freq: NEEDED Status: Active Protocol: Document 09/10/22 12:30 LRN (Rec: 09/10/22 12:58 LRN [id number]) Physical Therapy Current Condition Current Condition Evaluation Date 09/10/22 Treatment Diagnosis L5-S1 TLIF Onset Date 09/09/22 M3 PT-IP Subjective Start: 09/10/22 11:35 Freq: NEEDED Status: Active Protocol: Document 09/10/22 12:30 LRN (Rec: 09/10/22 12:58 LRN [id number]) Subjective Physical Therapy Visit Type Type Initial Evaluation Visit Start Time 11:50 Visit Stop Time 12:25 Total Visit Minutes 35 Physical Therapy Visit Comments Patient Comments Pt reports at start of therapy that he just got back to bed and had been sitting for 1.5 hrs. Patient Goals Pt goal is to go home. Therapy Pain Assessment Pain When Pain Assessed At Rest Pain Present Pain Present Pain Reported Location back Intensity 9 Scale Used Numeric (0 - 10) M4 PT-IP Mobility and Gait Start: 09/10/22 11:35 Freq: NEEDED Status: Active Protocol: Document 09/10/22 12:30 LRN (Rec: 09/10/22 12:58 LRN [id number]) PT-Bed Mobility Assessment Rolling Type of Rolling Log Rolling Level of Assist Independent Supine to Sit Supine to Sit Contact Guard Assistance,1 Person Assistance PT-Transfer Assessment Sit to and From Stand Sit to and from Stand Independent,Standby Assistance Equipment Transfer Assistive Device Bed Rail,Front Wheeled Walker Orthotic/Prosthetic Devices or Brace: No Transfers Transfer Destination Chair Transfer Technique Walked to chair Transfer Ability Level of Assist Independent,Standby Assistance Comments Mobility Comments V. cuing to not force bend with transfers. Assist sup> sit to avoid pt rotation of trunk. Gait Assessment Gait Gait Assistance Required: Independent Distance (Feet) 138 Able to Maintain Weight Bearing Status Yes During Gait Gait Deviations General Gait Pattern Decreased Stride Length,Wide Based Gait Factors Limiting Gait Function Factors Limiting Gait Function Decreased Activity Tolerance, Pain,Poor Balance Comments Gait Comments Pt required FWW for stability with gait. Stair Climbing Assessment Evaluation Level of Assist On Stairs Independent,Standby Assistance Devices Stair Climbing Assistive Devices Left Railing Technique/Endurance Stair Climbing Direction Ascend and Descend Stair Climbing Technique Step Over Step Number of Steps Climbed 3 Query Text: Stair Climbing Set # Repetitions (reps) 2 Comments Stair Climbing Comments Pt used railing as if it was the condition he has at home with his steps. Pt demonstrated how at home he leans on his forearms to ambulate stairs. PT-Balance Assessment Sitting Balance and Reactions Static Sitting Balance Ability Normal Dynamic Sitting Balance Ability Normal Standing Balance and Reactions Static Standing Balance Ability Good Dynamic Standing Balance Ability Good Device Used FWW M5 PT-IP Objective Assessments Start: 09/10/22 11:35 Freq: NEEDED Status: Active Protocol: Document 09/10/22 12:30 LRN (Rec: 09/10/22 12:58 LRN [id number]) Orientation Orientation/Cognition Level of Alertness Alert Orientation Name,Month,Date,Year,Place, Situation Language Function Ability No Deficits Noted Safety Awareness Understands Safety Issues Memory Description No Deficits Noted Comments Pt able to recall 3/3 precautions. NO twisting, no forced bending, lifting. Gross Range of Motion Upper Extremity ROM Assessment Within Functional Limits Lower Extremity ROM Assessment Within Functional Limits Strength Upper Extremity Strength Assessment Within Functional Limits Lower Extremity Strength Assessment Within Functional Limits Muscle Tone Muscle Tone WNL Yes M6 PT-IP Treatment Start: 09/10/22 11:35 Freq: NEEDED Status: Active Protocol: Document 09/10/22 12:30 LRN (Rec: 09/10/22 12:58 LRN [id number]) Physical Therapy Treatment Exercises Exercises Ankle Pumps Education Education Provided Precautions Equipment Issued Equipment Type and Company FWW, Gait Belt Other Treatments Other Treatment Performed Reviewed movement precautions. Deep Breathing with 3LO2 via nc to improve SpO2 from 88% to 84% in sitting after gait. Ice Pack was placed on sides of back in sitting for pain relief while pt was served lunch. The pt was left in sitting with nursing aware with 3LO2 via nc, tray table with lunch in front of him and call button within reach. Requested nursing limit pt sit time to 30 minutes. M7 PT-IP Assessment and Plan Start: 09/10/22 11:35 Freq: NEEDED Status: Active Protocol: Document 09/10/22 12:30 LRN (Rec: 09/10/22 12:58 LRN [id number]) PT Summary Assessment and Plan Potential Rehabilitation Potential Excellent Status of Condition at Evaluation Evolving Summary Impairments Pain,Transfers,Activity Tolerance Assessment Summary Pt is a 67 yo male, day 1 post op L5-S1 fusion (TLIF). He had no difficulty getting out of bed, but needed assist to sit at EOB to avoid twisting at the trunk. His pain is quite high to start at 9/10, but shows very little pain behaviors. Pain medication given prior to therapy appeared beneficial with no signs of pain behavior at end of therapy. Pt's SPO2 level decreased on RA from 96% to 88 % after gait. Return to 94% on 3LO2 via nc took ~1 minute. The pt Goals Bed Mobility Goal Independent,Standby Assistance Transfer Goal Independent,Standby Assistance Gait Goal Independent,Standby Assistance Gait Distance 100 ft Other Goals Pt able to tolerate ambulation with O2 not needed. Frequency of Treatment Frequency Of Treatment Once a Day Treatment Plan Physical Therapy Treatment Plan Transfer Training,Gait Training,Hot or Cold Pack Other Recommendations and Next Treatment limit sitting to no greater Focus than 30 minutes. Precautions Lumbar Precautions No Twisting,Limit Bending,Gait Belt above Incisional Area Other Precautions Limited lifting. Weight Bearing Status Weight Bearing Status Full Weight Bearing Recommendations To Nursing Amount of Assist Needed Standby Assistance,1 Person Assist Discharge Recommendations PT Discharge Recommendations Home with Assistance Other Discharge Recommendations Limit sitting to 30 minutes. Transportation Needs at Discharge Private Vehicle
--- NOTE | 2022-09-10 14:16 | CM.DANOTE ---
Discharge Planning/Care Management CM Discharge Assessment Start: 09/10/22 14:09 Freq: Status: Active Protocol: Document 09/10/22 14:10 MALLORY (Rec: 09/10/22 14:16 MALLORY [id number]) Discharge Planning Assessment Assigned Laboratory Asst LA Mancilla DPOA/Assigned Designee Name Regla Donovan, spouse Contact Information [phone] home [phone] cell Advance Directives? Yes Advance Directives on File No History Provided By Patient,Medical Record Prior Living Arrangements House Household Members spouse,family Type of transporation used prior to Drives own vehicle admit Independent with ADL's Yes Is patient alert and oriented? Yes Patient/Family Preference OP PT Therapy Barriers to Discharge No Comment Patient is 67yo male resident of [place], s/p TLIF by Dr Alejandro Patient is indp at baseline; patient planned to discharge home w/spouse and daughter and has been cleared by therapies for this plan No CM needs identified at this time; home w/family to assist with close outpatient follow up Discharge Plan Home Transportation Arrangement Family Referrals Initiated None needed
--- NOTE | 2022-09-10 14:36 | PC.NURSE ---
Patient taken to preop this afternoon at appoximately 1430 via w/ch
[2022-09-10] MEDS: INSULIN GLARGINE 100 UNIT/ML 3ML PEN 120 UNIT SUBCUT (17:40)
[2022-09-10] MEDS: PRAMIPEXOLE 0.25 MG TABLET 0.75 MG PO (17:46)
[2022-09-10 19:40] VITALS: BP 123/46; PULSE 84; RESP 19; O2SAT 94
[2022-09-10] MEDS: SENNOSIDES 8.6 MG TABLET 17.2 MG PO (20:49)
[2022-09-10] MEDS: ATORVASTATIN 20 MG TABLET 10 MG PO (20:50)
[2022-09-10] MEDS: polyethylene glycoL 3350 17 GM POWD.PACK PO (20:50)
[2022-09-11 00:10] VITALS: BP 111/43; PULSE 77; RESP 19; TEMP 36.7; O2SAT 92
[2022-09-11 04:00] VITALS: BP 143/49; PULSE 83; RESP 24; TEMP 37.1; O2SAT 94
[2022-09-11] MEDS: HYDROMORPHONE 0.5 MG INJ IV (05:44)
[2022-09-11] MEDS: PANTOPRAZOLE DR 20 MG TABLET PO (05:44)
[2022-09-11] MEDS: OXYCODONE IR 10 MG TABLET PO ×4 (05:45→20:17)
--- NOTE | 2022-09-11 08:04 | PC.NURSE ---
Addendum entered by Amarilis Allen R.N. 09/11/22 19:18: Patient has refused most of his meals today, he did take bites at lunch. BS have all been wnl. Patient stated earlier. I am going to be an ass now, and grumpy. Explained to patient that this RN would be stepping out if he did not need any assistance at that time. He is now resting comfortably and has been updated on patients condition today. Addendum entered by Amarilis Allen R.N. 09/11/22 18:05: Patient takes his oxygen off and then gets confused and forgets what he wants to say. He knows that he is in in the hospital, he is working decent with physical therapy but is sleepy and falls asleep easily. Blood Sugar at dinner 101. Patient refused his dinner and his 120u of insulin was not given. Allen just emptied and patient had 275cc of dark colored urine out. Explained to him that he should try and drink some water but he is not interested. Resting now. updated on patients condition. If he does well tomorrow, he will most likely get home. Addendum entered by Amarilis Allen R.N. 09/11/22 15:12: Patient has cleared up some but is still really sleepy. He is not going to go home today, will most likely be discharged tomorrow. He is complaining of discomfort, repositioned and we will give him some pain medication. Addendum entered by Amarilis Allen R.N. 09/11/22 12:31: Patients lunch time blood sugar 109. Patient is sitting up in the chair and he is sleepy. He will converse but then goes right back to sleep and states that he is awake and can hear. Patient may discharge home today, awaiting to see if his mentation clears up more. Addendum entered by Amarilis Allen R.N. 09/11/22 09:22: Patient having a hard time expressing his words and getting out a conversation. He is alert and oriented x4, but words are not coming to him well. PA is aware, and is going to talk to Dr. Alejandro about this. Patient does have a hx of tia in the past. Patient would like to talk to his and then we will check on him again. Addendum entered by Amarilis Allen R.N. 09/11/22 08:33: Patient just medicated with oxycodone for comfort, he is sitting up at the side of the bed eating his breakfast. Original Note: Patients blood sugar this am 114. He is getting ready to eat breakfast and denies pain at this time. Patient will be discharging home today, he will be getting oxycodone for his discomfort to back. Dressing is cdi to mid lower back, he is a one person assist to ambulate and work with physical therapy. Comfortable at this time.
[2022-09-11] MEDS: allopurinoL 100 MG TABLET 200 MG PO (08:19)
[2022-09-11] MEDS: ASPIRIN EC 81 MG TABLET PO ×2 (08:19→20:17)
[2022-09-11] MEDS: AMLODIPINE 5 MG TABLET 10 MG PO (08:19)
[2022-09-11] MEDS: carvediloL 12.5 MG TABLET 25 MG PO ×2 (08:19→20:17)
[2022-09-11] MEDS: DOCUSATE 100 MG CAPSULE PO ×2 (08:20→20:17)
[2022-09-11] MEDS: MAGNESIUM OXIDE 400 MG TABLET 1200 MG PO ×2 (08:20→20:18)
[2022-09-11] MEDS: FUROSEMIDE 40 MG TABLET PO ×2 (08:20→20:17)
[2022-09-11] MEDS: METFORMIN HCL 500 MG TABLET 1000 MG PO ×2 (08:20→20:18)
[2022-09-11] MEDS: TERAZOSIN 5 MG CAPSULE PO ×2 (08:20→20:17)
[2022-09-11] MEDS: lisinopriL 20 MG TABLET PO (08:20)
[2022-09-11 09:07] VITALS: BP 162/58; PULSE 84; TEMP 37.2; O2SAT 84
--- NOTE | 2022-09-11 10:12 | PT.IPTN ---
Current Diagnoses Spinal stenosis, lumbosacral region (09/09/22) Postlaminectomy syndrome, not elsewhere classified (09/09/22) Surgery Performed Operation Date: 09/09/22 13:45 Actual Procedures p L5-S1 TLIF - Irish Alejandro MD Physical Therapy Treatment Note M2 PT-IP Current Condition Start: 09/10/22 11:35 Freq: NEEDED Status: Active Protocol: Document 09/10/22 12:30 LRN (Rec: 09/10/22 12:58 LRN [id number]) Physical Therapy Current Condition Current Condition Evaluation Date 09/10/22 Treatment Diagnosis L5-S1 TLIF Onset Date 09/09/22 M3 PT-IP Subjective Start: 09/10/22 11:35 Freq: NEEDED Status: Active Protocol: Document 09/11/22 11:04 TS (Rec: 09/11/22 11:57 TS [id number]) Subjective Physical Therapy Visit Type Type Treatment Note Visit Start Time 10:12 Visit Stop Time 10:50 Total Visit Minutes 38 Notes Vitals: BP sitting 126/48 Physical Therapy Visit Comments Patient Goals Pt goal is to go home. M4 PT-IP Mobility and Gait Start: 09/10/22 11:35 Freq: NEEDED Status: Active Protocol: Document 09/11/22 11:04 TS (Rec: 09/11/22 11:57 TS [id number]) PT-Bed Mobility Assessment Rolling Type of Rolling Log Rolling Level of Assist Standby Assistance,Contact Guard Assistance Supine to Sit Supine to Sit Contact Guard Assistance Scooting Scooting to Edge of Bed Standby Assistance PT-Transfer Assessment Sit to and From Stand Sit to and from Stand Contact Guard Assistance Equipment Transfer Assistive Device Bed Rail,Front Wheeled Walker Orthotic/Prosthetic Devices or Brace: No Transfers Transfer Destination Chair Transfer Technique Walked to chair Transfer Ability Level of Assist Standby Assistance Comments Mobility Comments Pt found resting in bed on 4L of O2 96%, agreeable to PT session. Pt performed log roll SBA with HOB raised, cues for handplacement on rails. Scooted EOB SBA for cues for BUE support and feet flat. Sit to stand x2 CGA cues for weight forward and BUE support . Stand to sit SBA with cues for reaching UE's to arms of chair. Gait Assessment Gait Gait Assistance Required: Standby Assistance Distance (Feet) 50 Able to Maintain Weight Bearing Status Yes During Gait Gait Deviations General Gait Pattern Decreased Stride Length,Wide Based Gait Factors Limiting Gait Function Factors Limiting Gait Function Decreased Activity Tolerance, Pain,Poor Balance Comments Gait Comments Pt ambulated ~50' in room and into hallway, SBA with WBOS and step to gait. Stair Climbing Assessment Evaluation Level of Assist On Stairs Contact Guard Assistance Devices Stair Climbing Assistive Devices Left Railing Technique/Endurance Stair Climbing Direction Ascend and Descend Stair Climbing Technique Step to Step Number of Steps Climbed 2 Stair Climbing Set # Repetitions (reps) 2 Comments Stair Climbing Comments Pt performed stairs x2, CGA, LUE handrail assist. Second attempt pt with minor LOB forward requiring support of RUE on FWW. PT-Balance Assessment Sitting Balance and Reactions Static Sitting Balance Ability Normal Dynamic Sitting Balance Ability Normal Standing Balance and Reactions Static Standing Balance Ability Good Dynamic Standing Balance Ability Fair Device Used FWW M5 PT-IP Objective Assessments Start: 09/10/22 11:35 Freq: NEEDED Status: Active Protocol: Document 09/10/22 12:30 LRN (Rec: 09/10/22 12:58 LRN [id number]) Orientation Orientation/Cognition Level of Alertness Alert Orientation Name,Month,Date,Year,Place, Situation Language Function Ability No Deficits Noted Safety Awareness Understands Safety Issues Memory Description No Deficits Noted Comments Pt able to recall 3/3 precautions. NO twisting, no forced bending, lifting. Gross Range of Motion Upper Extremity ROM Assessment Within Functional Limits Lower Extremity ROM Assessment Within Functional Limits Strength Upper Extremity Strength Assessment Within Functional Limits Lower Extremity Strength Assessment Within Functional Limits Muscle Tone Muscle Tone WNL Yes M6 PT-IP Treatment Start: 09/10/22 11:35 Freq: NEEDED Status: Active Protocol: Document 09/11/22 11:04 TS (Rec: 09/11/22 11:57 TS [id number]) Physical Therapy Treatment Education Education Provided Precautions Equipment Issued Equipment Type and Company FWW, Gait Belt M7 PT-IP Assessment and Plan Start: 09/10/22 11:35 Freq: NEEDED Status: Active Protocol: Document 09/11/22 11:04 TS (Rec: 09/11/22 11:57 TS [id number]) PT Summary Assessment and Plan Potential Rehabilitation Potential Good Status of Condition at Evaluation Evolving Summary Impairments Pain,Transfers,Activity Tolerance Assessment Summary Pt performed log roll SBA with HOB raised, cues for handplacement on rails. Scooted EOB SBA for cues for BUE support and feet flat. Sit to stand x2 CGA cues for weight forward and BUE support . Stand to sit SBA with cues for reaching UE's to arms of chair. Pt on 4L of o2 a@96%, without o2 decreased to 85% on RA, pt denied any SOB or dizziness. Pt was very lethargic at start of session, slightly improved during mobility. He recalled 3/3 of spinal precautions. Performed stairs x2 with CGA/Karen for Lob forward on 2nd attempt requiring BUE support on handrail and FWW. PT recommends return home with assist from family and HHPT when medically stable. Goals Bed Mobility Goal Independent,Standby Assistance Transfer Goal Independent,Standby Assistance Gait Goal Independent,Standby Assistance Gait Distance 100 ft Other Goals Pt able to tolerate ambulation with O2 not needed. Frequency of Treatment Frequency Of Treatment Once a Day Treatment Plan Physical Therapy Treatment Plan Transfer Training,Gait Training,Hot or Cold Pack Other Recommendations and Next Treatment limit sitting to no greater Focus than 30 minutes. Precautions Lumbar Precautions No Twisting,Limit Bending,Gait Belt above Incisional Area Other Precautions Limited lifting. Weight Bearing Status Weight Bearing Status Full Weight Bearing Recommendations To Nursing Amount of Assist Needed Standby Assistance,1 Person Assist Discharge Recommendations PT Discharge Recommendations Home with Assistance Other Discharge Recommendations Limit sitting to 30 minutes. Transportation Needs at Discharge Private Vehicle
--- NOTE | 2022-09-11 11:47 | OT.IP.TRT ---
Current Diagnoses Spinal stenosis, lumbosacral region (09/09/22) Postlaminectomy syndrome, not elsewhere classified (09/09/22) Surgery Performed Operation Date: 09/09/22 13:45 Actual Procedures p L5-S1 TLIF - Irish Alejandro MD Occupational Therapy Treatment Note M2 OT-IP Current Condition Start: 09/10/22 12:22 Freq: Status: Active Protocol: Document 09/10/22 09:08 [facility] (Rec: 09/10/22 12:44 [facility] [id number]) Occupational Therapy Current Condition Current Condition Evaluation Date 09/10/22 Treatment Diagnosis S/p L5-S1 TLIF Diagnosis Onset Date 09/09/22 Post Operative Precautions Lumbar Precautions Log Roll,No Twisting,Limit Bending,Lifting Restriction of 10 lbs,Gait Belt above Incisional Area M3 OT- IP Subjective and Pain Start: 09/10/22 12:22 Freq: Status: Active Protocol: Document 09/11/22 11:48 [facility] (Rec: 09/11/22 12:04 [facility] [id number]) OT- Subjective Occupational Therapy Visit Type Type Treatment Note Visit Start Time 11:23 Visit Stop Time 11:47 Total Visit Minutes 24 Occupational Therapy Visit Comments Patient Comments Pt very drowsy and hard to arouse for OT treatment. Patient/Caregiver Goals TO go home. OT Pain Assessment Pain When Pain Assessed At Rest Pain Present Pain Present Pain Reported Location back Intensity 9 Scale Used Numeric (0 - 10) M4 OT- IP ADL's Start: 09/10/22 12:22 Freq: Status: Active Protocol: Document 09/10/22 09:08 [facility] (Rec: 09/10/22 12:44 [facility] [id number]) OT [id number] Comments OT Self-Feeding Comments not at meal time OT ADL-Grooming Comments OT Grooming Comments No performed. OT ADL-Oral Care General Eval Oral Care Ability Independent Comments Oral Care Comments Pt able to rinse his mouth out after cues of best to spit into a cup versus bending at his back. OT ADL-Dressing General Eval Lower Body Dressing Ability Maximum Assistance Areas Needing Assistance Socks Comments OT Dressing Comments Pt states has a sock aid but does not have a taxicab coordinator which he plans on picking up. OT ADL-Toileting Comments OT Toileting Comments Pt states has a toilet paper aid her uses at home. OT ADL-Bathing Comments OT Bathing Comments Pt states to shower at home and has a tub bench at home. M5 OT- IP IADL's Start: 09/10/22 12:22 Freq: Status: Active Protocol: Document 09/10/22 09:08 [facility] (Rec: 09/10/22 12:44 [facility] [id number]) OT-Instrumental Activities of Daily Living Deficits IADL Deficits Identified No Deficits Home Safety Awareness Awareness of Need for Assistance at Home Good Awareness Ability to Problem Solve Emergency Able to Problem Solve Situations Home Safety Comments Pt states has supportive and daughter to assist with his needs. M6 OT- IP Functional Cognition Start: 09/10/22 12:22 Freq: Status: Active Protocol: Document 09/11/22 11:48 [facility] (Rec: 09/11/22 12:04 [facility] [id number]) Cognitive Factors Limiting Selfcare Function Cognitive Ability Level of Alertness Drowsy Patient Orientation Name Attention Span Ability Unable to Focus,Unable to Sustain Attention Ability to Follow Commands Able to Follow One Step Commands with Increased Time, Able to Follow One Step Commands with Repetition Cognitive Comments Cognitive Assessment Comments Pt having trouble to stay awake. Pt not able to states his precautions, even after multiple repetitions. Pt continuously falling asleep. M7 OT- IP Mobility and Balance Start: 09/10/22 12:22 Freq: Status: Active Protocol: Document 09/11/22 11:48 [facility] (Rec: 09/11/22 12:04 [facility] [id number]) OT-Transfer Assessment Comments Mobility Comments Pt found on RA on the room and O2 72% and replaced the O2 on and taking 6 minutes to recover up to 90% and then eventually up to 95%, nursing informed. M8 OT- IP Objective Assessments Start: 09/10/22 12:22 Freq: Status: Active Protocol: Document 09/10/22 09:08 [facility] (Rec: 09/10/22 12:44 [facility] [id number]) OT-Muscle Tone Assessment Muscle Tone WNL Yes M9 OT- IP Assessment and Plan Start: 09/10/22 12:22 Freq: Status: Active Protocol: Document 09/11/22 11:48 [facility] (Rec: 09/11/22 12:04 [facility] [id number]) OT Summary Assessment and Plan Potential Rehabilitation Potential Good Analytic Complexity at Evaluation Low Summary OT Impairments Pain,Functional Cognition, Functional Mobility,Dressing, Toileting,Bathing,Toilet Transfers,Shower Transfers, Activity Tolerance Progress Towards Goals Slow Progress due to Pain,Slow Progress due to Activity Tolerance,Slow Progress due to Cognition Assessment Summary Pt very hard to arouse for OT treatment and found without his O2 while in the recliner and readings at 72% and after 6 minutes on 4L able to get back to 90% and then eventually 95%. Pt very groggy , drowsy and not remembering his back precautions at this time. Pt may benefit from home health and assist from family when medically stable. Goals Dressing Goal Independent,Long Handled Shoe Horn,Drawer In Hand,Sock Aid Toileting Goal Independent,Toilet Paper Aid Bathing Goal Minimal Assistance Toilet Transfer Goal Independent Shower Transfer Goal Contact Guard Assistance Days to Meet Goals 5 Frequency of Treatment Frequency Of Treatment Once a Day Treatment Plan OT Treatment Plan ADL Training,Functional Mobility,Patient/Family Education,Discharge Planning Discharge Recommendations OT Discharge Recommendations Home with Assistance,Home Health Home Equipment Needs taxicab coordinator Transportation Needs at Discharge Private Vehicle
--- NOTE | 2022-09-11 12:14 | PT-IP ANOTE ---
Spoke with Familia Humphreys PTA regarding pt's treatment today. Pt appears to be having more difficulty with mobility today; therefore pt treatments per day will be changed to BID.
--- NOTE | 2022-09-11 12:18 | PM.DS.1 ---
History of Present Illness History of Present Illness Date Patient Seen: 09/11/22 Time Patient Seen: 10:30 Chief complaint: TLIF Narrative: Patient is awake sitting up in his chair this morning. He states he worked with PT though he can not tell me what he did. He states he wants to eat his breakfast and talk to his on the phone. He plans to discharge to home with assistance from his and daughter. Discharge Providers Provider Date of admission: 09/09/22 11:53 Discharge Date: 09/11/22 Primary care physician: Javi Del Toro MD Consults: 09/09/22 17:56 Consult to Occupational Therapy Evaluate & Treat Comment: Physician Instructions: Evaluate and treat Consult to Physical Therapy Evaluate & Treat Comment: Physician Instructions: Evaluate and Treat Discharge provider: Liseth Hernandez PA-C Exam Vital Signs (past 8 hours): - 09/11/22 09:07 Temperature 98.9 F Pulse Rate 84 Blood Pressure 162/58 H Pulse Oximetry 84 L Oxygen Flow Rate 4 Fraction of Inspired Oxygen 36 SaO2/FiO2 Ratio 342 Oxygen Delivery Method BiPAP Oxygen Flow Rate 4 Objective Labs 09/10/22 05:40 PFSH Medical History SAULO (acute kidney injury) Amputated toe of left foot (2021) Asthma Bladder cancer (~05/2010) BPH w urinary obs/LUTS CKD stage G3a/A3, GFR 45-59 and albumin creatinine ratio >300 mg/g Diabetes mellitus, type II DVT (deep venous thrombosis) (2020) GERD (gastroesophageal reflux disease) Gout History of COVID-19 (04/03/22) HLD (hyperlipidemia) HTN (hypertension) Hyperkalemia Hypoxemia JESSIE on CPAP PVD (peripheral vascular disease) Right-sided carotid artery disease RLS (restless legs syndrome) TIA (transient ischemic attack) Surgical History History of arthroplasty of right knee (~2008) History of arthroscopy of left shoulder (02/13/20) History of bladder surgery History of bone graft History of lumbar spinal fusion History of total right knee replacement (06/17/20) Hx of appendectomy Hx of arthroscopy of left knee Hx of arthroscopy of right knee Hx of cervical spine surgery Hx of eye surgery Hx of foot surgery Hx of hernia repair Hx of sinus surgery Hx of tonsillectomy S/P TURP Social History household members: spouse and family Smoking Status: Former smoker alcohol intake: current Discharge Plan Discharge orders & Medications Prescriptions: No Action allopurinol 100 mg tablet 200 mg PO DAILY furosemide 40 mg Tablet 40 mg PO BID terazosin 5 mg Capsule 5 mg PO BID insulin glargine [Lantus U-100 Insulin] 100 unit/mL Solution 120 unit SUBCUT QPM Patient Comments: pt reports took 80 units amlodipine 10 mg Tablet 10 mg PO QAM simvastatin 20 mg Tablet 20 mg PO BEDTIME metformin 1,000 mg Tablet 1,000 mg PO BID omeprazole 20 mg Capsule,Delayed Release(Dr/Ec) 20 mg PO BID allopurinol 300 mg Tablet 300 mg PO DAILY albuterol sulfate [ProAir HFA] 90 mcg/actuation Hfa Aerosol Inhaler 2 puff INHALATION QID PRN (Reason: Nasal Congestion) oxycodone 5 mg Tablet 10 mg PO Q6H PRN (Reason: Pain (Scale Score 1-3)) pramipexole 0.75 mg Tablet 0.75 mg PO QPM oxycodone 5 mg Tablet 5 mg PO Q4H PRN (Reason: Pain, Moderate (4-6)) Qty: 40 0RF testosterone cypionate 200 mg/mL Kit 200 mg IM Q2W insulin lispro [Humalog KwikPen Insulin] 100 unit/mL Insulin Pen 0 - 40 unit SUBCUT TID PRN (Reason: Sliding scale for hyperglycemia) Patient Comments: pt reports took 10 units carvedilol 25 mg Tablet 25 mg PO BID Rx Instructions: must administer with a meal/food lisinopril 20 mg Tablet 20 mg PO QAM magnesium oxide 400 mg magnesium Tablet 1,200 mg PO BID aspirin 81 mg Capsule 81 mg PO DAILY Follow up/Referrals: Javi Del Toro MD [Primary Care Provider] - Irish Alejandro MD [Physician] - As previously scheduled (Follow up w/ Vinny Corona PA-C, on 09/23/2022 @ 2:00 pm at [facility] in [place].) Diet/Activity/Treatments Diet: Diet as Tolerated Activity: No deep bending or twisting at the waist. No lifting more than 10 pounds. Cold/Heat Therapy: Heating pad to low back as needed for pain. Skin/Wound/Dressing Care Report to your healthcare provider any signs of infection, such as:: chills, fever, night sweats, unusual drainage and unusual redness Dressing: May shower; keep dressing as dry as possible. If dressing becomes wet or dirty inside, may remove and replace with clean, dry gauze. No bathing or otherwise soaking incisions. Do not apply any creams, lotions, or ointments to incisions. Discharge Data Primary Care Provider: Javi Del Toro Quality VTE Deep Vein Thrombosis/Pulmonary Embolism Present on Admission: No
--- NOTE | 2022-09-11 12:31 | P.PN_ITS ---
Subjective Subjective Interval history: Patient is awake sitting up at bedside this morning. He states he worked with PT though he can not tell me what he did. He states he wants to eat his breakfast and talk to his on the phone. He plans to discharge to home with assistance from his and daughter. When checked on later this morning patient is sitting in his chair. He remains very somnolent and falls asleep during conversation. States he would like to talk to his again. 1242: Patient is now more awake and is able to hold conversation without falling asleep. Has coherent answers using full sentences. Exam Vital Signs (past 8 hours): - 09/11/22 09:07 Temperature 98.9 F Pulse Rate 84 Blood Pressure 162/58 H Pulse Oximetry 84 L Oxygen Flow Rate 4 Fraction of Inspired Oxygen 36 SaO2/FiO2 Ratio 342 Oxygen Delivery Method BiPAP Oxygen Flow Rate 4 Narrative Exam Narrative: Awake yet somnolent, oriented to self, time, location, and situation. Intraope rative bandage clean, dry, and intact. Strength and sensation intact to bilateral lower extremities. Bilateral calves soft, compressible, nontender palpable cords or masses. Objective Labs 09/10/22 05:40 [facility] Medical History SAULO (acute kidney injury) Amputated toe of left foot (2021) Asthma Bladder cancer (~05/2010) BPH w urinary obs/LUTS CKD stage G3a/A3, GFR 45-59 and albumin creatinine ratio >300 mg/g Diabetes mellitus, type II DVT (deep venous thrombosis) (2020) GERD (gastroesophageal reflux disease) Gout History of COVID-19 (04/03/22) HLD (hyperlipidemia) HTN (hypertension) Hyperkalemia Hypoxemia JESSIE on CPAP PVD (peripheral vascular disease) Right-sided carotid artery disease RLS (restless legs syndrome) TIA (transient ischemic attack) Surgical History History of arthroplasty of right knee (~2008) History of arthroscopy of left shoulder (02/13/20) History of bladder surgery History of bone graft History of lumbar spinal fusion History of total right knee replacement (06/17/20) Hx of appendectomy Hx of arthroscopy of left knee Hx of arthroscopy of right knee Hx of cervical spine surgery Hx of eye surgery Hx of foot surgery Hx of hernia repair Hx of sinus surgery Hx of tonsillectomy S/P TURP Social History household members: spouse and family Smoking Status: Former smoker alcohol intake: current Assessment & Plan Post-op Postoperative Procedures: Procedures Operation Date: 09/09/22 13:45 Actual Procedure Side Surgeon p L5-S1 TLIF Irish Alejandro MD Postoperative day: 2 Postoperative status: doing well Postoperative status narrative: Patient is progressing as expected after 1 level TLIF 2 days ago. Postoperative plan narrative: Patient has had some trouble with expressive aphasia this morning as well as somnolence. He is more awake this afternoon and is now speaking in full sentences, able to follow the conversation. Plan is to stay 1 more night: Continue pain medication p.o., discontinue urinary catheter as patient is able to ambulate to the bathroom. Quality VTE Deep Vein Thrombosis/Pulmonary Embolism Present on Admission: No
[2022-09-11 12:53] VITALS: BP 114/51; PULSE 73; RESP 14; TEMP 36.7; O2SAT 91
--- NOTE | 2022-09-11 15:20 | PT.IPTN ---
Current Diagnoses Spinal stenosis, lumbosacral region (09/09/22) Postlaminectomy syndrome, not elsewhere classified (09/09/22) Surgery Performed Operation Date: 09/09/22 13:45 Actual Procedures p L5-S1 TLIF - Irish Alejandro MD Physical Therapy Treatment Note M2 PT-IP Current Condition Start: 09/10/22 11:35 Freq: NEEDED Status: Active Protocol: Document 09/10/22 12:30 LRN (Rec: 09/10/22 12:58 [facility] [id number]) Physical Therapy Current Condition Current Condition Evaluation Date 09/10/22 Treatment Diagnosis L5-S1 TLIF Onset Date 09/09/22 M3 PT-IP Subjective Start: 09/10/22 11:35 Freq: NEEDED Status: Active Protocol: Document 09/11/22 16:44 TS (Rec: 09/11/22 17:01 TS [id number]) Subjective Physical Therapy Visit Type Type Treatment Note Visit Start Time 15:20 Visit Stop Time 16:05 Total Visit Minutes 45 Notes Spo2 95% 4L, used portable o2 during ambulationa nd for stairs @4L Physical Therapy Visit Comments Patient Comments Pt reports he is having some pain right now, will receive pain meds after treatment. Patient Goals Pt goal is to go home. Therapy Pain Assessment Pain When Pain Assessed At Rest Pain Present Pain Present Pain Reported M4 PT-IP Mobility and Gait Start: 09/10/22 11:35 Freq: NEEDED Status: Active Protocol: Document 09/11/22 16:44 TS (Rec: 09/11/22 17:01 TS [id number]) PT-Bed Mobility Assessment Rolling Type of Rolling Log Rolling Level of Assist Moderate Assistance Supine to Sit Supine to Sit Contact Guard Assistance Scooting Scooting to Edge of Bed Minimal Assistance PT-Transfer Assessment Sit to and From Stand Sit to and from Stand Contact Guard Assistance Equipment Transfer Assistive Device Bed Rail,Front Wheeled Walker Orthotic/Prosthetic Devices or Brace: No Comments Mobility Comments Pt found resting on 4L of o2 95%, agreeable ot PT session. Pt performed logroll ModA for uprighting trunk, provided cues for pushing LUE into bed and R elbow. Seated EOB pt maintain midline CGA progressing to SBA with BUE support on bed. Pt performed sit to stand CGA with FWW, required cues for BUE support on bed and weight forward. Pt ambulated CGA/SBA ~200' to stairs with portable o2, step to gait progressed to emerging step thru gait. Pt performed stairs x6 SBA with BUE rail support, step to step. Pt required w/c back to room where he performed sit to stand x1 CGA to bed. Sit to supine ModA for LE's back into bed, cues for use of handrails for trunk positioning. Pt scooted to HOB SBA with BUE handrial support and cues for pushing heels into bed. PT was left in bed with call light nearby, RN to dispense pain medication. Gait Assessment Gait Gait Assistance Required: Standby Assistance Distance (Feet) 200 Able to Maintain Weight Bearing Status Yes During Gait Gait Deviations General Gait Pattern Decreased Stride Length,Wide Based Gait Factors Limiting Gait Function Factors Limiting Gait Function Decreased Activity Tolerance, Pain,Poor Balance Comments Gait Comments See mobility comments. Stair Climbing Assessment Evaluation Level of Assist On Stairs Standby Assistance Devices Stair Climbing Assistive Devices Left Railing,Right Railing Technique/Endurance Stair Climbing Direction Ascend and Descend Stair Climbing Technique Step to Step Number of Steps Climbed 6 Comments Stair Climbing Comments Seee mobility comments PT-Balance Assessment Sitting Balance and Reactions Static Sitting Balance Ability Good Dynamic Sitting Balance Ability Good Standing Balance and Reactions Static Standing Balance Ability Good Dynamic Standing Balance Ability Good Device Used FWW M5 PT-IP Objective Assessments Start: 09/10/22 11:35 Freq: NEEDED Status: Active Protocol: Document 09/10/22 12:30 LRN (Rec: 09/10/22 12:58 LRN [id number]) Orientation Orientation/Cognition Level of Alertness Alert Orientation Name,Month,Date,Year,Place, Situation Language Function Ability No Deficits Noted Safety Awareness Understands Safety Issues Memory Description No Deficits Noted Comments Pt able to recall 3/3 precautions. NO twisting, no forced bending, lifting. Gross Range of Motion Upper Extremity ROM Assessment Within Functional Limits Lower Extremity ROM Assessment Within Functional Limits Strength Upper Extremity Strength Assessment Within Functional Limits Lower Extremity Strength Assessment Within Functional Limits Muscle Tone Muscle Tone WNL Yes M6 PT-IP Treatment Start: 09/10/22 11:35 Freq: NEEDED Status: Active Protocol: Document 09/11/22 16:44 TS (Rec: 09/11/22 17:01 TS [id number]) Physical Therapy Treatment Education Education Provided Precautions Equipment Issued Equipment Type and Company FWW, Gait Belt M7 PT-IP Assessment and Plan Start: 09/10/22 11:35 Freq: NEEDED Status: Active Protocol: Document 09/11/22 16:44 TS (Rec: 09/11/22 17:01 TS [id number]) PT Summary Assessment and Plan Potential Rehabilitation Potential Good Status of Condition at Evaluation Evolving Summary Impairments Pain,Transfers,Activity Tolerance Assessment Summary Pt made significant progress from morning session. He was more alert and less lethargic this afternoon. He progressed his ambulation to ~200' SBA with FWW and his stairs to x6 with BUE support on handrails. He remains on o2 with 4L at 95%. He did become fatigued and could no ambulate back to room, required w/c assist. He has been motivated to imporve and work with physical therapy . PT is recommending return home with assistance from family as needed and HHPT when medically stable to improve bed mobilty, trasnfers and gait. Goals Bed Mobility Goal Independent,Standby Assistance Transfer Goal Independent,Standby Assistance Gait Goal Independent,Standby Assistance Gait Distance 100 ft Other Goals Pt able to tolerate ambulation with O2 not needed. Frequency of Treatment Frequency Of Treatment Once a Day Treatment Plan Physical Therapy Treatment Plan Transfer Training,Gait Training,Hot or Cold Pack Other Recommendations and Next Treatment limit sitting to no greater Focus than 30 minutes. Precautions Lumbar Precautions No Twisting,Limit Bending,Gait Belt above Incisional Area Other Precautions Limited lifting. Weight Bearing Status Weight Bearing Status Full Weight Bearing Recommendations To Nursing Amount of Assist Needed 1 Person Assist Discharge Recommendations PT Discharge Recommendations Home with Assistance Other Discharge Recommendations Limit sitting to 30 minutes. Transportation Needs at Discharge Private Vehicle
[2022-09-11] MEDS: PRAMIPEXOLE 0.25 MG TABLET 0.75 MG PO (17:55)
[2022-09-11 19:42] VITALS: O2SAT 91
[2022-09-11] MEDS: polyethylene glycoL 3350 17 GM POWD.PACK PO (20:16)
[2022-09-11] MEDS: MAGNESIUM HYDROXIDE 30 ML UDC PO (20:16)
[2022-09-11] MEDS: hydrOXYzine pamoate 25 MG CAPSULE PO (20:17)
[2022-09-11] MEDS: ATORVASTATIN 20 MG TABLET 10 MG PO (20:17)
[2022-09-11] MEDS: SENNOSIDES 8.6 MG TABLET 17.2 MG PO (20:18)
[2022-09-11 20:50] VITALS: BP 132/51; PULSE 88; RESP 18; TEMP 37; O2SAT 83
[2022-09-12] VITALS (12 sets, daily range): BP systolic 90–156; BP diastolic 26–54; PULSE 72–89; RESP 14–19; TEMP 35.9–37.4; O2SAT 88–95
[2022-09-12] MEDS: OXYCODONE IR 10 MG TABLET PO ×3 (00:05→13:43)
[2022-09-12] MEDS: PANTOPRAZOLE DR 20 MG TABLET PO ×2 (04:06→21:46)
[2022-09-12] MEDS: HYDROMORPHONE 0.5 MG INJ IV (04:22)
--- NOTE | 2022-09-12 06:58 | PC.NURSE ---
Pt frequently removes and refuses his oxygen therapy or CPAP with oxygen therapy bled in. He becomes hypoxic in the low 80's. He continuously complains of unrelieved pain. He attempts to reposition, but even with two people assisting plus tilting the bed to the side, he struggles to get onto his side. He was repositioned every two hours through the night.
[2022-09-12] MEDS: MAGNESIUM OXIDE 400 MG TABLET 1200 MG PO ×2 (08:48→21:17)
[2022-09-12] MEDS: lisinopriL 20 MG TABLET PO (08:48)
[2022-09-12] MEDS: AMLODIPINE 5 MG TABLET 10 MG PO (08:48)
[2022-09-12] MEDS: ASPIRIN EC 81 MG TABLET PO ×2 (08:48→21:17)
[2022-09-12] MEDS: DOCUSATE 100 MG CAPSULE PO ×2 (08:48→21:20)
[2022-09-12] MEDS: FUROSEMIDE 40 MG TABLET PO ×2 (08:48→21:18)
[2022-09-12] MEDS: METFORMIN HCL 500 MG TABLET 1000 MG PO ×2 (08:48→17:07)
[2022-09-12] MEDS: carvediloL 12.5 MG TABLET 25 MG PO ×2 (08:48→21:21)
[2022-09-12] MEDS: allopurinoL 100 MG TABLET 200 MG PO (08:48)
[2022-09-12] MEDS: ACETAMINOPHEN 325 MG TABLET 650 MG PO ×2 (08:49→21:25)
[2022-09-12] MEDS: TERAZOSIN 5 MG CAPSULE PO ×2 (08:49→21:20)
--- NOTE | 2022-09-12 10:44 | PM.DS.1 ---
History of Present Illness History of Present Illness Date Patient Seen: 09/12/22 Time Patient Seen: 10:44 Chief complaint: TLIF Narrative: Operative Date/Time/Diagnoses Date of procedure: 09/09/22 Time of procedure: 13:00 Pre-op diagnosis: 1. L5-S1 post laminectomy syndrome 2. L5-S1 spondylosis with radiculopathy Post-op diagnosis: same Procedure & Clinicians Procedure: 1. L5-S1 Postero-lateral and posterior interbody fusion 2. L5-S1 interbody cage placement. 3. L5-S1 decompressive laminectomy with bilateral facetecomies 4. L5-S1 Posterior non-segmental instrumentation 5. Whitmer of bone marrow from iliac crest 6. Utilization of microsurgical technique and operating microscope Same procedure as scheduled: Yes Indications: Patient has been having chronic back pain and worsening lumbar radiculopathy with history of laminectomy. Patient failed multiple conservative management with worsening pain weakness and numbness in his lower extremity.? Patient has been having difficulty performing activity of daily living.? After discussing risks benefits of treatment options, patient elected proceed with surgery. Surgeon: Irish Alejandro Half Backer: Celina Lamas Click Yes if Unassisted: No Anesthesia Type: General Operative Notes Closure Type: primary Specimen(s): none sent Prosthetic devices, grafts, tissues, transplants, or devices: Globus Revolve screws, Rise cage Estimated Blood Loss (mL): 50 Blood products transfused: none Discharge Providers Provider Date of admission: 09/09/22 11:53 Discharge Date: 09/12/22 Primary care physician: Javi Del Toro MD Consults: 09/09/22 17:56 Consult to Occupational Therapy Evaluate & Treat Comment: Physician Instructions: Evaluate and treat Consult to Physical Therapy Evaluate & Treat Comment: Physician Instructions: Evaluate and Treat Discharge provider: Celina Lamas PA-C Summary Hospital Course Discharge Diagnosis: L5-S1 post-laminectomy syndrome, spondylosis w/ radiculopathy; s/p L5-S1 fusion Hospital Course: Mr Donovan's hospital course was remarkable for difficulty with pain control and some intermittent confusion. On POD# 3 he was feeling well, answering questions, and following commands appropriately. His pain was well-controlled with oral medication. He was evaluated by PT throughout his stay, and they felt he was appropriate for discharge home. On my visit, he still had his lora catheter in place. Status at Discharge Cognitive/behavioral status at discharge: oriented and calm Exam Vital Signs (past 8 hours): - 09/12/22 04:57 09/12/22 08:48 09/12/22 09:06 Temperature 98.5 F 98.3 F Pulse Rate 79 89 89 Respiratory Rate 18 14 Blood Pressure 100/44 L 136/47 L 136/47 L Pulse Oximetry 91 94 Oxygen Delivery Method Oxygen Flow Rate 4 0 09/12/22 07:00 Temperature Pulse Rate Respiratory Rate Blood Pressure Pulse Oximetry Oxygen Delivery Method Nasal Cannula Oxygen Flow Rate Fraction of Inspired Oxygen 36 SaO2/FiO2 Ratio 342 Oxygen Delivery Method Nasal Cannula Oxygen Flow Rate 0 Narrative Exam Narrative: 5/5 strength in hip flexors, quadriceps, hamstrings, DF, PF, EHL bilaterally. Sensation to light touch intact throughout BLE. Calves soft, compressible, nontender and without palpable cords or masses. Intraoperative dressing w/ scant bloody drainage. Objective Labs 09/10/22 05:40 PFSH Medical History SAULO (acute kidney injury) Amputated toe of left foot (2021) Asthma Bladder cancer (~05/2010) BPH w urinary obs/LUTS CKD stage G3a/A3, GFR 45-59 and albumin creatinine ratio >300 mg/g Diabetes mellitus, type II DVT (deep venous thrombosis) (2020) GERD (gastroesophageal reflux disease) Gout History of COVID-19 (04/03/22) HLD (hyperlipidemia) HTN (hypertension) Hyperkalemia Hypoxemia JESSIE on CPAP PVD (peripheral vascular disease) Right-sided carotid artery disease RLS (restless legs syndrome) TIA (transient ischemic attack) Surgical History History of arthroplasty of right knee (~2008) History of arthroscopy of left shoulder (02/13/20) History of bladder surgery History of bone graft History of lumbar spinal fusion History of total right knee replacement (06/17/20) Hx of appendectomy Hx of arthroscopy of left knee Hx of arthroscopy of right knee Hx of cervical spine surgery Hx of eye surgery Hx of foot surgery Hx of hernia repair Hx of sinus surgery Hx of tonsillectomy S/P TURP Social History household members: spouse and family Smoking Status: Former smoker alcohol intake: current Discharge Assessment & Plan Assessment and Plan Assessment: L5-S1 post-laminectomy syndrome, spondylosis w/ radiculopathy; s/p L5-S1 fusion Plan of Treatment: Discharge home once pt voiding independently. Multimodal pain control. ASA 81mg BID x 6 weeks for VTE prophylaxis. Will send home w/ oxycodone 10mg #60; pt receives oxycodone 5mg #120 every month from his PCP, Dr Del Toro. Discharge Plan Discharge Plan Patient Disposition: Home Discharge orders & Medications Prescriptions: New oxycodone 10 mg Tablet 10 mg PO Q4H PRN (Reason: Pain, Severe (7-10)) Qty: 60 0RF docusate sodium 100 mg Capsule 100 mg PO BID PRN (Reason: constipation) Qty: 60 2RF acetaminophen 325 mg Tablet 650 mg PO Q6H PRN (Reason: Fever/Mild Pain (1-3)) Qty: 240 0RF hydroxyzine pamoate 25 mg Capsule 25 mg PO Q4HR PRN (Reason: muscle spasm) Qty: 120 0RF aspirin 81 mg Tablet,Delayed Release (Dr/Ec) 81 mg PO BID Qty: 90 0RF Continued allopurinol 100 mg tablet 200 mg PO DAILY furosemide 40 mg Tablet 40 mg PO BID terazosin 5 mg Capsule 5 mg PO BID insulin glargine [Lantus U-100 Insulin] 100 unit/mL Solution 120 unit SUBCUT QPM Patient Comments: pt reports took 80 units amlodipine 10 mg Tablet 10 mg PO QAM simvastatin 20 mg Tablet 20 mg PO BEDTIME metformin 1,000 mg Tablet 1,000 mg PO BID omeprazole 20 mg Capsule,Delayed Release(Dr/Ec) 20 mg PO BID allopurinol 300 mg Tablet 300 mg PO DAILY albuterol sulfate [ProAir HFA] 90 mcg/actuation Hfa Aerosol Inhaler 2 puff INHALATION QID PRN (Reason: Nasal Congestion) oxycodone 5 mg Tablet 10 mg PO Q6H PRN (Reason: Pain (Scale Score 1-3)) pramipexole 0.75 mg Tablet 0.75 mg PO QPM oxycodone 5 mg Tablet 5 mg PO Q4H PRN (Reason: Pain, Moderate (4-6)) Qty: 40 0RF testosterone cypionate 200 mg/mL Kit 200 mg IM Q2W insulin lispro [Humalog KwikPen Insulin] 100 unit/mL Insulin Pen 0 - 40 unit SUBCUT TID PRN (Reason: Sliding scale for hyperglycemia) Patient Comments: pt reports took 10 units carvedilol 25 mg Tablet 25 mg PO BID Rx Instructions: must administer with a meal/food lisinopril 20 mg Tablet 20 mg PO QAM magnesium oxide 400 mg magnesium Tablet 1,200 mg PO BID Discontinued aspirin 81 mg Capsule 81 mg PO DAILY Follow up/Referrals: Javi Del Toro MD [Primary Care Provider] - Irish Alejandro MD [Physician] - As previously scheduled (Follow up w/ Vinny Corona PA-C, on 09/23/2022 @ 2:00 pm at [facility] office in [place].) Diet/Activity/Treatments Diet: Diet as Tolerated Activity: No deep bending or twisting at the waist. No lifting more than 10 pounds. Cold/Heat Therapy: Heating pad to low back as needed for pain. Skin/Wound/Dressing Care Report to your healthcare provider any signs of infection, such as:: chills, fever, night sweats, unusual drainage and unusual redness Dressing: May shower; keep dressing as dry as possible. If dressing becomes wet or dirty inside, may remove and replace with clean, dry gauze. No bathing or otherwise soaking incisions. Do not apply any creams, lotions, or ointments to incisions. Visit Report/Discharge Packet Instructions: DI for Transforaminal Lumbar Interbody Fusion, DI for Prescription Opioid Use Stand Alone Forms: Patient Portal/API, Stroke Signs & Symptoms Discharge Data Primary Care Provider: Javi Del Toro Quality VTE Deep Vein Thrombosis/Pulmonary Embolism Present on Admission: No
--- NOTE | 2022-09-12 15:29 | CM.DPNOTE ---
DC Note Discharge home today as planned by patient; cleared by therapy for this plan. No CM needs identified Home w/family and close outpatient follow up JW
[2022-09-12] MEDS: TRAMADOL 50 MG TABLET PO (17:06)
[2022-09-12] MEDS: PRAMIPEXOLE 0.25 MG TABLET 0.75 MG PO (17:07)
--- NOTE | 2022-09-12 18:36 | PC.NURSE ---
lora 1830 indwelling lora placed as pt having urinary retention and discomfort with the same.
[2022-09-12] MEDS: ATORVASTATIN 20 MG TABLET 10 MG PO (21:18)
[2022-09-12] MEDS: SENNOSIDES 8.6 MG TABLET 17.2 MG PO (21:20)
[2022-09-12] MEDS: hydrOXYzine pamoate 25 MG CAPSULE PO (21:24)
[2022-09-13] MEDS: TRAMADOL 50 MG TABLET PO ×3 (00:09→13:33)
[2022-09-13 01:38] VITALS: BP 133/43; PULSE 69; RESP 18; TEMP 36.3; O2SAT 92
[2022-09-13] MEDS: ACETAMINOPHEN 325 MG TABLET 650 MG PO ×2 (03:36→13:34)
[2022-09-13 04:00] VITALS: BP 130/51; PULSE 68; RESP 18; TEMP 36.1; O2SAT 96
[2022-09-13] MEDS: PANTOPRAZOLE DR 20 MG TABLET PO (05:43)
--- NOTE | 2022-09-13 06:01 | PC.NURSE ---
Pt alert and oriented x 3-4. Tramadol and Tylenol given for pain with good results this shift. Allen removed with 10 ml water removed. No issues at this time, waiting for void.
[2022-09-13] MEDS: INSULIN LISPRO 100 UNIT/ML 3ML VIAL SUBCUT ×2 (07:57→11:59)
[2022-09-13] MEDS: allopurinoL 100 MG TABLET 200 MG PO (07:58)
[2022-09-13] MEDS: ASPIRIN EC 81 MG TABLET PO (07:58)
[2022-09-13] MEDS: METFORMIN HCL 500 MG TABLET 1000 MG PO (07:58)
[2022-09-13] MEDS: DOCUSATE 100 MG CAPSULE PO (07:58)
[2022-09-13] MEDS: MAGNESIUM OXIDE 400 MG TABLET 1200 MG PO (07:59)
[2022-09-13] MEDS: FUROSEMIDE 40 MG TABLET PO (08:05)
--- NOTE | 2022-09-13 08:21 | PC.NURSE ---
Patient is alert and oriented x2, he is making more sense today but still confused. Dressing to back will be changed prior to discharge today. His blood sugar is 154, and 1u of insulin given. Patient is eating breakfast, given tramadol at 0540.
[2022-09-13 08:42] VITALS: BP 137/48; PULSE 73; RESP 20; TEMP 36.3; O2SAT 98
--- NOTE | 2022-09-13 10:14 | PT.IPTN ---
Current Diagnoses Spinal stenosis, lumbosacral region (09/09/22) Postlaminectomy syndrome, not elsewhere classified (09/09/22) Arthrodesis status (09/09/22) Surgery Performed Operation Date: 09/09/22 13:45 Actual Procedures p L5-S1 TLIF - Irish Alejandro MD Physical Therapy Treatment Note M2 PT-IP Current Condition Start: 09/10/22 11:35 Freq: NEEDED Status: Active Protocol: Document 09/10/22 12:30 LRN (Rec: 09/10/22 12:58 LRN [id number]) Physical Therapy Current Condition Current Condition Evaluation Date 09/10/22 Treatment Diagnosis L5-S1 TLIF Onset Date 09/09/22 M3 PT-IP Subjective Start: 09/10/22 11:35 Freq: NEEDED Status: Active Protocol: Document 09/13/22 09:47 KS (Rec: 09/13/22 10:39 KS [id number]) Subjective Physical Therapy Visit Type Type Treatment Note Visit Start Time 09:47 Visit Stop Time 10:14 Total Visit Minutes 27 Notes 97% O2 on RA, nurse apporived leaving O2 off while pt in chair. Physical Therapy Visit Comments Patient Comments Pt agreeable to ambulating. Requesting shower, RN and CARAMEL CUTTER MACHINE notified. Patient Goals Pt goal is to go home. M4 PT-IP Mobility and Gait Start: 09/10/22 11:35 Freq: NEEDED Status: Active Protocol: Document 09/13/22 09:47 KS (Rec: 09/13/22 10:39 KS [id number]) PT-Bed Mobility Assessment Rolling Type of Rolling Log Rolling Level of Assist Contact Guard Assistance Supine to Sit Supine to Sit Contact Guard Assistance Scooting Scooting to Edge of Bed Contact Guard Assistance PT-Transfer Assessment Sit to and From Stand Sit to and from Stand Contact Guard Assistance Equipment Transfer Assistive Device Bed Rail,Front Wheeled Walker Orthotic/Prosthetic Devices or Brace: No Transfers Transfer Destination Chair Transfer Technique Walked to chair Transfer Ability Level of Assist Contact Guard Assistance,Use of Upper Extremities Comments Mobility Comments Pt in bed upon arrival and able to recall 2/3 precautions (no bending). CGA for logroll and sidelying<>sit as well as scooting EOB. Pt denied increase in pain with sup<>sit . Pt used some momentum and FWW for sit<>stand. He ambulated ~50 ft on 2.5L and O2 >94% throughout. He then stood ~3 min w/o O2 before sitting in chair and O2 95-97% on RA. Pt sat in chair w/ good technique and left in chair w/ all needs in reach. Refused further stair training , states he feels ready to go home and has good family support. Gait Assessment Gait Gait Assistance Required: Standby Assistance,Contact Guard Assist Distance (Feet) 50 Gait Deviations General Gait Pattern Decreased Stride Length,Wide Based Gait Factors Limiting Gait Function Factors Limiting Gait Function Decreased Activity Tolerance, Pain,Poor Balance Comments Gait Comments Pt ambulated ~50' w/ FWW, SBA with WBOS and step to gait. Stair Climbing Assessment Comments Stair Climbing Comments Refused further stair training , states he feels comfortable and capable to complete at home w/ assistance from brother. Pt offers he has had previous knee surgeries, goes up w/ R leg and down w/ L as it is weaker. PT-Balance Assessment Sitting Balance and Reactions Static Sitting Balance Ability Good Dynamic Sitting Balance Ability Good Standing Balance and Reactions Static Standing Balance Ability Good Dynamic Standing Balance Ability Good Device Used FWW M5 PT-IP Objective Assessments Start: 09/10/22 11:35 Freq: NEEDED Status: Active Protocol: Document 09/10/22 12:30 LRN (Rec: 09/10/22 12:58 LRN [id number]) Orientation Orientation/Cognition Level of Alertness Alert Orientation Name,Month,Date,Year,Place, Situation Language Function Ability No Deficits Noted Safety Awareness Understands Safety Issues Memory Description No Deficits Noted Comments Pt able to recall 3/3 precautions. NO twisting, no forced bending, lifting. Gross Range of Motion Upper Extremity ROM Assessment Within Functional Limits Lower Extremity ROM Assessment Within Functional Limits Strength Upper Extremity Strength Assessment Within Functional Limits Lower Extremity Strength Assessment Within Functional Limits Muscle Tone Muscle Tone WNL Yes M6 PT-IP Treatment Start: 09/10/22 11:35 Freq: NEEDED Status: Active Protocol: Document 09/13/22 09:47 KS (Rec: 09/13/22 10:39 KS [id number]) Physical Therapy Treatment Education Education Provided Precautions Equipment Issued Equipment Type and Company FWW, Gait Belt M7 PT-IP Assessment and Plan Start: 09/10/22 11:35 Freq: NEEDED Status: Active Protocol: Document 09/13/22 09:47 KS (Rec: 09/13/22 10:39 KS [id number]) PT Summary Assessment and Plan Potential Rehabilitation Potential Good Summary Impairments Pain,Transfers,Activity Tolerance Progress Towards Goals Progressing Toward Goals Assessment Summary Pt mostly requiring CGA for mobility today. ABle to recall 2/3 precautions. Ambualted ~ 50 ft on 2.5L and O2 >94%. O2 95-97% on RA following ambulation. Pt already has home O2 setup. Pt feels ready to d/c home today but would like a shower prior. Refused further stair training, confirms he feels capable to complete at home and has already completed here in hospital. Offers he has good family assistance. He would benefit from outpatient PT when appropriate to improve spinal mobility and stability and activity tolerance. Goals Bed Mobility Goal Independent,Standby Assistance Transfer Goal Independent,Standby Assistance Gait Goal Independent,Standby Assistance Gait Distance 100 ft Other Goals Pt able to tolerate ambulation with O2 not needed. Frequency of Treatment Frequency Of Treatment Once a Day Treatment Plan Physical Therapy Treatment Plan Transfer Training,Gait Training,Hot or Cold Pack Other Recommendations and Next Treatment limit sitting to no greater Focus than 30 minutes. Precautions Lumbar Precautions No Twisting,Limit Bending,Gait Belt above Incisional Area Other Precautions Limited lifting. Weight Bearing Status Weight Bearing Status Full Weight Bearing Recommendations To Nursing Amount of Assist Needed 1 Person Assist Discharge Recommendations PT Discharge Recommendations Home with Assistance Other Discharge Recommendations Limit sitting to 30 minutes. Transportation Needs at Discharge Private Vehicle
--- NOTE | 2022-09-13 13:00 | PM.PNPO.1 ---
Subjective Subjective Interval history: His discharge was held yesterday as he was having a little problems with slight confusion. It is much better today. He has been taking tramadol for pain. His blood pressure was a little low overnight and so they held some of his antihypertensives today. He does have a blood pressure cuff at home. Exam Vital Signs (past 8 hours): - 09/13/22 08:42 Temperature 97.4 F L Pulse Rate 73 Respiratory Rate 20 Blood Pressure 137/48 L Pulse Oximetry 98 Oxygen Flow Rate 0 Fraction of Inspired Oxygen 91 SaO2/FiO2 Ratio 342 Oxygen Delivery Method Nasal Cannula Oxygen Flow Rate 0 Narrative Exam Narrative: Dressings dry he is standing at bedside he has slight tenderness along the paraspinous muscles, so calfs are soft bilaterally he is able to fire his toe flexors and extensors Objective Labs 09/10/22 05:40 PFSH Medical History SAULO (acute kidney injury) Amputated toe of left foot (2021) Asthma Bladder cancer (~05/2010) BPH w urinary obs/LUTS CKD stage G3a/A3, GFR 45-59 and albumin creatinine ratio >300 mg/g Diabetes mellitus, type II DVT (deep venous thrombosis) (2020) GERD (gastroesophageal reflux disease) Gout History of COVID-19 (04/03/22) HLD (hyperlipidemia) HTN (hypertension) Hyperkalemia Hypoxemia JESSIE on CPAP PVD (peripheral vascular disease) Right-sided carotid artery disease RLS (restless legs syndrome) TIA (transient ischemic attack) Surgical History History of arthroplasty of right knee (~2008) History of arthroscopy of left shoulder (02/13/20) History of bladder surgery History of bone graft History of lumbar spinal fusion History of total right knee replacement (06/17/20) Hx of appendectomy Hx of arthroscopy of left knee Hx of arthroscopy of right knee Hx of cervical spine surgery Hx of eye surgery Hx of foot surgery Hx of hernia repair Hx of sinus surgery Hx of tonsillectomy S/P TURP Social History household members: spouse and family Smoking Status: Former smoker alcohol intake: current Assessment & Plan Post-op Postoperative Procedures: Procedures Operation Date: 09/09/22 13:45 Actual Procedure Side Surgeon p L5-S1 TLIF Irish Alejandro MD Postoperative day: 4 Postoperative status: doing well Postoperative plan: discharge Postoperative plan narrative: He is doing better overall. We are going to discharge to home and send a prescription for tramadol to the [facility] in [place]. We discussed ambulation program, avoidance of falls and a slow progressive strengthening program. Time Spent With Patient Time with patient: 15-24 minutes Quality VTE Deep Vein Thrombosis/Pulmonary Embolism Present on Admission: No
--- NOTE | 2022-09-13 13:27 | CM.DPC ---
DCP Discharge Home Per Ortho MD, pt's d/c was cancelled yesterday due to urinary retention, some confusion with hypotension but pt now able to void independently and weaned to room air and has home oxygen already for night time in case needed and medically stable to d/c home today with outpt f/u. Per CLEARANCE CUTTER, pt was able to ambulate well today and not confused and CGA and stable for d/c home with family. Plan: Patient to d/c home today via family POV and script sent to Pharmacy and outpt f/u with Ortho and no further SW needs at this time. Indy Umaña MSW
--- NOTE | 2022-09-13 13:46 | PC.NURSE ---
PATIENT DISCHARGE: Patient teaching done at bedside with spouse and brother present. Patient and family state understanding of instructions provided. Prescriptions were sent to [facility] from D/C orders prior, but given [facility] pharm is closed on Sundays. Dr. Humphreys was made aware to send to [facility]. Call was placed to Dr. Humphreys by nurse (myself) reporting that medications were sent again to [facility]. Doctor reports she will fix that on her end in her program. States rx's for Tramadol and Vistaril will be sent to [facility] today. Patient is made aware of plan for rx's and agreeable. Patient was able to ambulate with FWW to and was escorted out in stable condition to private vehicle accompanied by PCT and family members. VSS. Blood pressure medications were held by previous day nurse prior to this nurse acquiring patient. See MAR for details.
== END 2022-09-13 13:46 | disposition home or self-care (01) | DRG 455 ==
PROVIDERS: Admitting Provider Orthopaedic Surgery Orthopaedic Surgery of the Spine; PCP Family Medicine; Referring Provider Family Medicine; Visit Provider Orthopaedic Surgery Orthopaedic Surgery of the Spine
PROC: 0SG30AJ Fusion of Lumbosacral Joint with Interbody Fusion Device, Posterior Approach, Anterior Column, Open Approach (ICD-10-PCS; principal; 2022-09-09 13:45)
DX: M96.1 Postlaminectomy syndrome, not elsewhere classified (principal); M48.061 Spinal stenosis, lumbar region without neurogenic claudication; M47.27 Other spondylosis with radiculopathy, lumbosacral region; M10.9 Gout, unspecified; N40.0 Benign prostatic hyperplasia without lower urinary tract symptoms; I10 Essential (primary) hypertension; E11.9 Type 2 diabetes mellitus without complications; E78.5 Hyperlipidemia, unspecified; K21.9 Gastro-esophageal reflux disease without esophagitis; R41.0 Disorientation, unspecified; G47.33 Obstructive sleep apnea (adult) (pediatric); Z79.84 Long term (current) use of oral hypoglycemic drugs; Z98.890 Other specified postprocedural states; Z87.891 Personal history of nicotine dependence; Z86.718 Personal history of other venous thrombosis and embolism; Z20.822 Contact with and (suspected) exposure to COVID-19; Z79.4 Long term (current) use of insulin
CPT/HCPCS: 36415; 72100; 76000; 82962; 85014; 85018; 87635; 94760; 94762; 97116; 97162; 97165; 97530; C9803; C1713; C9290; J0131; J0330; J0690; J1170; J1815; J2250; J2405; J2704; J3010; J3490